=== PATIENT | female | born 1975 | race Caucasian/White ===

== ENCOUNTER 2022-01-12 13:51 | Emergency (ER) | payer MEDICARE, MEDICAID, SELFPAY ==
[2022-01-12 14:44] VITALS: BP 150/99; PULSE 60; RESP 18; TEMP 36.5; O2SAT 97; BMI 32.8
[2022-01-12 15:16] LABS: MANUAL DIFF FLAG NO
[2022-01-12 15:18] LABS: Basophils Absolute Auto 0.1 X10*3/uL (0.0-0.2); Basophils Percent Auto 0.6 % (0-2); Eosinophils Absolute Auto 0.4 X10*3/uL (0.0-0.4); Eosinophils Percent Auto 4.4 % (0-4); Hematocrit 30.7 % (37.0-47.0); Hemoglobin 9.2 g/dl (12.0-16.0); Imm Gran Abs Auto 0.03 X10*3/uL (0.00-0.03); Imm Gran Pct Auto 0.3 % (0.0-0.4); Lymphocytes Absolute Auto 2.3 X10*3/uL (1.2-4.9); Mean Corpuscular Hemoglobin 22.3 pg (27.0-33.0); Mean Corpuscular Volume 74.5 fL (80.0-98.0); Mean Platelet Volume 10.8 fL (9.4-12.3); Monocytes Absolute Auto 0.4 X10*3/uL (0.1-1.2); Neutrophils Absolute Auto 5.5 x10*3/uL (2.0-8.3); Neutrophils Percent Auto 63.7 % (45-73); Platelet Count 304 X10*3/uL (160-400); Red Blood Count 4.12 X10*6/uL (4.20-5.50); Red Cell Distribution Width 17.7 % (11.0-16.0); White Blood Count 8.7 X10*3/uL (4.8-10.8)
[2022-01-12 15:43] LABS: Alanine Aminotransferase 17 U/L (0-31); Albumin Level 4.3 g/dL (3.5-5.0); Alkaline Phosphatase 64 U/L (39-117); Anion Gap 12 (12-20); Aspartate Amino Transferase 27 U/L (5-31); Bilirubin Direct 0.2 mg/dL (0.0-0.5); Bilirubin Total 0.5 mg/dL (0.0-1.0); Blood Urea Nitrogen 11 mg/dL (9-16); Calcium 9.1 mg/dL (8.4-10.2); Carbon Dioxide 31 mmol/L (22-29); Chloride 101 mmol/L (96-108); Creatinine Clr Calc Pharmacy 65.4; Estimated Glomerular Filt Rate 52; Glucose Random 98 mg/dL (60-115); Iron 40 mcg/dL (30-160); Percent Iron Saturation 8 % (15-50); Potassium 3.5 mmol/L (3.3-5.1); Sodium 140 mmol/L (135-145); Total Iron Binding Capacity 495 mcg/dL (228-428); Total Protein 6.8 g/dL (6.5-8.0); Unsaturated Iron Binding 455 ug/dL
[2022-01-12 16:02] LABS: Ferritin 9 ng/mL (10-250)
[2022-01-17 03:37] LABS: Transferrin 388 mg/dL (188-341)
== END 2022-01-12 20:07 | disposition left against medical advice (07) ==
LOC: HO.ED 20:04
PROVIDERS: Physician Assistant; Emergency Provider Emergency Medicine; PCP Physician Assistant
DX: N93.9 Abnormal uterine and vaginal bleeding, unspecified (principal); R42 Dizziness and giddiness; D64.9 Anemia, unspecified
CPT/HCPCS: 36415; 80048; 80076; 82728; 83540; 84466; 85025; 99281; 99283

== ENCOUNTER 2022-02-14 12:04 | Outpatient (REF) | payer MEDICARE, MEDICAID, SELFPAY ==
--- NOTE | ~2022-02-14 | XR_ITS ---
EXAMINATION: XR HAND, RIGHT XR HAND, LEFT CLINICAL INFORMATION: Rheumatoid arthritis with rheumatoid factor, bilateral hands COMPARISON: None TECHNIQUE: Each hand is imaged in 3 views. There are a total of 6 views. FINDINGS: Right: Normal bony mineralization. No periarticular demineralization. Ulnar variance is neutral. The carpus shows no joint narrowing or erosive change or chondrocalcinosis. The MCP and interphalangeal joints are unremarkable. There is incidental bone island within shaft index finger middle phalanx. Left: Normal bony mineralization. No periarticular demineralization. Ulnar variance is neutral. The carpus shows no joint narrowing or erosive change or chondrocalcinosis. The MCP and interphalangeal joints are unremarkable. XR/XR hand LT 2V IMPRESSION: -No focal joint narrowing or erosive changes.
--- NOTE | ~2022-02-14 | XR_ITS ---
EXAMINATION: XR HAND, RIGHT XR HAND, LEFT CLINICAL INFORMATION: Rheumatoid arthritis with rheumatoid factor, bilateral hands COMPARISON: None TECHNIQUE: Each hand is imaged in 3 views. There are a total of 6 views. FINDINGS: Right: Normal bony mineralization. No periarticular demineralization. Ulnar variance is neutral. The carpus shows no joint narrowing or erosive change or chondrocalcinosis. The MCP and interphalangeal joints are unremarkable. There is incidental bone island within shaft index finger middle phalanx. Left: Normal bony mineralization. No periarticular demineralization. Ulnar variance is neutral. The carpus shows no joint narrowing or erosive change or chondrocalcinosis. The MCP and interphalangeal joints are unremarkable. XR/XR hand RT 2V IMPRESSION: -No focal joint narrowing or erosive changes.
[2022-02-14 13:24] LABS: Hematocrit 33.5 % (37.0-47.0); Hemoglobin 9.7 g/dl (12.0-16.0); Mean Corpuscular Hemoglobin 21.6 pg (27.0-33.0); Mean Corpuscular Volume 74.6 fL (80.0-98.0); Mean Platelet Volume 11.1 fL (9.4-12.3); Platelet Count 286 X10*3/uL (160-400); Red Blood Count 4.49 X10*6/uL (4.20-5.50); Red Cell Distribution Width 19.5 % (11.0-16.0); White Blood Count 6.3 X10*3/uL (4.8-10.8)
[2022-02-14 14:07] LABS: Creatinine Urine 268.23 mg/dL; Microalbum/Creatinine Ratio Ur 21.2 ug/mg cr
[2022-02-14 14:15] LABS: Alanine Aminotransferase 14 U/L (0-31); Albumin Level 4.2 g/dL (3.5-5.0); Alkaline Phosphatase 64 U/L (39-117); Anion Gap 13 (12-20); Aspartate Amino Transferase 17 U/L (5-31); Bilirubin Total 0.3 mg/dL (0.0-1.0); Blood Urea Nitrogen 11 mg/dL (9-16); Calcium 9.5 mg/dL (8.4-10.2); Carbon Dioxide 29 mmol/L (22-29); Chloride 102 mmol/L (96-108); Estimated Glomerular Filt Rate > 60; Glucose Fasting 74 mg/dL (60-99); Iron 26 mcg/dL (30-160); Percent Iron Saturation 5 % (15-50); Potassium 3.7 mmol/L (3.3-5.1); Sodium 140 mmol/L (135-145); Total Iron Binding Capacity 507 mcg/dL (228-428); Total Protein 6.7 g/dL (6.5-8.0); Unsaturated Iron Binding 481 ug/dL
[2022-02-14 14:22] LABS: Rheumatoid Factor < 15.0 IU/mL (<15.0)
[2022-02-14 14:38] LABS: TSH reflex Free T4 28.26 uIU/mL (0.32-4.0)
[2022-02-14 15:14] LABS: Free T4 (Free Thyroxine) < 0.40 ng/dL (0.71-1.85)
[2022-02-15 13:56] LABS: Cyclic Citrullinated Peptide <16 UNITS
[2022-02-16 13:32] LABS: Anti Nuclear Antibody Screen NEGATIVE (NEGATIVE)
== END 2022-02-14 12:05 | disposition home or self-care (01) ==
LOC: HO.XRAY 12:04
PROVIDERS: PCP Physician Assistant; Visit Provider Physician Assistant
DX: K27.9 Peptic ulcer, site unspecified, unspecified as acute or chronic, without hemorrhage or perforation (principal); E89.0 Postprocedural hypothyroidism; I10 Essential (primary) hypertension; M06.041 Rheumatoid arthritis without rheumatoid factor, right hand; M06.042 Rheumatoid arthritis without rheumatoid factor, left hand; D50.9 Iron deficiency anemia, unspecified
CPT/HCPCS: 36415; 73120; 80053; 82043; 83540; 84439; 84443; 85027; 86038; 86039; 86200; 86431

== ENCOUNTER 2022-02-21 12:36 | Outpatient (REF) | payer MEDICARE, MEDICAID, SELFPAY ==
--- NOTE | ~2022-02-21 | MM_ITS ---
EXAMINATION: MM SCREENING DIGITAL BREAST TOMOSYNTHESIS, BILATERAL CLINICAL INFORMATION: Screening. Asymptomatic. Age 46. No prior breast imaging. Personal history remote reduction mammoplasty, 1994. The lifetime risk of breast cancer based on the Tyrer-Cuzick Model is 10%. COMPARISON: None (current study represents initial baseline exam). TECHNIQUE: Digital breast tomosynthesis is performed in both the craniocaudal and mediolateral oblique views along with computer-aided detection (CAD). Synthesized 2D images are generated from the tomosynthesis. FINDINGS: There are scattered areas of fibroglandular density (ACR BI-RADS breast composition Category b). There are no significant masses, abnormal calcifications, or other abnormalities. The axilla are unremarkable. MM/MM tomosynthesis screening BI IMPRESSION: No mammographic evidence of malignancy. ASSESSMENT: BI-RADS 1: Negative RECOMMENDATION: Routine annual mammography screening. This patient's information was entered into a reminder system with a target due date for their next mammogram.
== END 2022-02-21 12:37 | disposition home or self-care (01) ==
LOC: HO.MAMMO 12:36
PROVIDERS: Visit Provider Physician Assistant
DX: Z12.31 Encounter for screening mammogram for malignant neoplasm of breast (principal)
CPT/HCPCS: 77063; 77067

== ENCOUNTER 2022-03-08 13:10 | Outpatient (REF) | payer MEDICARE, MEDICAID, SELFPAY ==
[2022-03-10 11:57] LABS: H Pylori Breath Test Negative (Negative)
== END 2022-03-08 13:11 | disposition home or self-care (01) ==
LOC: HO.LNP 13:10
PROVIDERS: PCP Physician Assistant; Referring Provider Physician Assistant; Visit Provider Physician Assistant
DX: K59.04 Chronic idiopathic constipation (principal); K21.9 Gastro-esophageal reflux disease without esophagitis; K27.9 Peptic ulcer, site unspecified, unspecified as acute or chronic, without hemorrhage or perforation; R13.10 Dysphagia, unspecified; N92.0 Excessive and frequent menstruation with regular cycle; D64.9 Anemia, unspecified; A04.8 Other specified bacterial intestinal infections; Z78.9 Other specified health status; Z79.899 Other long term (current) drug therapy; Z11.0 Encounter for screening for intestinal infectious diseases
CPT/HCPCS: 83013; 99202

== ENCOUNTER → 2022-03-16 13:56 | Outpatient (BNVA) | payer MEDICARE, MEDICAID, SELFPAY | PROVIDERS: PCP Physician Assistant; Visit Provider Internal Medicine | DX: E89.0 Postprocedural hypothyroidism (principal) | CPT/HCPCS: 99202 ==

== ENCOUNTER 2022-03-23 14:06 | Outpatient (REF) | payer MEDICARE, MEDICAID, SELFPAY ==
--- NOTE | ~2022-03-23 | US_ITS ---
EXAMINATION: US THYROID CLINICAL INFORMATION: [id number] diffuse (endemic) goiter. COMPARISON: None TECHNIQUE: Linear transducer grayscale and color Doppler examination with attention to the region of the thyroid. FINDINGS: SIZE: Measurements of the thyroid lobes and nodules are given in sagittal, anteroposterior and transverse dimensions respectively. Right Thyroid Lobe: 4.6 x 1.1 x 1.1 cm, volume 2.9 mL. Left Thyroid Lobe: 3.9 x 0.7 x 0.9 cm, volume 1.3 mL. Isthmus: 0.1 cm in maximum AP dimension. THYROID PARENCHYMA AND NODULES: The atrophied thyroid gland has heterogeneous echotexture. The gland has a hypervascular appearance on color Doppler images. Several clustered solid, noncalcified, smoothly marginated nodules are present in each thyroid lobe. A few of the nodules have been selected by the survey technologist for measurement, including the followin.6 x 0.5 x 0.7 cm solid, hypoechoic nodule of the right upper pole. ACR TI-RADS score of 4 points, TR4. 1 x 0.6 x 0.9 cm isoechoic nodule in the right middle lobe. ACR TI-RADS score of 3 points, TR3. 1.2 x 0.6 x 0.7 cm solid, heterogeneous, predominantly isoechoic nodule is present in the right lower pole. ACR TI-RADS score of 3 points, TR3. 0.7 x 0.5 x 0.5 cm solid hypoechoic nodule of the left upper pole. ACR TI-RADS score of 4 points, TR4. 0.8 x 0.5 x 0.6 cm isoechoic nodule with hypoechoic border is present in the left lower pole. ACR TI-RADS score of 3 points, TR3. NODES: A level 3 lymph node seen in the right neck measure 0.4 cm in short axis dimension. A level 2 lymph node is at the upper range of normal size, 0.9 cm short axis dimension, with well-preserved echogenic fatty hilum. US/US thyroid IMPRESSION: Atrophied multinodular thyroid gland. The gland has a hypervascular appearance. Recommend correlation with thyroid function tests. Based on use of ACR TI-RADS, there are no nodules that require recommendations for follow-up or fine needle aspiration-biopsy. However, ACR TI-RADS Committee recommendations serve as guidance. Ultimately, decisions regarding whether or not to perform ultrasound follow-up or FNA should account for referring physician preference, patient risk factors for thyroid cancer, patient age, comorbidities, life expectancy and any other relevant considerations. ACR TI-RADS RECOMMENDATIONS: * TR1 (0 point) and TR 2 (2 points): No FNA or follow up * TR3 (3 points): FNA if at least 2.5 cm maximum dimension. Otherwise, perform ultrasound follow up in 1, 3 and 5 years if at least 1.5 cm maximum dimension. * TR4 (4-6 points): FNA if at least 1.5 cm maximum dimension. Otherwise, perform ultrasound follow up in 1, 2, 3 and 5 years if at least 1 cm maximum dimension. * TR5 (more than or equal to 7 points): FNA if at least 1 cm in maximum dimension. Otherwise, perform ultrasound follow up every year for 5 years if at least 0.5 cm in maximum dimension.
== END 2022-03-23 14:07 | disposition home or self-care (01) ==
LOC: HO.US 14:06
PROVIDERS: Visit Provider Physician Assistant
DX: E01.0 Iodine-deficiency related diffuse (endemic) goiter (principal)
CPT/HCPCS: 76536

== ENCOUNTER 2022-03-27 13:46 | Outpatient (REF) | payer MEDICARE, MEDICAID, SELFPAY | END 2022-03-27 13:47 | disposition home or self-care (01) | LOC: HO.MDS 13:46 | PROVIDERS: Visit Provider Internal Medicine Medical Oncology | DX: D50.9 Iron deficiency anemia, unspecified (principal) | CPT/HCPCS: J1756 ==

== ENCOUNTER → 2022-04-18 13:15 | Outpatient (BNVA) | payer MEDICARE, MEDICAID, SELFPAY | PROVIDERS: PCP Physician Assistant; Referring Provider Physician Assistant; Visit Provider Physician Assistant | DX: K59.04 Chronic idiopathic constipation (principal); R13.10 Dysphagia, unspecified; D64.9 Anemia, unspecified; Z78.9 Other specified health status | CPT/HCPCS: 99212 ==

== ENCOUNTER 2022-05-10 14:04 | Outpatient (REF) | payer MEDICARE, MEDICAID, SELFPAY | END 2022-05-10 14:05 | disposition home or self-care (01) | LOC: HO.MDS 14:04 | PROVIDERS: Visit Provider Internal Medicine Medical Oncology | DX: D50.9 Iron deficiency anemia, unspecified (principal) | CPT/HCPCS: 96365; J1756 ==

== ENCOUNTER 2022-06-20 13:13 | Outpatient (REF) | payer MEDICARE, MEDICAID, SELFPAY | END 2022-06-20 13:14 | disposition home or self-care (01) | LOC: HO.MDS 13:13 | PROVIDERS: Visit Provider Internal Medicine Medical Oncology | DX: D50.9 Iron deficiency anemia, unspecified (principal) | CPT/HCPCS: 96365; J1756 ==

== ENCOUNTER 2022-06-29 13:05 | Outpatient (REF) | payer MEDICARE, MEDICAID, SELFPAY | END 2022-06-29 13:06 | disposition home or self-care (01) | LOC: HO.MDS 13:05 | PROVIDERS: Visit Provider Internal Medicine Medical Oncology | DX: D50.9 Iron deficiency anemia, unspecified (principal) | CPT/HCPCS: 96365; J1756 ==

== ENCOUNTER 2022-07-06 15:00 | Outpatient (REF) | payer MEDICARE, MEDICAID, SELFPAY | END 2022-07-06 15:01 | disposition home or self-care (01) | LOC: HO.MDS 15:00 | PROVIDERS: Visit Provider Internal Medicine Medical Oncology | DX: D50.9 Iron deficiency anemia, unspecified (principal) | CPT/HCPCS: 96365; J1756 ==

== ENCOUNTER 2022-07-14 11:58 | Outpatient (REF) | payer MEDICARE, MEDICAID, SELFPAY | END 2022-07-14 11:59 | disposition home or self-care (01) | LOC: HO.MDS 11:58 | PROVIDERS: Visit Provider Internal Medicine Medical Oncology | DX: D50.9 Iron deficiency anemia, unspecified (principal) | CPT/HCPCS: 96365; J1756 ==

== ENCOUNTER 2022-07-27 13:05 | Outpatient (REF) | payer MEDICARE, MEDICAID, SELFPAY | END 2022-07-27 13:06 | disposition home or self-care (01) | LOC: HO.MDS 13:05 | PROVIDERS: Visit Provider Internal Medicine Medical Oncology | DX: D50.9 Iron deficiency anemia, unspecified (principal) | CPT/HCPCS: 96365; J1756 ==

== ENCOUNTER 2022-08-04 14:03 | Outpatient (REF) | payer MEDICARE, MEDICAID, SELFPAY | END 2022-08-04 14:04 | disposition home or self-care (01) | LOC: HO.MDS 14:03 | PROVIDERS: Visit Provider Internal Medicine Medical Oncology | DX: D50.9 Iron deficiency anemia, unspecified (principal) | CPT/HCPCS: 96365; J1756 ==

== ENCOUNTER 2022-08-24 12:54 | Outpatient (REF) | payer MEDICARE, MEDICAID, SELFPAY ==
[2022-08-24 13:53] LABS: MANUAL DIFF FLAG NO
[2022-08-24 14:05] LABS: Basophils Percent Auto 0.3 % (0-2); Eosinophils Absolute Auto 0.4 X10*3/uL (0.0-0.4); Eosinophils Percent Auto 5.1 % (0-4); Hematocrit 40.2 % (37.0-47.0); Hemoglobin 12.5 g/dl (12.0-16.0); Imm Gran Abs Auto 0.03 X10*3/uL (0.00-0.03); Imm Gran Pct Auto 0.4 % (0.0-0.4); Lymphocytes Percent Auto 26.6 % (20-40); Mean Corpuscular HGB Conc 31.1 g/dl (31.0-35.0); Mean Corpuscular Hemoglobin 26.7 pg (27.0-33.0); Mean Corpuscular Volume 85.9 fL (80.0-98.0); Mean Platelet Volume 10.8 fL (9.4-12.3); Monocytes Absolute Auto 0.4 X10*3/uL (0.1-1.2); Monocytes Percent Auto 4.8 % (2-11); Neutrophils Absolute Auto 4.7 x10*3/uL (2.0-8.3); Neutrophils Percent Auto 62.8 % (45-73); Platelet Count 218 X10*3/uL (160-400); Red Blood Count 4.68 X10*6/uL (4.20-5.50); Red Cell Distribution Width 19.9 % (11.0-16.0); White Blood Count 7.5 X10*3/uL (4.8-10.8)
[2022-08-24 14:32] LABS: Ferritin 51 ng/mL (10-250)
== END 2022-08-24 12:55 | disposition home or self-care (01) ==
LOC: HO.MDS 12:54
PROVIDERS: Visit Provider Internal Medicine Medical Oncology
DX: D50.9 Iron deficiency anemia, unspecified (principal)
CPT/HCPCS: 36415; 82728; 85025; 96365

== ENCOUNTER 2022-09-05 12:43 | Outpatient (REF) | payer MEDICARE, MEDICAID, SELFPAY ==
[2022-09-05 14:11] LABS: Free T4 (Free Thyroxine) 1.36 ng/dL (0.71-1.85); Thyroid Stimulating Hormone 0.17 uIU/mL (0.32-4.0)
== END 2022-09-05 12:44 | disposition home or self-care (01) ==
LOC: HO.LAB 12:43
PROVIDERS: Absent Provider Internal Medicine; Visit Provider Physician Assistant
DX: E89.0 Postprocedural hypothyroidism (principal)
CPT/HCPCS: 36415; 84439; 84443

== ENCOUNTER → 2022-09-06 15:16 | Outpatient (BNVA) | payer MEDICARE, MEDICAID, SELFPAY | PROVIDERS: PCP Physician Assistant; Visit Provider Internal Medicine | DX: E89.0 Postprocedural hypothyroidism (principal); E04.1 Nontoxic single thyroid nodule; Z79.899 Other long term (current) drug therapy | CPT/HCPCS: 99212 ==

== ENCOUNTER 2022-10-10 14:09 | Outpatient (REF) | payer MEDICARE, MEDICAID, SELFPAY ==
[2022-10-11 09:12] LABS: CT PCR NOT DETECTED (Not Detect.); NG PCR NOT DETECTED (Not Detect.)
[2022-10-11 10:12] LABS: BV Int Neg Control Negative (Negative); BV Int Pos Control Positive (Positive)
[2022-10-17 10:33] LABS: HPV mRNA E6/E7 rflx Not Detected (Not Detected)
== END 2022-10-10 14:10 | disposition home or self-care (01) ==
LOC: HO.LNP 14:09
PROVIDERS: PCP Physician Assistant; Visit Provider Advanced Practice Midwife
DX: Z12.4 Encounter for screening for malignant neoplasm of cervix (principal); Z11.51 Encounter for screening for human papillomavirus (HPV); I10 Essential (primary) hypertension; N92.0 Excessive and frequent menstruation with regular cycle; N93.9 Abnormal uterine and vaginal bleeding, unspecified; Z20.2 Contact with and (suspected) exposure to infections with a predominantly sexual mode of transmission
CPT/HCPCS: 0353U; 87480; 87510; 87624; 87660; 88142; 99202

== ENCOUNTER 2022-12-01 13:22 | Outpatient (REF) | payer MEDICARE, MEDICAID, SELFPAY ==
[2022-12-01 14:50] LABS: Free T4 (Free Thyroxine) 0.93 ng/dL (0.71-1.85)
== END 2022-12-01 13:23 | disposition home or self-care (01) ==
LOC: HO.LAB 13:22
PROVIDERS: Internal Medicine; PCP Physician Assistant; Visit Provider Advanced Practice Midwife
DX: E89.0 Postprocedural hypothyroidism (principal)
CPT/HCPCS: 36415; 84439; 84443

== ENCOUNTER 2022-12-21 07:48 | Outpatient (REF) | payer MEDICARE, MEDICAID, SELFPAY ==
--- NOTE | 2022-12-21 08:47 | P.BOP_ITS ---
Brief Operative Note Date of Service: 12/21/22 Pre-op diagnosis: Goiter Procedure: EXAMINATION: US THYROID CLINICAL INFORMATION: Multinodular Thyroid COMPARISON: Prior TECHNIQUE: Linear transducer james-scale and color Doppler examination with attention to the region of the thyroid. FINDINGS: SIZE: Measurements of the thyroid lobes and nodules are given in sagittal, anteroposterior and transverse dimensions respectively. Right Thyroid Lobe: 3.2 x 1.1 x 1.1 cm, volume 2.2 mL. Parenchyma: The gland echotexture is diffusely heterogenous. Thyroid vascularity is increased. Left Thyroid Lobe: 3.2 x 0.9 x 1.0 cm, volume mL. Parenchyma: The gland echotexture is diffusely heterogenous. Thyroid vascularity is increased. Isthmus: 0.2 cm in maximum AP dimension. There are no true nodules visualized, only pseudonodules. Surgeon: Leeann Marcial, DO Was an Utility Tractor Operator used for this Procedure?: No Estimated blood loss (mL): 0
== END 2022-12-21 07:49 | disposition home or self-care (01) ==
LOC: HO.US 07:48
PROVIDERS: PCP Physician Assistant; Visit Provider Internal Medicine
DX: E04.1 Nontoxic single thyroid nodule (principal)
CPT/HCPCS: 76536

== ENCOUNTER → 2022-12-21 07:48 | Outpatient (BNV) | payer MEDICARE, MEDICAID, SELFPAY | PROVIDERS: PCP Physician Assistant; Visit Provider Internal Medicine | DX: E04.1 Nontoxic single thyroid nodule (principal) | CPT/HCPCS: 76536 ==

== ENCOUNTER 2023-01-03 08:35 | Outpatient (AMB) | payer MEDICARE, MEDICAID, SELFPAY ==
--- NOTE | 2023-01-03 08:35 | MHC.OFFVIS ---
Intake Intake Visit Reasons: FNA results Intake Note: Patient reports biopsy was cancelled, and she had an Ultrasound of the Thyroid. Pmo Consultant Required: No Allergies fentanyl Allergy (Intermediate, Verified 01/03/23 11:14) Rash morphine Allergy (Intermediate, Verified 01/03/23 11:14) Shortness of Breath Medication List - Last Reconciled 01/03/23 by Leeann Marcial, DO acetaminophen 1,000 mg PO Q8H amlodipine 5 mg PO DAILY bisacodyl (Dulcolax (bisacodyl)) 10 mg (2 x 5 mg) PO ONCE 1 day blood pressure test kit-large As directed docusate sodium (Colace) 200 mg (2 x 100 mg) PO BEDTIME enalapril maleate 20 mg PO DAILY 30 days hydromorphone 4 mg PO Q4H PRN lactulose 20 grams (30 mL) PO BID PRN 30 days levothyroxine 125 mcg PO DAILY 30 days levothyroxine 125 mcg PO DAILY 30 days lorazepam mg PO methylcellulose (laxative) (Citrucel) 500 mg PO TID metronidazole 0.75%(37.5mg/5gram) 1 appful vaginal BEDTIME 5 days nicotine 1 patch topical DAILY omeprazole 20 mg PO BID 30 days polyethylene glycol 3350 (Miralax) 17 grams PO DAILY sucralfate 1 g PO BID 4 weeks HPI HPI Comments History of Present Illness Details 47 YO Female with PMHx Grave's disease s/p I131 ablation who is seen in F/U for hypothyroidism. She reports she was diagnosed with Grave's disease at the age of 16 and underwent I131 ablation shortly after. She subsequently developed hypothyroidism and was prescribed levothyroxine. Dose has fluctuataed due to issues with compliance. I repeated her US myself and found her to have no true nodules, only pseudonodules. She does have some evidence of prominent reactive appearing lymph nodes bilaterally. Complains of fatigue and dysphagia. Otherwise has no complaints today. She does have a family history of thyroid disease in her Sister and Father. Thyroid US: 03/23/2022 Right Thyroid Lobe: 4.6 x 1.1 x 1.1 cm, volume 2.9 mL. Left Thyroid Lobe: 3.9 x 0.7 x 0.9 cm, volume 1.3 mL. Isthmus: 0.1 cm in maximum AP dimension. THYROID PARENCHYMA AND NODULES: The atrophied thyroid gland has heterogeneous echotexture. The gland has a hypervascular appearance on color Doppler images. Several clustered solid, noncalcified, smoothly marginated nodules are present in each thyroid lobe. A few of the nodules have been selected by the radioisotope technologist for measurement, including the followin.6 x 0.5 x 0.7 cm solid, hypoechoic nodule of the right upper pole. ACR TI-RADS score of 4 points, TR4. 1 x 0.6 x 0.9 cm isoechoic nodule in the right middle lobe. ACR TI-RADS score of 3 points, TR3. 1.2 x 0.6 x 0.7 cm solid, heterogeneous, predominantly isoechoic nodule is present in the right lower pole. ACR TI-RADS score of 3 points, TR3. 0.7 x 0.5 x 0.5 cm solid hypoechoic nodule of the left upper pole. ACR TI-RADS score of 4 points, TR4. 0.8 x 0.5 x 0.6 cm isoechoic nodule with hypoechoic border is present in the left lower pole. ACR TI-RADS score of 3 points, TR3. NODES: A level 3 lymph node seen in the right neck measure 0.4 cm in short axis dimension. A level 2 lymph node is at the upper range of normal size, 0.9 cm short axis dimension, with well-preserved echogenic fatty hilum. Labs: Laboratory Tests 12/01/22 13:31 TSH 6.60 H Free T4 0.93 PFSH Medical History Cervical cancer screening Cervical lymphadenopathy section wound complication Fibromyalgia Graves disease Thyroid nodule Surgical History H/O bilateral breast reduction surgery Status post cholecystectomy Family History Mother Depression Anxiety Fibromyalgia Cataract associated with other syndromes Thyroid disorder Father Stroke (cerebrum) Thyroid disorder Family/Other Breast cancer Ovarian cancer Social History Household Members: Spouse and Children Housing: Apartment Are you a primary career development coordinator to a significant other at home: No Do you presently have visiting nurse or other home services: No Alcohol intake: never Patient Tobacco Use Status: Current everyday Tobacco user Cigarettes Per Day: 7 e-Cigarette/Vaping Use: Never Used service: No Current occupational status: disabled Cognitive needs: No Hearing needs: No Vision needs: Yes (Pt will need to be refer to an eye doctor. ) Female Reproductive History Menstrual Age of Menarche: 9 Assessment & Plan Assessment & Plan (1) Hypothyroid: Code(s): E03.9 - Hypothyroidism, unspecified Qualifiers: Hypothyroidism type: postablative Qualified Code(s): E89.0 - Postprocedural hypothyroidism Plan: Labs reveal hypothyroidism. I have advised she increase her levothyroxine to 125 mcg PO daily and repeat labs in 6 weeks time. All of her questions were answered. She is in agreement with this plan of care. I spent 20 minutes in reviewing the record, seeing the patient and documenting in the medical record, including 5 minutes on the phone with the Patient. (2) Thyroid nodule: Code(s): E04.1 - Nontoxic single thyroid nodule Plan: I repeated her US myself and found her to have a diffusely heterogenous thyroid gland consistent with parker's disease. No true nodules were appreciated, so no FNA biopsy was performed. She does have prominent lymph nodes bilaterally. Plan is to repeat her US cervical lymph node mapping in 3 months time. Medications: New levothyroxine 125 mcg PO DAILY 30 days 30 tabs 3RF Telehealth Telehealth Location of provider rendering services: practice address Location of patient: address on file Patient Identification confirmed using: Name, : Yes Telehealth method: voice only Patient verbally consented to treatment: Yes Patient verbally consented to billing insurance company: Yes Patient informed of any privacy concerns related to visit: Yes Coding Level of Care Code Tele Est Pt Level 3 (82284) Diagnoses Hypothyroid E89.0 Hypothyroidism type: postablative Thyroid nodule E04.1
== END 2023-01-03 14:36 | disposition home or self-care (01) ==
LOC: HO.ENCR 08:35
PROVIDERS: PCP Physician Assistant; Visit Provider Internal Medicine
DX: E89.0 Postprocedural hypothyroidism (principal); E04.1 Nontoxic single thyroid nodule
CPT/HCPCS: 99443

== ENCOUNTER → 2023-01-03 08:35 | Outpatient (BNVA) | payer MEDICARE, MEDICAID, SELFPAY | PROVIDERS: PCP Physician Assistant; Visit Provider Internal Medicine ==

== ENCOUNTER 2023-01-08 12:32 | Outpatient (REF) | payer MEDICARE, MEDICAID, SELFPAY ==
--- NOTE | ~2023-01-08 | US_ITS ---
EXAMINATION: US SOFT TISSUE NECK CLINICAL INFORMATION: Localized enlarged lymph nodes Cervical lymph node mapping COMPARISON: 03/23/2022 ultrasound TECHNIQUE: Ultrasound of the neck soft tissues is performed with high- frequency james-scale imaging and color Doppler. FINDINGS: RIGHT NECK SOFT TISSUES: Cervical lymph nodes include: Level IB: 1.1 x 0.5 x 0.9 cm. Normal chandni architecture. Level II: 1.0 x 0.5 x 0.8 cm. Normal chandni architecture. Level VA: 1.0 x 0.4 x 0.6 cm. Abnormal, Slitlike or Absent Hilum. Level VA: 0.9 x 0.5 x 0.5 cm. Normal chandni architecture. Level VB: 3.0 x 0.5 x 1.7 cm. Abnormal, Slitlike or Absent Hilum. Level VB: 1.2 x 0.7 x 0.9 cm. Abnormal, Slitlike or Absent Hilum. LEFT NECK SOFT TISSUES: Cervical lymph nodes include: Level IB: 1.2 x 0.7 x 0.9 cm. Abnormal, irregular margins. Level IV: 1.2 x 0.3 x 0.9 cm. Normal chandni architecture. Level VA: 0.7 x 0.5 x 0.7 cm. Normal chandni architecture. Level VA: 1.9 x 0.7 x 1.0 cm. Normal chandni architecture US/US soft tiss head and/or neck IMPRESSION: 1. Bilateral abnormal lymph nodes are seen. 2. If clinically indicated further evaluation of the neck soft tissues and nodes may be performed with CT soft tissue neck with intravenous contrast.
--- NOTE | ~2023-01-08 | US_ITS ---
EXAMINATION: US PELVIS CLINICAL INFORMATION: Excessive and frequent menstruation with regular cycle LMP 11/04/2022 COMPARISON: None available. TECHNIQUE: Ultrasound of the pelvis is performed using both transabdominal and transvaginal transducers along with Doppler. Transvaginal imaging is performed due to inadequate visualization transabdominally. Limited exam due to position of uterus (tilted). Patient cannot tolerate the transvaginal exam. FINDINGS: Uterus: The uterus is anteverted and measures 9.3 x 5.0 x 5.5 cm. No focal fibroid It is difficult to visualize the endometrium. The endometrium measures 0.7 cm. Adnexa: Both ovaries are visualized. There is normal color flow to the adnexa. There is no ovarian torsion. There is no pelvic ascites or fluid collection. Right ovary measures 2.7 x 1.4 x 2.4 cm. 4.7 mL. Left ovary measures 2.0 x 1.2 x 1.5 cm. 1.9 mL. The left ovary is only seen transabdominally. US/US pelvic and transvaginal IMPRESSION: Normal pelvic ultrasound.
== END 2023-01-08 12:33 | disposition home or self-care (01) ==
LOC: HO.US 12:32
PROVIDERS: Absent Provider Internal Medicine; PCP Physician Assistant; Visit Provider Advanced Practice Midwife
DX: D50.0 Iron deficiency anemia secondary to blood loss (chronic) (principal); N92.0 Excessive and frequent menstruation with regular cycle; R59.0 Localized enlarged lymph nodes
CPT/HCPCS: 76536; 76830; 76856

== ENCOUNTER 2023-01-10 11:37 | Outpatient (AMB) | payer MEDICARE, MEDICAID, SELFPAY ==
[2023-01-10 11:38] VITALS: BP 180/100
--- NOTE | 2023-01-10 11:38 | A.OFFVIS_ITS ---
Intake Vital Signs 01/10/23 11:38 Height 5 ft 4 in BP 180/100 H Blood Pressure Location Lt brachial Position Sitting Intake Visit Reasons: emb/ultra sound follow up Corrugator Helper Required: No Accompanied by: Self / Same As Patient Allergies fentanyl Allergy (Intermediate, Verified 01/03/23 11:14) Rash morphine Allergy (Intermediate, Verified 01/03/23 11:14) Shortness of Breath Medication List - Last Reconciled 01/10/23 by Josey Chacon CNM acetaminophen 1,000 mg PO Q8H amlodipine 5 mg PO DAILY blood pressure test kit-large As directed enalapril maleate 20 mg PO DAILY 30 days hydromorphone 4 mg PO Q4H PRN levothyroxine 125 mcg PO DAILY 30 days levothyroxine 125 mcg PO DAILY 30 days lorazepam mg PO methylcellulose (laxative) (Citrucel) 500 mg PO TID nicotine 1 patch topical DAILY omeprazole 20 mg PO BID 30 days HPI emb/ultra sound follow up HPI Details Patient is here for follow-up of her ultrasound and is scheduled also for an endometrial biopsy she however is in a lot of pain because she has been in the hospital the last couple of days for bursitis in her left hip. She is moving very stiffly she has also recently had an ultrasound checking on her lymph glands in her neck that was ordered by Dr. Hooker that was done the same day as pelvic ultrasound and that is going to need follow-up she has had difficulty swallowing and occasionally loses her voice she had radiation for Graves disease years ago. Additionally she was in the hospital a month ago and was brought by ambulance from [facility] to [facility] and had pain and that got worked up and she had a lesion in her kidney that is suspicious for neoplasm. She was evaluated by a physician at [facility] and there was discussion about biopsy but the concern was about the exact placement of the lesion and consequences of doing a biopsy in that particular site and concern about spread. She has follow-up scans ordered. She does not have a current appointment in her schedule with either Dr. Hooker or her primary Duglas Levine. Because she is so uncomfortable today the endometrial biopsy will be rescheduled I did review the ultrasound with her which was essentially within normal limits though she was too uncomfortable on the day that the ultrasound was done as well and could not tolerate the transvaginal portion of the ultrasound. There was no abnormal finding on the ultrasound however so this is of some assurance. We will reschedule her endometrial biopsy but I recommend also that she passed by the offices of 1 of her other care providers here while she is here today and make a follow-up appointment so that somebody can be involved with looking at the entire T of the picture of issues going on for her so that her care is not scattered. She is also going to be starting classes in substance abuse counseling, which she has experience in, at [facility]-- she is looking forward to that she does have a therapist for support and will be seeing her or him on Sunday. We will reschedule the [facility] Medical History Cervical cancer screening Cervical lymphadenopathy section wound complication Fibromyalgia Graves disease Thyroid nodule Surgical History H/O bilateral breast reduction surgery Status post cholecystectomy Family History Mother Depression Anxiety Fibromyalgia Cataract associated with other syndromes Thyroid disorder Father Stroke (cerebrum) Thyroid disorder Family/Other Breast cancer Ovarian cancer Social History Household Members: Spouse and Children Housing: Apartment Are you a primary youth care professional to a significant other at home: No Do you presently have visiting nurse or other home services: No Alcohol intake: never Patient Tobacco Use Status: Current everyday Tobacco user Cigarettes Per Day: 7 e-Cigarette/Vaping Use: Never Used service: No Current occupational status: disabled Cognitive needs: No Hearing needs: No Vision needs: Yes (Pt will need to be refer to an eye doctor. ) Female Reproductive History Menstrual Age of Menarche: 9 Physical Exam Vital Signs: Last Vital Signs BP 180/100 H 01/10/23 11:38 Results AMB Test Urine AMB Test Urine Negative Last Edit by Karolina Isbell CMA on 12:05 Results Reviewed Results Reviewed: Laboratory Last Values Tst Clinic Negative 01/10/23 11:54 Patient: Hemalatha Valdez MR#: [id number] : 1975 Acct:[id number] Age/Sex: 47 / F ADM Date: 01/08/23 Loc: HO.US Attending Dr: Josey Chacon CNM Ordering Physician: Josey Chacon CNM Date of Service: 01/08/23 Procedure(s): US pelvic and transvaginal Accession Number(s): [id number] cc: Josey Cahcon CNM~ EXAMINATION:? US PELVIS CLINICAL INFORMATION:? Excessive and frequent menstruation with regular cycle LMP 11/04/2022 COMPARISON: None available. TECHNIQUE: Ultrasound of the pelvis is performed using both transabdominal and transvaginal transducers along with Doppler. Transvaginal imaging is performed due to inadequate visualization transabdominally. Limited exam due to position of uterus (tilted). Patient cannot tolerate the transvaginal exam. FINDINGS: Uterus: The uterus is anteverted and measures 9.3 x 5.0 x 5.5 cm.? No focal fibroid It is difficult to visualize the endometrium. The endometrium measures 0.7 cm. Adnexa: Both ovaries are visualized. There is normal color flow to the adnexa. There is no ovarian torsion.? There is no pelvic ascites or fluid collection. Right ovary measures 2.7 x 1.4 x 2.4 cm. 4.7 mL. Left ovary measures 2.0 x 1.2 x 1.5 cm. 1.9 mL. The left ovary is only seen transabdominally. US/US pelvic and transvaginal IMPRESSION: Normal pelvic ultrasound. Dictated By: Bárbara Edmonds MD Signed By: <Electronically signed by Bárbara Edmonds MD in [facility]> 01/09/23 0947 Assessment & Plan Assessment & Plan (1) Cervical lymphadenopathy: Code(s): R59.0 - Localized enlarged lymph nodes (2) Cervical cancer screening: Comment: 10/10/2022 Pap is negative with negative HPV. Code(s): Z12.4 - Encounter for screening for malignant neoplasm of cervix (3) Abnormal uterine bleeding (AUB): Code(s): N93.9 - Abnormal uterine and vaginal bleeding, unspecified (4) Graves disease: Code(s): E05.00 - Thyrotoxicosis with diffuse goiter without thyrotoxic crisis or storm (5) Thyroid nodule: Code(s): E04.1 - Nontoxic single thyroid nodule (6) HTN (hypertension): Code(s): I10 - Essential (primary) hypertension Qualifiers: Hypertension type: primary hypertension Qualified Code(s): I10 - Essential (primary) hypertension (7) Kidney neoplasm: Comment: See CT scans from [facility]. Code(s): D49.519 - Neoplasm of unspecified behavior of unspecified kidney Plan Patient is here for follow-up of her ultrasound and is scheduled also for an endometrial biopsy she however is in a lot of pain because she has been in the hospital the last couple of days for bursitis in her left hip. She is moving very stiffly she has also recently had an ultrasound checking on her lymph glands in her neck that was ordered by Dr. Hooker that was done the same day as pelvic ultrasound and that is going to need follow-up she has had difficulty swallowing and occasionally loses her voice she had radiation for Graves disease years ago. Additionally she was in the hospital a month ago and was brought by ambulance from [facility] to [facility] and had pain and that got worked up and she had a lesion in her kidney that is suspicious for neoplasm. She was evaluated by a physician at [facility] and there was discussion about biopsy but the concern was about the exact placement of the lesion and consequences of doing a biopsy in that particular site and concern about spread. She has follow-up scans ordered. She does not have a current appointment in her schedule with either Dr. Hooker or her primary Duglas Levine. Because she is so uncomfortable today the endometrial biopsy will be rescheduled I did review the ultrasound with her which was essentially within normal limits though she was too uncomfortable on the day that the ultrasound was done as well and could not tolerate the transvaginal portion of the ultrasound. There was no abnormal finding on the ultrasound however so this is of some assurance. We will reschedule her endometrial biopsy but I recommend also that she passed by the offices of 1 of her other care providers here while she is here today and make a follow-up appointment so that somebody can be involved with looking at the entire T of the picture of issues going on for her so that her care is not scattered. She is also going to be starting classes in substance abuse counseling, which she has experience in, at [facility]-- she is looking forward to that she does have a therapist for support and will be seeing her or him on Sunday. We will reschedule the EMB. Orders: Orders AMB HCG Urine Test Today N93.9 - Abnormal uterine and vaginal bleeding, unspecified Coding Level of Care Code Est Pt Level 3 (36326) Diagnoses Cervical lymphadenopathy R59.0 Cervical cancer screening Z12.4 Abnormal uterine bleeding (AUB) N93.9 Graves disease E05.00 Thyroid nodule E04.1 HTN (hypertension) I10 Hypertension type: primary hypertension Kidney neoplasm D49.519
== END 2023-01-10 12:49 | disposition home or self-care (01) ==
PROVIDERS: PCP Physician Assistant; Visit Provider Advanced Practice Midwife
DX: R59.0 Localized enlarged lymph nodes (principal); Z12.4 Encounter for screening for malignant neoplasm of cervix; N93.9 Abnormal uterine and vaginal bleeding, unspecified; E05.00 Thyrotoxicosis with diffuse goiter without thyrotoxic crisis or storm; E04.1 Nontoxic single thyroid nodule; I10 Essential (primary) hypertension; D49.519 Neoplasm of unspecified behavior of unspecified kidney
CPT/HCPCS: 99213

== ENCOUNTER → 2023-01-10 11:37 | Outpatient (BNVA) | payer MEDICARE, MEDICAID, SELFPAY | PROVIDERS: PCP Physician Assistant; Visit Provider Advanced Practice Midwife | DX: R59.0 Localized enlarged lymph nodes (principal); N93.9 Abnormal uterine and vaginal bleeding, unspecified; E05.00 Thyrotoxicosis with diffuse goiter without thyrotoxic crisis or storm; E04.1 Nontoxic single thyroid nodule; I10 Essential (primary) hypertension; D49.519 Neoplasm of unspecified behavior of unspecified kidney | CPT/HCPCS: 81025; 99212 ==

== ENCOUNTER 2023-03-29 15:29 | Outpatient (AMB) | payer MEDICARE, MEDICAID, SELFPAY ==
[2023-03-29 15:31] VITALS: BP 124/76; PULSE 61; BMI 29.4
--- NOTE | 2023-03-29 15:31 | MHC.OFFVIS ---
Intake Vital Signs 03/29/23 15:31 Height 5 ft 4 in Weight 171 lb 1.259 oz BMI 29.4 BP 124/76 Blood Pressure Location Lt brachial Position Sitting Pulse 61 Pulse Source Pulse Oximeter Intake Visit Reasons: Thyroid/Ohri/# OUT OF SERVICE Intake Note: Previous patient of Dr. Grijalva present today for Thyroid follow up visit. Central Supply Supervisor Required: No Accompanied by: Self / Same As Patient Allergies fentanyl Allergy (Intermediate, Verified 03/29/23 15:41) Rash morphine Allergy (Intermediate, Verified 03/29/23 15:41) Shortness of Breath Medication List - Last Reconciled 03/29/23 by Willian Romero MD amlodipine 5 mg PO DAILY blood pressure test kit-large As directed enalapril maleate 20 mg PO DAILY 30 days hydromorphone 4 mg PO Q4H PRN levothyroxine 125 mcg PO DAILY 30 days HPI HPI Comments History of Present Illness Details 47 YO Female with PMHx Grave's disease s/p I131 ablation who is seen in F/U for hypothyroidism. . The patient last saw Dr. Grijalva on 01/03/2023 She reports she was diagnosed with Grave's disease at the age of 16 and underwent I131 ablation shortly after. She subsequently developed hypothyroidism and was prescribed levothyroxine. She is currently on levothyroxine 125 mcg Dose has fluctuataed due to issues with compliance. I repeated her US myself and found her to have no true nodules, only pseudonodules. She does have some evidence of prominent reactive appearing lymph nodes bilaterally. Complains of fatigue and dysphagia. Otherwise has no complaints today. She does have a family history of thyroid disease in her Sister and Father. Thyroid US: 03/23/2022 Right Thyroid Lobe: 4.6 x 1.1 x 1.1 cm, volume 2.9 mL. Left Thyroid Lobe: 3.9 x 0.7 x 0.9 cm, volume 1.3 mL. Isthmus: 0.1 cm in maximum AP dimension. THYROID PARENCHYMA AND NODULES: The atrophied thyroid gland has heterogeneous echotexture. The gland has a hypervascular appearance on color Doppler images. Several clustered solid, noncalcified, smoothly marginated nodules are present in each thyroid lobe. A few of the nodules have been selected by the mechanical technologist for measurement, including the followin.6 x 0.5 x 0.7 cm solid, hypoechoic nodule of the right upper pole. ACR TI-RADS score of 4 points, TR4. 1 x 0.6 x 0.9 cm isoechoic nodule in the right middle lobe. ACR TI-RADS score of 3 points, TR3. 1.2 x 0.6 x 0.7 cm solid, heterogeneous, predominantly isoechoic nodule is present in the right lower pole. ACR TI-RADS score of 3 points, TR3. 0.7 x 0.5 x 0.5 cm solid hypoechoic nodule of the left upper pole. ACR TI-RADS score of 4 points, TR4. 0.8 x 0.5 x 0.6 cm isoechoic nodule with hypoechoic border is present in the left lower pole. ACR TI-RADS score of 3 points, TR3. NODES: A level 3 lymph node seen in the right neck measure 0.4 cm in short axis dimension. A level 2 lymph node is at the upper range of normal size, 0.9 cm short axis dimension, with well-preserved echogenic fatty hilum. Labs: Laboratory Tests 12/01/22 13:31 TSH 6.60 H Free T4 0.93 PFSH Medical History Cervical cancer screening Cervical lymphadenopathy section wound complication Fibromyalgia Graves disease Thyroid nodule Surgical History H/O bilateral breast reduction surgery Status post cholecystectomy Family History Mother Depression Anxiety Fibromyalgia Cataract associated with other syndromes Thyroid disorder Father Stroke (cerebrum) Thyroid disorder Family/Other Breast cancer Ovarian cancer Social History Household Members: Spouse and Children Housing: Apartment Are you a primary director of patient care to a significant other at home: No Do you presently have visiting nurse or other home services: No Alcohol intake: never Patient Tobacco Use Status: Current everyday Tobacco user Cigarettes Per Day: 7 e-Cigarette/Vaping Use: Never Used service: No Current occupational status: disabled Cognitive needs: No Hearing needs: No Vision needs: Yes (Pt will need to be refer to an eye doctor. ) Female Reproductive History Menstrual Age of Menarche: 9 Physical Exam Vital Signs: Last Vital Signs Pulse 61 03/29/23 15:31 BP 124/76 03/29/23 15:31 BMI result Body Mass Index 29.4 Const Other: Thyroid gland is decreased in size weighs about 5 g. There are no thyroid nodules palpate Assessment & Plan Assessment & Plan (1) Hypothyroid: Code(s): E03.9 - Hypothyroidism, unspecified Qualifiers: Hypothyroidism type: postablative Qualified Code(s): E89.0 - Postprocedural hypothyroidism Plan: This is a 47-year-old female with history of post-ablated hypothyroidism. She is currently being treated 125 mcg levothyroxine. She appears to be clinically euthyroid. Plan is to recheck TSH and free T4 adjust levothyroxine. (2) Cervical lymphadenopathy: Code(s): R59.0 - Localized enlarged lymph nodes Plan: She has abnormal cervical lymph nodes seen on ultrasound. Will discussed with patient either repeating neck ultrasound or sending for 2nd opinion either to Dr. Gamboa at [facility]. She is agreeing to go and have the abnormal lymph nodes evaluated Orders: Referrals Endocrinology Referral E03.9 - Hypothyroidism, unspecified, R59.0 - Localized enlarged lymph nodes Coding Level of Care Code Est Pt Level 3 (55192) Diagnoses Postablative hypothyroidism E89.0 Hypothyroidism type: postablative Cervical lymphadenopathy R59.0
== END 2023-03-29 16:09 | disposition home or self-care (01) ==
PROVIDERS: PCP Physician Assistant; Visit Provider Internal Medicine Endocrinology, Diabetes & Metabolism
DX: E89.0 Postprocedural hypothyroidism (principal); R59.0 Localized enlarged lymph nodes
CPT/HCPCS: 99213

== ENCOUNTER → 2023-03-29 15:29 | Outpatient (BNVA) | payer MEDICARE, MEDICAID, SELFPAY | PROVIDERS: PCP Physician Assistant; Visit Provider Internal Medicine Endocrinology, Diabetes & Metabolism | DX: E89.0 Postprocedural hypothyroidism (principal); R59.0 Localized enlarged lymph nodes | CPT/HCPCS: 99212 ==

== ENCOUNTER 2023-04-16 15:35 | Outpatient (AMB) | payer MEDICARE, MEDICAID, SELFPAY ==
[2023-04-16 15:36] VITALS: BP 140/100; PULSE 59; O2SAT 98; BMI 28.7
--- NOTE | 2023-04-16 15:36 | MHC.PC.OV ---
Vital Signs 04/16/23 15:36 Height 5 ft 4 in Weight 167 lb 8 oz BMI 28.7 BP 140/100 H Blood Pressure Location Lt brachial Position Sitting Pulse 59 Pulse Source Pulse Oximeter Pulse Oximetry (%) 98 Oxygen Delivery Method Room Air Intake Visit Reasons: follow up Intake Note: Pt is here routine follow up, Pt been expericing right shoulder pain for 5 months, possible tair [employer] Required: No Accompanied by: Self / Same As Patient Allergies fentanyl Allergy (Intermediate, Verified 04/16/23 16:11) Rash morphine Allergy (Intermediate, Verified 04/16/23 16:11) Shortness of Breath Medication List - Last Reconciled 04/16/23 by Duglas Levine PA-C blood pressure test kit-large As directed enalapril maleate 20 mg PO DAILY 30 days hydromorphone 4 mg PO Q4H PRN levothyroxine 125 mcg PO DAILY 30 days Tobacco use date assessed: 02/06/22 Dental Screening Dental Screen Date: 04/16/23 Did you have a dental visit in the last 12 months?: Yes Did you have a dental problem in the last 6 months where you did not have access to dental care?: No Was dental information given to patient?: Patient has dentist HPI follow up HPI Details Patient is a 48-year-old female here today for follow-up visit.. She does have a past medical history significant for hypertension, Hypothyroidism, ( Graves), , GERD, Peptic ulcer disease, tobacco dependency, opiate dependency, rheumatoid arthritis and fibromyalgia. Has not been seen here to primary care for quite a while. She does report being homeless recently and now has an apartment concerns-->Recently found to have a renal mass , has been followed by urology and oncology. No biopsy done. Reports having left shoulder pain over the 4 months. No trauma . .. HTN: Blood pressure today in office elevated.Having headaches, She reports she was on blood pressure medication the past though has not been taking any in the past few months. .. Opiate dependency: Continues on methadone for methadone clinic nearby. .. Graves: Most recent TSH slightly elevated Has had a radio ablation of her thyroid in the past, Has been having voice changes , swallowing difficulty and a fullness sensation in her neck. Has follow-up with endocrinology and noted to have cervical lymphadenopathy. Has been referred to endocrine surgeon .. RA: Patient was told she had rheumatoid arthritis and a clinical diagnosis while she was living in [place]. She would like a formal workup on her bilateral hand pain and stiffness. [facility] Medical History Cervical cancer screening Cervical lymphadenopathy section wound complication Fibromyalgia Graves disease Thyroid nodule Surgical History Status post cholecystectomy H/O bilateral breast reduction surgery Family History Mother Depression Anxiety Fibromyalgia Cataract associated with other syndromes Thyroid disorder Father Stroke (cerebrum) Thyroid disorder Family/Other Breast cancer Ovarian cancer Household Members: Spouse and Children Housing: Apartment Are you a primary care director to a significant other at home: No Do you presently have visiting nurse or other home services: No Alcohol intake: never Patient Tobacco Use Status: Current everyday Tobacco user Cigarettes Per Day: 7 e-Cigarette/Vaping Use: Never Used service: No Current occupational status: disabled Cognitive needs: No Hearing needs: No Vision needs: Yes (Pt will need to be refer to an eye doctor. ) Female Reproductive History Menstrual Age of Menarche: 9 Questionnaire PHQ-9 Over the last 2 weeks, how often have you been bothered by any of the following problems? 1. Little interest or pleasure in doing things: nearly every day 2. Feeling down, depressed, or hopeless: nearly every day 3. Trouble falling or staying asleep, or sleeping too much: nearly every day 4. Feeling tired or having little energy: nearly every day 5. Poor appetite or overeating: nearly every day 6. Feeling bad about yourself - or that you are a failure or have let yourself or your family down: nearly every day 7. Trouble concentrating on things, such as reading the newspaper or watching television: nearly every day 8. Moving or speaking so slowly that other people could have noticed. Or the opposite - being so fidgety or restless that you have been moving around a lot more than usual: several days 9. Thoughts that you would be better off or of hurting yourself in some way: not at all Total score: 22 [id number] - PHQ-9 Billing: Yes Source: Developed by Drs. Willian Diaz, Dave Ellis and colleagues, with an educational tae from [employer]. Thrive Questionnaire Date Thrive assessed: 04/16/23 I am a: Patient What is your living situation today?: I have a steady place to live Within the past 12 months, did the food you bought not last and you didn't have the money to get more?: Never true Within the past 12 months, did you worry whether your food would run out before you got money to buy more?: Never true Do you have trouble paying for medicines?: No Do you have trouble getting transportation to medical appointments?: No Do you have trouble paying your heating and electricity bill?: No Do you have trouble taking care of your child, family member or friend?: No Do you have trouble with day-to-day activities such as bathing, preparing meals, shopping, managing finances, etc.?: No Are you currently unemployed and looking for a job?: No Are you interested in more education?: No Please select the resources that you would like help with: None Currently or been in a relationship where the following occur: no concerns reported AUDIT C Alcohol Use Questionnaire (AUDIT-C) 1. How often do you have a drink containing alcohol?: Never 3. How often do you have six or more drinks on one occasion?: Never Total Score: 0 AMISHA-7 AMB Questionnaire AMISHA-7 Date AMISHA - 7 assessed: 04/16/23 Feeling nervous, anxious, or on edge: 3 = Nearly every day Not being able to stop or control worryin = Nearly every day Worrying too much about different things: 3 = Nearly every day Trouble relaxin = Several days Being so restless that it is hard to sit still: 1 = Several days Becoming easily annoyed or irritable: 1 = Several days Feeling afraid as if something awful might happen: 1 = Several days Total AMISHA-7 score (0-4 normal; 5-9 mild; 10-14 moderate; 15-21 severe): 13 Source: Developed by Christina Valverde Kurt Kroenke and colleagues, with an educational tae from [employer]. AMISHA-7 Assessment Billing AMISHA-7 Assessment Tool: AMISHA-7 Assessment 94151 Review of Systems Const Denies headache(s) Eyes Denies loss of vision ENT Denies vertigo, Denies dizziness, Denies headache(s) and Denies sore throat Card Denies chest pain, Denies leg edema and Denies lightheadedness Resp Denies cough, Denies hemoptysis and Denies wheezing GI Denies abdominal pain, Denies melena, Denies constipation, Denies diarrhea and Denies vomiting Denies urinary frequency, Denies dysuria and Denies urinary urgency Musc Details: + bilateral hand pain Reports arthralgias, Denies joint swelling, Denies numbness and Denies tingling Neuro Denies Abnormal speech present, Denies behavioral changes, Denies vertigo, Denies dizziness, Denies headache(s), Denies loss of vision, Denies memory loss, Denies numbness and Denies tingling Psych Denies anxiety, Denies behavioral changes, Denies depression, Denies memory loss and Denies panic attacks Jean/Lymph Denies easy bleeding and Denies easy bruising Aller/Immun Denies wheezing Physical exam (Primary Care) Vital Signs: Last Vital Signs Pulse 59 04/16/23 15:36 BP 140/100 H 04/16/23 15:36 Pulse Ox 98 04/16/23 15:36 Oxygen Delivery Method Room Air 04/16/23 15:36 BMI result Body Mass Index 28.7 Tobacco/Smoking Status: Tobacco use Status Tobacco use date assessed 02/06/22 04/16/23 15:38 Patient Tobacco Use Status Current everyday Tobacco 04/16/23 15:38 e-Cigarette/Vaping Use Never Used 04/16/23 15:38 PHQ-9: PHQ-9 Score PHQ-9: Total score 22 04/16/23 16:17 Thrive Assessment: Date of Thrive Assessment Date Thrive assessed 04/16/23 04/16/23 16:04 Currently or been in a relationship where the following occur: no concerns reported Const General: healthy appearing, no acute distress, alert and awake Nutritional Appearance: well nourished Orientation/consciousness: oriented to person, oriented to place and oriented to time HENMT Ears: TM's normal bilaterally General nose exam: Normal nasal mucous membranes and turbinates present Eyes Conjunctivae: conjunctivae normal Sclerae: sclerae normal Pupils: Equal, round and reactive pupils present Neck Neck: Yes no lymphadenopathy and Yes no JVD Thyroid: Thyroid normal Carotids: no bruits Resp Effort & Inspection: normal respiratory effort and not tachypneic Auscultation: no crackles, no rales, no rhonchi and no wheezes Cardio Rate: regular rate Rhythm: regular rhythm Heart sounds: no murmurs and normal S1 and S2 GI Palpation (GI): Soft to palpation, nontender, no hepatomegaly and no splenomegaly Auscultation: normal bowel sounds Skin General skin exam: no rashes or lesions noted and dry skin Neuro General: oriented to person, oriented to place and oriented to time Cranial nerves: Yes Equal, round and reactive pupils present Speech: No Abnormal speech present Gait exam (Neuro): Normal gait present Motor exam (neuro): no tremor noted Extrem Other: RIGHT SHOULDER: LIMITED RANGE OF MOTION DUE TO PAIN, NEGATIVE EMPTY CAN, NEGATIVE HERNANDEZ TEST. Left upper extremity: full ROM Right lower extremity: full ROM; no edema Left lower extremity: full ROM; no edema Psych Mental Status: mental status grossly normal Speech and movement: Normal speech and movement present Affect: normal affect Attitude: cooperative Thought process: Normal thought process present Assessment and Plan Assessment & Plan (1) Tendinopathy of right shoulder: Code(s): M67.911 - Unspecified disorder of synovium and tendon, right shoulder Plan: Reports a 4 month history of right shoulder decreased range of motion and pain. Denies any trauma to her right shoulder recently. Will get x-ray and refer to orthopedics for evaluation. (2) Polyarthritis: Code(s): M13.0 - Polyarthritis, unspecified Plan: Reports bilateral hand pain. X-rays and January of 2022 without any osteoarthritis. SNEHAL and rheumatoid factor negative. Will trial meloxicam to use on an as-needed basis (3) Graves disease: Code(s): E05.00 - Thyrotoxicosis with diffuse goiter without thyrotoxic crisis or storm Plan: Patient followed by endocrinology. Continues on levothyroxine. Most recent TSH slightly elevated. She was found to have cervical lymphadenopathy and referred for to to endocrine surgeon (4) PUD (peptic ulcer disease): Code(s): K27.9 - Peptic ulcer, site unspecified, unspecified as acute or chronic, without hemorrhage or perforation Plan: Patient does have a peptic ulcer disease, she continues on PPI therapy with decent relief. (5) HTN (hypertension): Code(s): I10 - Essential (primary) hypertension Qualifiers: Hypertension type: primary hypertension Qualified Code(s): I10 - Essential (primary) hypertension Plan: Patient's blood pressure elevated today in office. Will add on amlodipine 5 mg for better blood pressure control. Advised to continue monitoring blood pressure at home with goal blood pressure to be below 140/90 (6) Kidney neoplasm: Comment: See CT scans from [facility]. Code(s): D49.519 - Neoplasm of unspecified behavior of unspecified kidney Plan: Was followed by a Oncology for her renal neoplasm. Biopsy has been taking with benign results. Has been given hydromorphone for flank pain though reports and is not effective for (7) Opiate dependence: Code(s): F11.20 - Opioid dependence, uncomplicated Qualifiers: Substance use status: in remission Qualified Code(s): F11.21 - Opioid dependence, in remission Plan: Continues on methadone through local methadone clinic. Orders: Orders Comprehensive [place]. Panel Fast 04/16/23 I10 - Essential (primary) hypertension IRON PROFILE 04/16/23 D50.0 - Iron deficiency anemia secondary to blood loss (chronic), D50.9 - Iron deficiency anemia, unspecified PT Evaluation and Treatment 04/16/23 M67.911 - Unspecified disorder of synovium and tendon, right shoulder XR shoulder RT min 2V 04/16/23 M67.911 - Unspecified disorder of synovium and tendon, right shoulder Microalbumin, Random (w Creat) 04/16/23 I10 - Essential (primary) hypertension Lipid Panel 04/16/23 I10 - Essential (primary) hypertension Complete Blood Count no Diff 04/16/23 D50.0 - Iron deficiency anemia secondary to blood loss (chronic) Referrals Orthopedics Referral M67.911 - Unspecified disorder of synovium and tendon, right shoulder Medications: New omeprazole 20 mg PO DAILY 90 days 90 caps 1RF K27.9 - Peptic ulcer, site unspecified, unspecified as acute or chronic, without hemorrhage or perforation meloxicam 15 mg PO DAILY 15 days 15 tabs 1RF D50.0 - Iron deficiency anemia secondary to blood loss (chronic), M13.0 - Polyarthritis, unspecified amlodipine 5 mg PO DAILY 90 days 90 tabs 1RF I10 - Essential (primary) hypertension Refilled blood pressure test kit-large As directed 1 ea 0RF I10 - Essential (primary) hypertension Coding Level of Care Code Est Pt Level 4 (09835) Diagnoses Tendinopathy of right shoulder M67.911 Polyarthritis M13.0 Graves disease E05.00 PUD (peptic ulcer disease) K27.9 Primary hypertension I10 Hypertension type: primary hypertension Kidney neoplasm D49.519 Opioid dependence in remission F11.21 Substance use status: in remission Additional Codes AMISHA-7 Assessment Billing - AMISHA-7 Assessment Tool: AMISHA-7 Assessment 36716 ([id number])
== END 2023-04-16 16:40 | disposition home or self-care (01) ==
PROVIDERS: PCP Physician Assistant; Visit Provider Physician Assistant
DX: M67.911 Unspecified disorder of synovium and tendon, right shoulder (principal); M13.0 Polyarthritis, unspecified; F11.21 Opioid dependence, in remission; E05.00 Thyrotoxicosis with diffuse goiter without thyrotoxic crisis or storm; K27.9 Peptic ulcer, site unspecified, unspecified as acute or chronic, without hemorrhage or perforation; I10 Essential (primary) hypertension; D49.519 Neoplasm of unspecified behavior of unspecified kidney
CPT/HCPCS: 99214

== ENCOUNTER 2023-04-26 12:17 | Outpatient (REF) | payer MEDICARE, MEDICAID, SELFPAY | END 2023-04-26 12:18 | disposition home or self-care (01) | LOC: HO.HOSX 12:17 | PROVIDERS: Visit Provider Physician Assistant | DX: Z13.89 Encounter for screening for other disorder (principal) ==

== ENCOUNTER 2023-08-20 11:03 | Emergency (ER) | payer MEDICARE, MEDICAID, SELFPAY ==
--- NOTE | ~2023-08-20 | XR_ITS ---
EXAMINATION: XR CHEST CLINICAL INFORMATION: Cough COMPARISON: None available. TECHNIQUE: Frontal view of the chest was obtained. FINDINGS: The lungs are mildly hypoinflated. No focal consolidation is seen. No evidence of pneumothorax, pleural effusion, or pulmonary edema. The cardiomediastinal contour is unremarkable. No acute osseous findings are seen. XR/XR chest 1V IMPRESSION: Low lung volumes without acute findings.
[2023-08-20 11:32] VITALS: BP 125/77; PULSE 80; RESP 18; TEMP 36.1; O2SAT 98; BMI 31.9
--- NOTE | 2023-08-20 11:32 | ED.GENADULT ---
HPI - General Adult General Chief complaint: General Medical Stated complaint: both legs swollen from knees down Time Seen by Provider: 08/20/23 21:52 Source: patient Mode of arrival: ambulatory History of Present Illness HPI narrative: 48-year-old female arrives today with complaints about mild bilateral lower extremity swelling but denies any traumatic injury and denies any fevers or chills. Patient states that she has kidney cancer and is currently being [facility] at [facility]. Patient states that the swelling started proximally 4 days ago. Related Data Home Medications Medication Instructions Recorded Confirmed hydromorphone 4 mg tablet 4 mg PO Q4H PRN pain 01/03/23 04/16/23 Previous Rx's Medication Instructions Recorded levothyroxine 125 mcg tablet 125 mcg PO DAILY 30 days #30 tabs 01/03/23 meloxicam 15 mg tablet 15 mg PO DAILY 15 days #15 tabs 04/16/23 amlodipine 5 mg tablet 5 mg PO DAILY 90 days #90 tabs 06/21/23 blood pressure test kit-large #1 ea 06/21/23 omeprazole 20 mg capsule,delayed 20 mg PO DAILY 90 days #90 caps 06/21/23 release enalapril maleate 20 mg tablet 20 mg PO DAILY 30 days #30 tabs 08/16/23 nitrofurantoin 100 mg PO Q12H 5 days #10 caps 08/21/23 monohydrate/macrocrystals 100 mg capsule (Macrobid) Allergies Allergy/AdvReac Type Severity Reaction Status Date / Time fentanyl Allergy Intermediate Rash Verified 04/16/23 16:11 morphine Allergy Intermediate Shortness Verified 04/16/23 16:11 of Breath ibuprofen [From Motrin] AdvReac Stomach Verified 08/20/23 11:32 Upset Review of Systems Review of Systems: Pertinent positives and negatives as stated in HPI PMFSH Past Medical History Source: nursing notes reviewed Medical History Cervical lymphadenopathy Cervical cancer screening Fibromyalgia Thyroid nodule Graves disease section wound complication Surgical History Status post cholecystectomy H/O bilateral breast reduction surgery Family History Family History Mother Depression Anxiety Fibromyalgia Cataract associated with other syndromes Thyroid disorder Father Stroke (cerebrum) Thyroid disorder Family/Other Breast cancer Ovarian cancer Social History Social History Household Members: Spouse and Children Housing: Apartment Are you a primary healthcare manager to a significant other at home: No Do you presently have visiting nurse or other home services: No Alcohol intake: never Patient Tobacco Use Status: Current everyday Tobacco user Cigarettes Per Day: 7 e-Cigarette/Vaping Use: Never Used Advance Directives: No Advance Directives Information Provided: No service: No Current occupational status: disabled Cognitive needs: No Hearing needs: No Vision needs: Yes (Pt will need to be refer to an eye doctor. ) Physical Exam ED Vital Signs: Vital Signs - 24 hr 08/20/23 11:32 08/20/23 21:02 08/20/23 21:44 Temperature 97 F 99.2 F 98.5 F Pulse Rate 80 134 H 121 H Respiratory Rate 18 16 17 Blood Pressure 125/77 194/117 H 157/99 H Pulse Oximetry 98 99 98 Oxygen Delivery Method Room Air Room Air Room Air 08/20/23 22:53 08/21/23 01:08 Temperature Pulse Rate 115 H 98 Respiratory Rate 19 20 Blood Pressure 139/95 H 157/99 H Pulse Oximetry 98 97 Oxygen Delivery Method Room Air Room Air BMI result Body Mass Index 31.9 VITAL SIGNS: Reviewed. GENERAL: Well developed, well nourished, in no acute distress. HEAD: Normocephalic/atraumatic EYES: PERRLA, EOMI LUNGS: Normal breath sounds. No adventitious sounds or accessory muscle use. SpO2<98> CARDIOVASCULAR: Regular rate and rhythm without noted murmurs ABDOMEN: Soft, non-tender, non-distended with bowel sounds. MUSCULOSKELETAL: No tenderness, deformities, or effusions noted on gross inspection. EXTREMITIES: No cyanosis, clubbing or edema. BILATERAL LOWER EXTREMITIES: No abnormalities noted, no erythema/induration, trace pitting edema noted on right lower extremity. SKIN: Inspection of the skin reveals no rashes NEUROLOGIC: Alert and oriented x 4. Strength and sensation to light touch were grossly intact x 4. Course Course Course Narrative: RME performed by Gloria Mi PA-C. Patient is a 48 year old assigned female at presenting to the emergency department with bilateral lower leg warmth, swelling, and pain. Patient states that over the last 4 days her legs have been swollen, warm, and tingling. Detailed physical exam and review of systems are deferred to the coating and embossing unit operator. Labs ordered. Patient placed back in the waiting room pending room availability and results. Medications Administered Discontinued Medications Generic Name Dose Route Start Last Admin Trade Name Pradeepq PRN Reason Stop Dose Admin Magnesium Sulfate 2 gm in 50 mls @ 150 mls/hr 08/20/23 23:31 08/21/23 00:05 Magnesium Sulfate/H2o IV 08/20/23 23:50 Infused ONCE ONE Infusion Medical Decision Making Medical Decision Making MDM Narrative: 48-year-old female with self-reported history kidney cancer and has clinical presentation with subtle bilateral lower extremity edema, right greater than left,DDX: No concern for cellulitis/thrombophlebitis/DVT I reviewed all investigations and hematologic indices are negative for leukocytosis/left shift/anemia or thrombocytopenia. Chemistry indices are negative for JG/electrolyte derangements but patient is noted to have elevated transaminases without elevation of T bili or alkaline phosphatase. Urinalysis positive for bacteria and leukocyte esterase. Viral testing negative for COVID-19/influenza. Due to the observed QTC prolongation, patient received magnesium sulfate 2 g. Repeat EKG demonstrates complete resolution of QTC prolongation, urinalysis will be treated as UTI, all results and findings discussed with the patient at bedside. Differential Diagnosis Differential Diagnoses: The differential diagnosis associated with the presentation includes Please see the discussion above Admission/Observation Consideration of admission/observation: Escalation of care including admission/observation considered Please see the discussion above Lab Data [facility] Lab Attestation statement: I reviewed the patient's lab results. Please see the discussion above 08/20/23 11:43 08/20/23 11:43 Labs: Lab Results 08/20/23 08/20/23 08/20/23 Range/Units 11:43 23:15 23:24 WBC 7.8 (4.8-10.8) X10*3/uL RBC 4.37 (4.20-5.50) X10*6/uL Hgb 12.7 (12.0-16.0) g/dl Hct 38.6 (37.0-47.0) % MCV 88.3 (80.0-98.0) fL MCH 29.1 (27.0-33.0) pg MCHC 32.9 (31.0-35.0) g/dl RDW 13.9 (11.0-16.0) % Plt Count 230 (160-400) X10*3/uL MPV 9.9 (9.4-12.3) fL Immature Gran % (Auto) 0.4 (0.0-0.4) % Neut % (Auto) 60.1 (45-73) % Lymph % (Auto) 27.8 (20-40) % [place] % (Auto) 6.0 (2-11) % Eos % (Auto) 5.1 H (0-4) % Baso % (Auto) 0.6 (0-2) % Lymph # (Auto) 2.2 (1.2-4.9) X10*3/uL [place] # (Auto) 0.5 (0.1-1.2) X10*3/uL Eos # (Auto) 0.4 (0.0-0.4) X10*3/uL Baso # (Auto) 0.1 (0.0-0.2) X10*3/uL Abs Immat Gran (auto) 0.03 (0.00-0.03) X10*3/uL Absolute Neuts (auto) 4.7 (2.0-8.3) x10*3/uL Absolute Nucleated RBC 0.000 (0.0-0.012) X10*3/uL Nucleated RBC % (auto) 0.0 (0.0-0.2) /100WBC ESR 12 (0-20) MM/HR Sodium 140 (135-145) mmol/L Potassium 4.1 (3.3-5.1) mmol/L Chloride 107 (96-108) mmol/L Carbon Dioxide 27 (22-29) mmol/L Anion Gap 10 L (12-20) BUN 20 H (9-16) mg/dL Creatinine 0.75 (0.5-1.4) mg/dL Estim Creat Clear Calc 94.3 Estimated GFR > 60 Random Glucose 111 (60-115) mg/dL Calcium 9.6 (8.4-10.2) mg/dL Magnesium 2.0 (1.6-2.6) mg/dL Total Bilirubin 0.6 (0.0-1.0) mg/dL AST 187 H (5-31) U/L ALT 162 H (0-31) U/L Alkaline Phosphatase 106 (39-117) U/L C-Reactive Protein 0.65 H (< or = 0.50) mg/dL Total Protein 6.7 (6.5-8.0) g/dL Albumin 3.9 (3.5-5.0) g/dL Urine Color Yellow Urine Appearance Clear Urine pH 6.5 (5.0-9.0) Ur Specific [place] 1.015 (1.005-1.025) Urine Protein Trace (Neg-Trace) mg/dL Urine Glucose (UA) Negative (Negative) mg/dL Urine Ketones Negative (Negative) mg/dL Urine Blood Trace H (Negative) Urine Nitrite Negative (Negative) Ur Leukocyte Esterase Trace H (Negative) Urine RBC 3-5 H (0-2) /HPF Urine WBC 0-5 (0-5) /HPF Ur Squamous Epith Cells 0-2 (0-2) /HPF Urine Bacteria 2+ (None Seen) Hyaline Casts 0-2 (0-2) /LPF COVID-19 ([place]FF[place]) Negative (Negative) COVID-19 Clin Com See Note Influenza Type A (KUN) Negative (Negative) Influenza Type B (KUN) Negative (Negative) Influenza A & B Note See Note Independent Interpretation I performed an independent interpretation of an: EKG Interpretation: Sinus tachycardia, HR-119, no STEMI, MI/QRS are within normal limits and QTC is prolonged-[id number]: Sinus rhythm, HR-95, no STEMI, MI/QRS/QTC is within normal limits. Radiology Impression Discussion of test interpretation with radiology: I have reviewed the radiologist's reading. Radiologist Impression: Please see the discussion above External Record Review External record reviewed: Outpatient record, Prior outpatient labs and Prior outpatient radiology Chronic Conditions Patient?s care impacted by: Hypertension Critical Care Time Critical Care Time Critical Care Time: Yes Total Critical Care Time: 30 Attestation: I personally attest to this time spent taking care of the patient. Discharge Plan Discharge Clinical Impression: Venous insufficiency, Urinary tract infection, Prolonged QT interval Patient Disposition: Home, Self-Care Instructions: Urinary Tract Infection in Women (ED), Venous Insufficiency (DC) Additional Instructions: 1. Resume all home medications as prescribed. 2. Complete the entire course of antibiotics as prescribed. 3. Follow-up with your primary care doctor in the next 1-2 days. Return to the ER for any worsening symptoms. Prescriptions: New nitrofurantoin monohyd/m-cryst [Macrobid] 100 mg capsule 100 mg PO Q12H 5 Days Qty: 10 0RF Rx Instructions: must administer with a meal/food No Action amlodipine 5 mg tablet 5 mg PO DAILY 90 Days Qty: 90 1RF (DME) blood pressure test kit-large Kit See Rx Instructions .Route Qty: 1 0RF Rx Instructions: As directed omeprazole 20 mg capsule,delayed release(DR/EC) 20 mg PO DAILY 90 Days Qty: 90 1RF enalapril maleate 20 mg tablet 20 mg PO DAILY 30 Days Qty: 30 3RF meloxicam 15 mg tablet 15 mg PO DAILY 15 Days Qty: 15 1RF hydromorphone 4 mg tablet 4 mg PO Q4H PRN (Reason: pain) levothyroxine 125 mcg tablet 125 mcg PO DAILY 30 Days Qty: 30 3RF Referrals: Duglas Levine PA-C [Primary Care Provider] -
[2023-08-20 11:49] LABS: MANUAL DIFF FLAG NO
[2023-08-20 11:52] LABS: Basophils Absolute Auto 0.1 X10*3/uL (0.0-0.2); Basophils Percent Auto 0.6 % (0-2); Eosinophils Absolute Auto 0.4 X10*3/uL (0.0-0.4); Eosinophils Percent Auto 5.1 % (0-4); Hematocrit 38.6 % (37.0-47.0); Hemoglobin 12.7 g/dl (12.0-16.0); Imm Gran Abs Auto 0.03 X10*3/uL (0.00-0.03); Imm Gran Pct Auto 0.4 % (0.0-0.4); Lymphocytes Absolute Auto 2.2 X10*3/uL (1.2-4.9); Lymphocytes Percent Auto 27.8 % (20-40); Mean Corpuscular HGB Conc 32.9 g/dl (31.0-35.0); Mean Corpuscular Hemoglobin 29.1 pg (27.0-33.0); Mean Corpuscular Volume 88.3 fL (80.0-98.0); Mean Platelet Volume 9.9 fL (9.4-12.3); Monocytes Absolute Auto 0.5 X10*3/uL (0.1-1.2); Neutrophils Absolute Auto 4.7 x10*3/uL (2.0-8.3); Neutrophils Percent Auto 60.1 % (45-73); Platelet Count 230 X10*3/uL (160-400); Red Blood Count 4.37 X10*6/uL (4.20-5.50); Red Cell Distribution Width 13.9 % (11.0-16.0); White Blood Count 7.8 X10*3/uL (4.8-10.8)
[2023-08-20 12:08] LABS: Alanine Aminotransferase 162 U/L (0-31); Albumin Level 3.9 g/dL (3.5-5.0); Alkaline Phosphatase 106 U/L (39-117); Anion Gap 10 (12-20); Aspartate Amino Transferase 187 U/L (5-31); Bilirubin Total 0.6 mg/dL (0.0-1.0); Blood Urea Nitrogen 20 mg/dL (9-16); C Reactive Protein 0.65 mg/dL (< or = 0.50); Calcium 9.6 mg/dL (8.4-10.2); Carbon Dioxide 27 mmol/L (22-29); Chloride 107 mmol/L (96-108); Creatinine Clr Calc Pharmacy 94.3; Estimated Glomerular Filt Rate > 60; Glucose Random 111 mg/dL (60-115); Potassium 4.1 mmol/L (3.3-5.1); Sodium 140 mmol/L (135-145); Total Protein 6.7 g/dL (6.5-8.0)
[2023-08-20 12:32] LABS: Erythrocyte Sedimentation Rate 12 MM/HR (0-20)
[2023-08-20 21:02] VITALS: BP 194/117; PULSE 134; RESP 16; TEMP 37.3; O2SAT 99
--- NOTE | 2023-08-20 21:05 | ECG_ITS ---
Test Reason : SINUS TACH Blood Pressure : / mmHG Vent. Rate : 119 BPM Atrial Rate : 119 BPM P-R Int : 104 ms QRS Dur : 094 ms QT Int : 440 ms P-R-T Axes : 000 013 037 degrees QTc Int : 618 ms Sinus tachycardia with short MT Prolonged QT Abnormal ECG No previous ECGs available Referred By: Generic ED Physician Electronically Signed By:Beck Schneider
--- NOTE | 2023-08-20 21:11 | MHC.EDTECH ---
BUSINESS PROCESS ENGINEER,FRED KULKARNI CALLED FOR UPDATE. PHONE # [phone]. PROGRAM # [phone]
[2023-08-20 21:44] VITALS: BP 157/99; PULSE 121; RESP 17; TEMP 36.9; O2SAT 98
[2023-08-20 22:53] VITALS: BP 139/95; PULSE 115; RESP 19; O2SAT 98
[2023-08-20] MEDS: Magnesium Sulfate/H2O 2 GM/50 ML PIGGYBACK IV (23:36)
[2023-08-20 23:37] LABS: Appearance Urine Clear; Color Urine Yellow; Glucose Urine UA Negative (Negative); Leukocyte Esterase Urine Trace (Negative); Nitrite Urine Negative (Negative); PH 6.5 (5.0-9.0); Specific Gravity - Urine 1.015 (1.005-1.025); UMIC TRIGGER UACC YES; Urine Blood Trace (Negative); Urine Ketones Negative (Negative); Urine Protein Trace mg/dL (Neg-Trace)
[2023-08-20 23:43] LABS: Bacteria Urine 2+ (None Seen); Hyaline Casts Urine 0-2 /LPF (0-2); Squamous Epithelial Cell Urine 0-2 /HPF (0-2); WBC Urine 0-5 /HPF (0-5)
[2023-08-20 23:50] LABS: COVID-19 Test Negative (Negative); IDNOW Serial# 08D9AD1C; IDNOW Serial# 152EDE1D; Influenza A Negative (Negative); Influenza B2 Negative (Negative)
--- NOTE | 2023-08-21 00:46 | ECG_ITS ---
Test Reason : PROLONGED QTC Blood Pressure : / mmHG Vent. Rate : 095 BPM Atrial Rate : 095 BPM P-R Int : 170 ms QRS Dur : 092 ms QT Int : 350 ms P-R-T Axes : 046 009 016 degrees QTc Int : 439 ms Normal sinus rhythm Normal ECG When compared with ECG of 20-AUG-2023 21:13, OR interval has increased T wave inversion less evident in Inferior leads Nonspecific T wave abnormality has replaced inverted T waves in Lateral leads Referred By: Bárbara Pantoja Electronically Signed By:Beck Schneider
[2023-08-21 01:08] VITALS: BP 157/99; PULSE 98; RESP 20; O2SAT 97
[2023-08-21 01:56] VITALS: BP 157/99; PULSE 98; RESP 20; TEMP 36.6; O2SAT 98
== END 2023-08-21 01:57 | disposition home or self-care (01) ==
PROVIDERS: Physician Assistant Medical; Emergency Provider Student in an Organized Health Care Education/Training Program; PCP Physician Assistant
DX: I87.2 Venous insufficiency (chronic) (peripheral) (principal); N39.0 Urinary tract infection, site not specified; R94.31 Abnormal electrocardiogram [ECG] [EKG]; Z11.52 Encounter for screening for COVID-19
CPT/HCPCS: 36415; 71045; 80053; 81001; 83735; 85025; 85652; 86140; 87502; 87635; 93005; 96365; 99284; J3475

== ENCOUNTER → 2023-08-20 21:05 | Outpatient (BNV) | payer MEDICARE, MEDICAID, SELFPAY | PROVIDERS: Emergency Provider Student in an Organized Health Care Education/Training Program; PCP Physician Assistant; Visit Provider Internal Medicine Cardiovascular Disease | DX: R94.31 Abnormal electrocardiogram [ECG] [EKG] (principal) | CPT/HCPCS: 93010 ==

== ENCOUNTER → 2023-08-21 00:46 | Outpatient (BNV) | payer MEDICARE, MEDICAID, SELFPAY | PROVIDERS: Emergency Provider Student in an Organized Health Care Education/Training Program; PCP Physician Assistant; Visit Provider Internal Medicine Cardiovascular Disease | DX: I45.81 Long QT syndrome (principal) | CPT/HCPCS: 93010 ==

== ENCOUNTER 2023-08-28 11:43 | Outpatient (AMB) | payer MEDICARE, MEDICAID, SELFPAY ==
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
[2023-08-28 11:49] VITALS: BP 118/70; PULSE 90; RESP 17; O2SAT 98; BMI 30.2
== END 2023-08-28 12:20 | disposition home or self-care (01) ==
PROVIDERS: PCP Physician Assistant; Visit Provider Physician Assistant
DX: I10 Essential (primary) hypertension (principal); F11.21 Opioid dependence, in remission; F33.1 Major depressive disorder, recurrent, moderate; E05.00 Thyrotoxicosis with diffuse goiter without thyrotoxic crisis or storm; F17.200 Nicotine dependence, unspecified, uncomplicated; D49.519 Neoplasm of unspecified behavior of unspecified kidney; R79.89 Other specified abnormal findings of blood chemistry; F41.1 Generalized anxiety disorder
CPT/HCPCS: 99214

== ENCOUNTER 2023-08-28 12:28 | Outpatient (REF) | payer MEDICARE, MEDICAID, SELFPAY ==
[2023-08-28 13:19] LABS: Hematocrit 42.4 % (37.0-47.0); Hemoglobin 13.6 g/dl (12.0-16.0); Mean Corpuscular HGB Conc 32.1 g/dl (31.0-35.0); Mean Corpuscular Hemoglobin 28.3 pg (27.0-33.0); Mean Corpuscular Volume 88.3 fL (80.0-98.0); Mean Platelet Volume 9.7 fL (9.4-12.3); Platelet Count 275 X10*3/uL (160-400); Red Cell Distribution Width 13.8 % (11.0-16.0); White Blood Count 10.5 X10*3/uL (4.8-10.8)
[2023-08-28 14:01] LABS: Alanine Aminotransferase 227 U/L (0-31); Albumin Level 4.5 g/dL (3.5-5.0); Alkaline Phosphatase 123 U/L (39-117); Anion Gap 9 (12-20); Aspartate Amino Transferase 366 U/L (5-31); Bilirubin Total 0.9 mg/dL (0.0-1.0); Blood Urea Nitrogen 15 mg/dL (9-16); Calcium 10.2 mg/dL (8.4-10.2); Carbon Dioxide 32 mmol/L (22-29); Chloride 105 mmol/L (96-108); Cholesterol 220 mg/dL (<200); Estimated Glomerular Filt Rate > 60; Glucose Fasting 95 mg/dL (60-99); HDL Cholesterol 68 mg/dL (>40); Iron 123 mcg/dL (30-160); LDL Cholesterol Calculated 138 mg/dL (<100); Percent Iron Saturation 33 % (15-50); Potassium 3.9 mmol/L (3.3-5.1); Sodium 142 mmol/L (135-145); Total Iron Binding Capacity 374 mcg/dL (228-428); Total Protein 7.7 g/dL (6.5-8.0); Triglycerides 71 mg/dL (<150); Unsaturated Iron Binding 251 ug/dL
[2023-08-28 14:12] LABS: TSH reflex Free T4 1.05 uIU/mL (0.32-4.0); Thyroid Stimulating Hormone 1.05 uIU/mL (0.32-4.0)
[2023-08-28 14:13] LABS: Free T4 (Free Thyroxine) 1.37 ng/dL (0.71-1.85)
[2023-08-28 14:19] LABS: Free T4 (Free Thyroxine) 1.34 ng/dL (0.71-1.85); Thyroid Stimulating Hormone 1.04 uIU/mL (0.32-4.0)
== END 2023-08-28 12:29 | disposition home or self-care (01) ==
LOC: HO.LAB 12:28
PROVIDERS: Absent Provider Physician Assistant; PCP Physician Assistant; Visit Provider Internal Medicine
DX: I10 Essential (primary) hypertension (principal); E05.00 Thyrotoxicosis with diffuse goiter without thyrotoxic crisis or storm; E89.0 Postprocedural hypothyroidism; D50.0 Iron deficiency anemia secondary to blood loss (chronic)
CPT/HCPCS: 36415; 80053; 80061; 83540; 84439; 84443; 85027

== ENCOUNTER 2023-09-14 08:35 | Outpatient (REF) | payer MEDICARE, MEDICAID, SELFPAY ==
--- NOTE | ~2023-09-14 | US_ITS ---
EXAMINATION: US ABDOMEN LIMITED CLINICAL INFORMATION: Other specified abnormal findings of blood chemistry. Elevated LFTs. Evaluate liver for liver cyst versus fatty liver. Per respiratory services manager, patient states history of renal cancer. COMPARISON: None available. TECHNIQUE: Real-time imaging of the right upper quadrant abdominal viscera. Limited visualization due to bowel gas. FINDINGS: PANCREAS: Limited visualization of the pancreatic head, tail and portions of the body. Imaged portion of the pancreatic body is heterogeneous in echotexture. LIVER: Increased hepatic parenchymal heterogeneity and echogenicity could be associated with hepatocellular disease/hepatic steatosis and substantially limits visualization. Substantially limited visualization of the left hepatic lobe, in particular due to bowel gas. GALLBLADDER: Surgically absent. COMMON BILE DUCT: Normal in caliber measuring 0.7 cm in diameter. RIGHT KIDNEY: No hydronephrosis. No renal calculi. Limited visualization. The kidney measures 11.2 cm in maximum dimension. FREE FLUID: None. US/US abdomen limited IMPRESSION: 1. Imaged portion of the pancreatic body is heterogeneous in echotexture. Increased hepatic parenchymal heterogeneity and echogenicity could be associated with hepatocellular disease/hepatic steatosis and substantially limits visualization. Substantially limited visualization of the left hepatic lobe in particular due to bowel gas. Gallbladder surgically absent. 2. Correlation with clinical exam and laboratory tests recommended to determine further management.
== END 2023-09-14 08:36 | disposition home or self-care (01) ==
LOC: HO.US 08:35
PROVIDERS: PCP Physician Assistant; Visit Provider Physician Assistant
DX: R79.89 Other specified abnormal findings of blood chemistry (principal)
CPT/HCPCS: 76705

== ENCOUNTER 2023-10-02 17:05 | Emergency (ER) | payer MEDICARE, MEDICAID, SELFPAY ==
--- NOTE | ~2023-10-02 | XR_ITS ---
EXAMINATION: XR CHEST CLINICAL INFORMATION: Chest pain and shortness of breath. COMPARISON: Chest radiograph 08/21/2023. TECHNIQUE: Frontal view of the chest was obtained. FINDINGS: Low volumes with bronchovascular crowding and mild bibasilar subsegmental atelectasis. No focal consolidation, pleural effusion or pneumothorax. Stable appearance of the cardiomediastinal silhouette. No acute osseous findings. XR/XR chest 1V IMPRESSION: Low lung volumes with bronchovascular crowding and mild bibasilar subsegmental atelectasis.
--- NOTE | 2023-10-02 17:25 | ECG_ITS ---
Test Reason : CHEST PAIN Blood Pressure : / mmHG Vent. Rate : 062 BPM Atrial Rate : 062 BPM P-R Int : 144 ms QRS Dur : 088 ms QT Int : 422 ms P-R-T Axes : 040 003 020 degrees QTc Int : 428 ms Normal sinus rhythm Minimal voltage criteria for LVH, may be normal variant ( R in aVL ) Possible Inferior infarct , age undetermined Abnormal ECG When compared with ECG of 21-AUG-2023 00:56, Vent. rate has decreased BY 33 BPM Referred By: Generic ED Physician Electronically Signed By:Beck Schneider
[2023-10-02 17:39] VITALS: BP 136/82; BP 150/84; PULSE 68; PULSE 80; RESP 18; TEMP 36.6; O2SAT 95; O2SAT 98
--- NOTE | 2023-10-02 17:48 | ED.GENADULT ---
HPI - General Adult General Chief complaint: Chest Pain Stated complaint: 12/04 chest pain,sob,htn Time Seen by Provider: 10/02/23 17:39 Source: patient and EMS Mode of arrival: EMS Limitations: no limitations History of Present Illness HPI narrative: Patient comes to the emergency room complaining of 7 hours of chest pain. [facility] Patient states that the pain is on the left side of the chest and radiates towards the shoulder and into the back. Patient admits to using for pain for 2 days ago. Patient was recently seen here for lower extremity edema. Patient denies any changes. Patient denies taking Lasix. EMS gave the patient in the ambulance 325 mg of aspirin Related Data Home Medications ?Medication ?Instructions ?Recorded ?Confirmed hydromorphone 4 mg tablet 4 mg PO Q4H PRN pain 01/03/23 08/28/23 Previous Rx's ?Medication ?Instructions ?Recorded blood pressure test kit-large #1 ea 06/21/23 levothyroxine 125 mcg tablet 125 mcg PO DAILY 30 days #30 tabs 08/28/23 amlodipine 5 mg tablet 5 mg PO DAILY 90 days #90 tabs 08/29/23 clonidine HCl 0.1 mg tablet 0.1 mg PO TID 30 days #90 tabs 09/06/23 lisinopril 20 mg tablet 20 mg PO DAILY 30 days #30 tabs 09/06/23 omeprazole 20 mg capsule,delayed 20 mg PO DAILY 90 days #90 caps 09/21/23 release hydroxyzine HCl 25 mg tablet 25 mg PO BID PRN anxiety 30 days 09/24/23 #60 tabs cyclobenzaprine 5 mg tablet 5 mg PO TID PRN muscle spasm #10 10/02/23 tabs furosemide 40 mg tablet (Lasix) 40 mg PO DAILY #5 tabs 10/02/23 Allergies Allergy/AdvReac Type Severity Reaction Status Date / Time fentanyl Allergy Intermediate Rash Verified 10/02/23 17:47 morphine Allergy Intermediate Shortness Verified 10/02/23 17:47 of Breath ibuprofen [From Motrin] AdvReac Stomach Verified 10/02/23 17:47 Upset Review of Systems Review of Systems: Constitutional : No Weight loss, No Fever, No Chills, No Night Sweats, No Fatigue, No Malaise ENT/Mouth : No Hearing loss, No Ear Pain, No Nasal Congestion, No Sinus Pain, No Hoarseness, No sore throat, No Rhinorrhea, No Swallowing Difficulty Eyes: No Eye Pain, No Swelling, No Redness, No Foreign Body, No Discharge, No Vision Changes Cardiovascular : Complaining of 7 hours of chest pain and SOB, No Dyspnea on Exertion, No Orthopnea, No Edema, No Palpitations Respiratory : No Cough, No Sputum, No Wheezing, No Smoke Exposure, No Dyspnea Gastrointestinal : No Nausea, No Vomiting, No Diarrhea, No Constipation, No abdominal Pain, No Hematochezia, No Melena Genitourinary : no irregular bleeding, No Dysuria, No Urinary Frequency, No Hematuria, No Urinary Incontinence, No Urgency, No Flank Pain, No Urinary Flow Changes, No Hesitancy Musculoskeletal : No joint pain, No Myalgias, No Joint Swelling Skin : No Skin Lesions, No rash Neuro : No Weakness, No Numbness, No Paresthesias, No Loss of Consciousness, No Dizziness, No Headache Psych : No Anxiety/Panic, No Depression, No SI/HI/AH/VH, admits using cocaine Heme/Lymph: No Bruising, No Bleeding,No Lymphadenopathy Endocrine : No Polyuria, No Polydipsia, No Temperature Intolerance PMFSH Past Medical History Medical History Cervical lymphadenopathy Cervical cancer screening Fibromyalgia Thyroid nodule Graves disease section wound complication Surgical History Status post cholecystectomy H/O bilateral breast reduction surgery Family History Family History Mother Depression Anxiety Fibromyalgia Cataract associated with other syndromes Thyroid disorder Father Stroke (cerebrum) Thyroid disorder Family/Other Breast cancer Ovarian cancer Social History Social History Household Members: Spouse and Children Housing: Apartment Are you a primary home care specialist to a significant other at home: No Do you presently have visiting nurse or other home services: No Alcohol intake: never Patient Tobacco Use Status: Current everyday Tobacco user Cigarettes Per Day: 7 Smoked in Last 30 Days: Yes e-Cigarette/Vaping Use: Never Used Substance Use Type: Crack/Cocaine Substance Use Frequency: Occasionally Last Used Substance: Days (ago) Any prior treatment program specific to substance use: No Advance Directives: No Advance Directives Information Provided: Yes Do you have a plan to hurt others: No Plan service: No Current occupational status: disabled Cognitive needs: No Hearing needs: No Vision needs: Yes (Pt will need to be refer to an eye doctor. ) Physical Exam ED Vital Signs: Vital Signs - 24 hr 10/02/23 17:39 10/02/23 19:34 Temperature 98 F 97.5 F Pulse Rate 68 71 Respiratory Rate 18 24 H Blood Pressure 150/84 H 166/98 H Pulse Oximetry 98 97 Oxygen Delivery Method Room Air Room Air BMI result Body Mass Index 30.0 Const Other: Appearance: Alert. Oriented X3. No acute distress. Eyes: Pupils equal, round and reactive to light. ENT: Pharynx normal. Neck: Normal inspection. Neck supple. No lymph nodes noted. No crepitus CVS: Normal heart rate and rhythm. Pulses normal. Normal S1 and S2, reproducible chest pain to palpation on the left side of the chest and shoulder Respiratory: No respiratory distress. Breath sounds normal. No Wheezing. No rales Abdomen: Soft and nontender. No rigidity. No distention. Skin: Skin warm and dry. Normal skin color. Normal skin turgor. Extremities: No lower extremity edema. No Lacerations. No Rash Neuro: Oriented X 3. No motor deficit. No sensory deficit. Moving all extremities. No slurred speech. CN 2 through 12 grossly intact Psych: calm, cooperative, normal affect Course Course Course Narrative: -all of patient's labs and imaging pending -patient already received full dose of aspirin Medications Administered Discontinued Medications Generic Name Dose Route Start Last Admin Trade Name Debi PRN Reason Stop Dose Admin Aspirin 325 mg 10/02/23 17:47 10/02/23 17:50 Aspirin Enteric Coated 325 Mg Tablet.Dr WILLARD 10/02/23 17:48 Not Given ONCE ONE Medical Decision Making Medical Decision Making MDM Narrative: -my interpretation of EKG: Normal sinus rhythm, heart rate 62, no ST segment depression or elevation, no T-wave inversion, QTC 428 -my interpretation of labs, normal hematology and chemistry, troponin is negative, BNP slightly bumped at 01:09. Urine positive for methadone, oxycodone, opiates. Patient states that the last time she used cocaine was about 3 days ago. -my interpretation of chest x-ray: No obvious abnormality. No pleural effusions. -for the lower extremity edema, patient will be sent home with Lasix Differential Diagnosis Differential Diagnoses: The differential diagnosis associated with the presentation includes (Coronary vasospasm, ACS, musculoskeletal pain.) Admission/Observation Consideration of admission/observation: Escalation of care including admission/observation considered (Concerning patient's history and presentation, observation was considered) Lab Data MDM Lab Attestation statement: I reviewed the patient's lab results. 10/02/23 18:51 10/02/23 18:51 Labs: Lab Results 10/02/23 10/02/23 Range/Units 18:51 19:59 WBC 7.7 (4.8-10.8) X10*3/uL RBC 4.42 (4.20-5.50) X10*6/uL Hgb 12.4 (12.0-16.0) g/dl Hct 39.1 (37.0-47.0) % MCV 88.5 (80.0-98.0) fL MCH 28.1 (27.0-33.0) pg MCHC 31.7 (31.0-35.0) g/dl RDW 13.8 (11.0-16.0) % Plt Count 207 (160-400) X10*3/uL MPV 9.8 (9.4-12.3) fL Immature Gran % (Auto) 0.1 (0.0-0.4) % Neut % (Auto) 46.0 (45-73) % Lymph % (Auto) 42.3 H (20-40) % [place] % (Auto) 7.2 (2-11) % Eos % (Auto) 4.1 H (0-4) % Baso % (Auto) 0.3 (0-2) % Lymph # (Auto) 3.3 (1.2-4.9) X10*3/uL [place] # (Auto) 0.6 (0.1-1.2) X10*3/uL Eos # (Auto) 0.3 (0.0-0.4) X10*3/uL Baso # (Auto) 0.0 (0.0-0.2) X10*3/uL Abs Immat Gran (auto) 0.01 (0.00-0.03) X10*3/uL Absolute Neuts (auto) 3.6 (2.0-8.3) x10*3/uL Absolute Nucleated RBC 0.000 (0.0-0.012) X10*3/uL Nucleated RBC % (auto) 0.0 (0.0-0.2) /100WBC Hold Purple Top Cancelled PT 10.7 L (11.1-13.3) SEC INR 0.9 (0.9-1.1) Sodium 142 (135-145) mmol/L Potassium 3.9 (3.3-5.1) mmol/L Chloride 106 (96-108) mmol/L Carbon Dioxide 28 (22-29) mmol/L Anion Gap 12 (12-20) BUN 11 (9-16) mg/dL Creatinine 0.77 (0.5-1.4) mg/dL Estim Creat Clear Calc 89.1 Estimated GFR > 60 Random Glucose 84 (60-115) mg/dL Calcium 10.0 (8.4-10.2) mg/dL Magnesium 2.0 (1.6-2.6) mg/dL Total Bilirubin 0.2 (0.0-1.0) mg/dL Direct Bilirubin < 0.2 (0.0-0.5) mg/dL AST 15 (5-31) U/L ALT 12 (0-31) U/L Alkaline Phosphatase 73 (39-117) U/L Troponin I High Sens < 2.7 (<3.5-17.0) ng/L B-Natriuretic Peptide 109 H (<100) pg/mL Total Protein 6.3 L (6.5-8.0) g/dL Albumin 3.8 (3.5-5.0) g/dL Urine Opiates Screen POSITIVE H (Not Detect) Ur Buprenorphine Scrn Not Detected (Not Detect) ng/mL Ur Oxycodone Screen Positive H (Not Detect) ng/mL Urine Methadone Screen Positive H (Not Detect) ng/mL Urine Fentanyl Screen Not Detected (Not Detect) Ur Barbiturates Screen Not Detected (Not Detect) Ur Phencyclidine Scrn Not Detected (Not Detect) Ur Amphetamines Screen Not Detected (Not Detect) U Benzodiazepines Scrn Not Detected (Not Detect) Urine Cocaine Screen Not Detected (Not Detect) U Marijuana (THC) Screen Not Detected (Not Detect) Ethyl Alcohol < 10 mg/dL Independent Interpretation I performed an independent interpretation of an: Plain X-Ray Radiology Impression Discussion of test interpretation with radiology: I have reviewed the radiologist's reading. Radiologist Impression: Low volumes with bronchovascular crowding and mild bibasilar subsegmental atelectasis. No focal consolidation, pleural effusion or pneumothorax. Stable appearance of the cardiomediastinal silhouette. No acute osseous findings. XR/XR chest 1V IMPRESSION: Low lung volumes with bronchovascular crowding and mild bibasilar subsegmental atelectasis. Critical Care Time Critical Care Time Critical Care Time: Yes Total Critical Care Time: 60 Attestation: I have personally provided critical care time. Time includes review of lab data, radiology results, discussion with consultants, and monitoring for potential decompensation. Intervention performed as documented. Discharge Plan Discharge Clinical Impression: Atypical chest pain Patient Disposition: Home, Self-Care Instructions: Chest Pain (ED) Additional Instructions: Please follow-up with your primary care physician tomorrow. If you have any worsening or new symptoms, please return to the emergency room or call 911 Prescriptions: New cyclobenzaprine 5 mg tablet 5 mg PO TID PRN (Reason: muscle spasm) Qty: 10 0RF furosemide [Lasix] 40 mg tablet 40 mg PO DAILY Qty: 5 0RF No Action (DME) blood pressure test kit-large Kit See Rx Instructions .Route Qty: 1 0RF Rx Instructions: As directed amlodipine 5 mg tablet 5 mg PO DAILY 90 Days Qty: 90 1RF lisinopril 20 mg tablet 20 mg PO DAILY 30 Days Qty: 30 1RF clonidine HCl 0.1 mg tablet 0.1 mg PO TID 30 Days Qty: 90 1RF omeprazole 20 mg capsule,delayed release(DR/EC) 20 mg PO DAILY 90 Days Qty: 90 1RF hydroxyzine HCl 25 mg tablet 25 mg PO BID PRN (Reason: anxiety) 30 Days Qty: 60 3RF levothyroxine 125 mcg tablet 125 mcg PO DAILY 30 Days Qty: 30 3RF hydromorphone 4 mg tablet 4 mg PO Q4H PRN (Reason: pain) Print Language: Bulgarian
--- OUTSIDE RECORDS SUMMARY | 2023-10-02 18:11 | XMS_ITS | Continuity of Care Document ---
Author Organization [facility] ter Address [address] [place] [id number]- Care Team Providers Care Signal Worker Name Role Phone Not on Staff, PCP Primary Care Physician Unavail able Encounter [facility] Date(s): 03/15/23 - 05/25/[address] [id number] Attending Physician: Marko Myrick MD Admitting Physician: Marko Myrick MD Referring Physician: Marko Myrick MD Allergies, Adverse Reactions, Alerts Substance Reaction Severity Status ibuprofen Erosive gastritis Active buPROPion Seizure Active fentanyl Headache Persistent Moderate Active morphine Palpitations Stomach ache Nausea Chest tightness Persistent Mild Active Topamax Drowsy Leg swelling Depression Hallucinations Persistent Moderate Active Immunizations Given and Recorded Vaccine Date Status Refusal Reason pneumococcal 23-valent vaccine 01/04/18 Given tetanus/diphtheria/pertussis, acel(Tdap) 1 04/26/15 Given influenza virus vaccine, inactivated 2 03/25/12 Gi anayeli hepatitis B adult vaccine 3 03/25/12 Given hepatitis B adult vaccine 4 09/25/11 Given hepatitis B adult vaccine 5 02/21/10 Given tetanus-diphtheria toxoids (Td) 6 12/27/07 Given 1Result Comment: [04/26/2015] ORDERED BY DR. BRUMFIELD 2Admin Note: VIS 11/27/11 GIVEN 3Admin Note: VIS 12/12/06 GIVEN 4Admin Note: VIS 12/12/06 GIVEN 5Admin Note: VIS 12/12/06 GIVEN 6Admin Note: VIS 11/04/93 ADM BY LUIS Levy RN Medications Carafate 1 gm oral tablet 1 Gm, 1, tablet, By Mouth, 2 times a day, PRN, on an empty stomach. covering for pcp, # 60 tablet, Refills 0, Tot. Refills 0, Maintenance, as needed for upset stomach, 02/07/18 19:30:20 EDT, Route toPharmacy Electronically, [id number]... Start Date: 02/07/18 Stop Date: 03/09/18 Status: Ordered Colace sodium 100 mg oral capsule 100 mg, 1, capsule, By Mouth, 2 times a day, PRN, # 60 capsule, Refills 0, Tot. Refills 0, Maintenance, for constipation, 11/13/17 9:52:39 EDT, Route to Pharmacy Electronically, [id number], [facility]/pharmacy #[id number] Start Date: 11/13/17 Status: Ordered Dexilant 60 mg oral delayed release capsule 1 capsule = 60 mg, By Mouth, Daily, 30 mins before breakfast, # 30 capsule, 11 Refills, Maintenance, 03/22/18 14:23:29 EDT Start Date: 03/22/18 Status: Ordered enalapril 20 mg oral tablet 2 tablet = 40 mg, By Mouth, Daily, increased dose; 90 days, # 180 tablet, 3 Refills, Maintenance, 03/28/17 12:25:03, Tablet Start Date: 03/28/17 Status: Ordered heating pad heating pad, See Instructions, # 1 each, Refills 0, Tot. Refills 0, Maintenance, use as needed dx s/p cholecystectomy, 11/13/17 10:03:06 EDT, Compound Start Date: 11/13/17 Status: Ordered hydrALAZINE 50 mg oral tablet 1 tablet = 50 mg, By Mouth, 3 times a day, # 270 tablet, 3 Refills, Maintenance, 01/03/18 13:28:48 EDT, Tablet Start Date: 01/03/18 Stop Date: 12/29/18 Status: Ordered levothyroxine 150 mcg (0.15 mg) oral tablet 1 tablet = 150 mcg, By Mouth, Daily, # 90 tablet, 3 Refills, Maintenance, 01/04/18 14:14:41 EDT, Tablet Start Date: 01/04/18 Status: Ordered Methadone = 75 mg, By Mouth, Daily, 0 Refills, Maintenance, 03/24/15 21:41:17 Start Date: 03/24/15 Status: Ordered senna - oral tablet 2 tablet, By Mouth, Daily at bedtime, PRN for constipation, # 180 tablet, 0 Refills, Maintenance, 11/13/17 9:52:29 EDT, Tablet Start Date: 11/13/17 Status: Ordered Problem List Condition Confirmation Course Effective Dates Status Health Status Informant Gastritis, erosive 1 Confirmed Active Allergic rhinitis Confirmed Active Cholecystectomy 2 Confirmed 11/09/17 Active Chronic depression Confirmed Active Constipation Confirmed Active Constipation Confirmed Active Neurotic excoriations 3 Confirmed Active Dysphagia Confirmed Active Epigastric pain Confirmed Active Postprandial epigastric pain Confirmed Active Fibromyalgia syndrome Confirmed Active Acid reflux disease Confirmed Active Glucose intolerance Confirmed 05/01/11 Active H/O heartburn Confirmed Active Headache disorder Confirmed 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 AC joint OA and fibromyalgia 4 Confirmed Active Hypercholesterolemia Confirmed Active Hypertension Confirmed 04/26/15 Active Hypothyroid 5 Confirmed Active Insomnia Confirmed 04/26/15 Active Iron deficiency anemia Confirmed 05/29/08 Active Menometrorrhagia Confirmed Active Osteoarthritis of AC (acromioclavicular) joint Confirmed Active Panic attacks Confirmed Active *[facility] [phone] 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 Narcotic contract w Dr Roxane Quintana 5By hx Grave's d s/p radioactive iodine therapy 6left s/p arthroscopy decompression by Dr Hermilo Richards on 02/20/07 Social History Social History Type Response Smoking Status Current every day sm oker; Type: Cigarettes; Other: 6 CIGARETTES A DAY; Tobacco use times per day: 8; Started at age: 14; entered on: 11/23/15 Sex Patient Care team information Care Team Personnel Name: Anais Lamb Position: [facility] RN Member Role: Primary Care Nurse Name: Not on Staff, PCP Position: [facility] Physician (General Medicine) Member Role: PCP Name: Geovani Cortes RN Position: [facility] RN Member Role: Primary Care Nurse Care Team Related Persons Name: SNEHAL FRANKEL Address: [address] [place] [address] Name: KOBI MAX Address: home [address] [place] [address] Name: TRACY MAX Address: home [address] [place] [id number]
--- OUTSIDE RECORDS SUMMARY | 2023-10-02 18:11 | XMS_ITS | Continuity of Care Document ---
Author Organization [facility] Address [address] [place] [address]- Care Team Providers Care Birth Certificate Clerk Name Role Phone David MCGINNIS, Roxane Primary Care Physician Encounter [facility] [place] Date(s): 11/15/17 - 06/06/19 [facility] [address] [place] [id number] [facility] Discharge Disposition: A-D/C Home Attending Physician: Xi MCGINNIS(Hem/Onc), Seven Kuhn Admitting Physician: Fausto Keenan MD Referring Physician: Roxane Hernandez MD Allergies, Adverse Reactions, Alerts Substance Reaction [...] stomach, 02/07/18 19:30:20 EDT, Route toPharmacy Electronically, [id number]... Start Date: 02/07/18 Stop Date: 03/09/18 Status: Ordered Colace sodium 100 mg oral capsule 100 mg, 1, capsule, By Mouth, 2 times a day, PRN, # 60 capsule, Refills 0, Tot. Refills 0, Maintenance, for constipation, 11/13/17 9:52:39 EDT, Route to Pharmacy Electronically, [id number], [facility]/pharmacy #[id number] Start Date: 11/13/17 Status: Ordered Dexilant [...] Date: 11/13/17 Status: Ordered Problem List Condition Effective Dates Status Health Status Inform ant Gastritis, erosive(Confirmed) 1 Active Allergic rhinitis(Confirmed) Active Cholecystectomy(Confirmed) 2 11/09/17 Active Chronic depression(Confirmed) Active Constipation(Confirmed) Active Constipation(Confirmed) Active Neurotic excoriations(Confirmed) 3 Active Dysphagia(Confirmed) Active Epigastric pain(Confirmed) Active Postprandial epigastric pain(Confirmed) Active Fibromyalgia syndrome(Confirmed) Active Acid reflux disease(Confirmed) Active Glucose intolerance(Confirmed) 05/01/11 Active H/O heartburn(Confirmed) Active Headache disorder(Confirmed) 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 AC joint OA and fibromyalgia(Confirmed) 4 Active Hypercholesterolemia(Confirmed) Active Hypertension(Confirmed) 04/26/15 Active Hypothyroid(Confirmed) 5 Active Insomnia(Confirmed) 04/26/15 Active Iron deficiency anemia(Confirmed) 05/29/08 Active Menometrorrhagia(Confirmed) Active Osteoarthritis of AC (acromioclavicular) joint(Confirmed) Active Panic attacks(Confirmed) Active *[facility] [phone] CARE MANAG ER Suzie Calderon(Confirmed) Active Plantar fasciitis of right foot(Confirmed) 04/26/15 Active Restless leg syndrome(Confirmed) 04/26/15 Active Smoker(Confirmed) Active Subacromial impingement(Confirmed) 2005 Active Narcotic contract with Dr Qiana Brumfield(Confirmed) 01/14/09 Active Odynophagia(Confirmed) Active Varicella immune(Confirmed) 12/27/09 Active Vitamin D deficiency(Confirmed) 02/22/09 Active 1EGD 04/23/15 by Krish Heart erosive gastritis 2cholecystectomy on November 09, 2017 at [facility] 2ry to acute cholecystitis 3face 4AC joint OA and fibromyalgia. Narcotic contract w Dr Roxane Quintana 5By hx Grave's d s/p radioactive iodine therapy 6left s/p arthroscopy decompression by Dr Hermilo Richards on 02/20/07 Vital Signs Most recent to oldest [Reference Range]: 1 2 3 Height 160.7 cm (12/17/17 10:53 AM) 160.7 cm (12/17/17 10:19 AM) 160.7 cm (11/21/17 2:08 PM) Weight 67.2 kg (11/21/17 2:08 PM) Oxygen Saturation [94-100 %] 98 % (12/17/17 10:53 AM) Pulse Rate [55-90 bpm] 78 bpm (12/17/17 10:53 AM) 71 bpm (11/21/17 2:08 PM) Body Mass Index [18.5-24.99] 26.02 *H* (11/21/17 2:08 PM) Blood Pressure [90-138/55-84 mm Hg] 145/95mm Hg *H* (12/17/17 10:53 AM) 153/97mm Hg *H* (11/21/17 2:08 PM) Temperature [96.8-100.4 DegF] 98.2 DegF (12/17/17 10:53 AM) 98.2 DegF (11/21/17 2:08 PM) Mode of Delivery (Oxygen) Room air (12/17/17 10:53 AM) Blood pressure sites Arm, right (12/17/17 10:53 AM) Arm, left (11/21/17 2:08 PM) Temperature Route Oral (12/17/17 10:53 AM) Oral (12/17/17 10:19 AM) Oral (11/21/17 2:08 PM) Dry Weight 67.2 kg (11/21/17 2:08 PM) Weight Obtained Via Standing scale (11/21/17 2:08 PM) Dry Weight Obtained Via Standing scale (11/21/17 2:08 PM) Social History Social History Type Response Smoking Status Current every day jessica mariscal; Type: Cigarettes; Other: 6 CIGARETTES A DAY; Tobacco use times per day: 8; Started at age: 14; entered on: 11/23/15 Sex
--- OUTSIDE RECORDS SUMMARY | 2023-10-02 18:12 | XMS_ITS | Continuity of Care Document ---
Author Organization [facility] ter Address [address] [place] [id number]- Care Team Providers Care Sales Support Rep Name Role Phone Not on Staff, PCP Primary Care Physician Unavail able [facility]counter [facility] Date[facility]s): 05/[facility]/23 - 06/03/[address] [address] Attending Physician: Marko Myrick MD Admitting Physician: Marko Myrick MD Referring Physician: Marko Myrick MD Allergies, Adverse Reactions, Alerts Substance Reaction Severity Status ibuprofen Erosive gastritis Active fentanyl Headache Persistent Moderate Active buPROPion Seizure Active morphine Palpitations Stomach ache Nausea Chest [...] stomach, 02/07/18 19:30:20 EDT, Route toPharmacy Electronically, [id number]... Start Date: 02/07/18 Stop Date: 03/09/18 Status: Ordered Colace sodium 100 mg oral capsule 100 mg, 1, capsule, By Mouth, 2 times a day, PRN, # 60 capsule, Refills 0, Tot. 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 AC joint OA and fibromyalgia 4 Confirmed Active Hypercholesterolemia Confirmed Active Hypertension Confirmed 04/26/15 Active Hypothyroid 5 Confirmed Active Insomnia Confirmed 04/26/15 Active Iron deficiency anemia Confirmed 05/29/08 Active Menometrorrhagia Confirmed Active Osteoarthritis of AC (acromioclavicular) joint Confirmed Active Panic attacks Confirmed Active *[facility] [phone] 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 Plantar fasciitis of right foot Confirmed 04/26/15 Active Restless leg syndrome Confirmed 04/26/15 Active Smoker Confirmed Active Subacromial impingement 6 Confirmed 2005 Active Narcotic contract with Dr Roxane Brumfield Confirmed 01/14/09 Active Odynophagia Confirmed Active Varicella immune Confirmed 12/27/09 Active Vitamin D deficiency Confirmed 02/22/09 Active 1EGD 04/23/15 by Krish Heart erosive gastritis 2cholecystectomy on November 09, 2017 at [facility] 2ry to acute cholecystitis 3face 4AC joint [...] Nurse Name: Not on Staff, PCP Position: [facility] Physician (General Medicine) Member Role: PCP Name: Geovani Cortes RN Position: [facility] RN Member Role: Primary Care Nurse Care Team Related Persons Name: SNEHAL FRANKEL Address: [address] [place] [address] Name: KOBI MAX Address: home [address] [place] [address] Name: TRACY MAX Address: home [address] [place] [id number]
--- OUTSIDE RECORDS SUMMARY | 2023-10-02 18:12 | XMS_ITS | Continuity of Care Document ---
Author Organization [facility] Address Unknown Care Team Providers Care Remote Medical Coder Name Role Phone David MCGINNIS, Roxane Primary Care Physician [facility]counter [facility] Date(s): 02/08/21 - 03/10/21 [facility] Allergies, Adverse Reactions, Alerts Substance Reaction Severity [...] stomach, 02/07/18 19:30:20 EDT, Route toPharmacy Electronically, [id number]... Start Date: 02/07/18 Stop Date: 03/09/18 Status: Ordered Colace sodium 100 mg oral capsule 100 mg, 1, capsule, By Mouth, 2 times a day, PRN, # 60 capsule, Refills 0, Tot. 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 AC joint OA and fibromyalgia(Confirmed) 4 Active Hypercholesterolemia(Confirmed) Active Hypertension(Confirmed) 04/26/15 Active Hypothyroid(Confirmed) 5 Active Insomnia(Confirmed) 04/26/15 Active Iron deficiency anemia(Confirmed) 05/29/08 Active Menometrorrhagia(Confirmed) Active Osteoarthritis of AC (acromioclavicular) joint(Confirmed) Active Panic attacks(Confirmed) Active *[facility] [phone] CARE MANAG ER Suzie Calderon(Confirmed) Active Plantar fasciitis of right foot(Confirmed) 04/26/15 Active Restless leg syndrome(Confirmed) 04/26/15 Active Smoker(Confirmed) Active Subacromial impingement(Confirmed) 2005 Active Narcotic contract with Dr Qiana Brumfield(Confirmed) 01/14/09 Active Odynophagia(Confirmed) Active Varicella immune(Confirmed) 12/27/09 Active Vitamin D deficiency(Confirmed) 02/22/09 Active 1EGD 04/23/15 by Krish Heart erosive gastritis 2cholecystectomy on November 09, 2017 at [facility] 2ry to acute cholecystitis 3face 4AC joint [...]
--- OUTSIDE RECORDS SUMMARY | 2023-10-02 18:12 | XMS_ITS | Continuity of Care Document ---
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 Start Date: 02/07/18 Stop Date: 03/09/18 Status: Ordered Colace sodium 100 mg oral capsule 100 mg, 1, capsule, By Mouth, 2 times a day, PRN, # 60 capsule, Refills 0, Tot. 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 AC joint OA and fibromyalgia 4 Confirmed Active Hypercholesterolemia Confirmed Active Hypertension Confirmed 04/26/15 Active Hypothyroid 5 Confirmed Active Insomnia Confirmed 04/26/15 Active Iron deficiency anemia Confirmed 05/29/08 Active Menometrorrhagia Confirmed Active Osteoarthritis of AC (acromioclavicular) joint Confirmed Active Panic attacks Confirmed Active *[facility] [phone] X RAY TECH Suzie Calderon Confirmed Active Plantar fasciitis of right foot Confirmed 04/26/15 Active Restless leg syndrome Confirmed 04/26/15 Active Smoker Confirmed Active Subacromial impingement 6 Confirmed 2005 Active Narcotic contract with Dr Roxane Brumfield Confirmed 01/14/09 Active Odynophagia Confirmed Active Varicella immune Confirmed 12/27/09 Active Vitamin D deficiency Confirmed 02/22/09 Active 1EGD 04/23/15 by Krish Heart erosive gastritis 2cholecystectomy on November 09, 2017 at [facility] 2ry to acute cholecystitis 3face 4AC joint OA and fibromyalgia. Narcotic contract w Dr Roxane Quintana 5By hx Grave's d s/p radioactive iodine therapy 6left s/p arthroscopy decompression by Dr Hermilo Richards on 02/20/07 Results Radiology Reports * Exam Date Time Procedure Performing Provider Status 12/25/22 10:23 AM IR End of Case Report Mo dified IR End of Case Report Vital Signs Most recent to oldest [Reference Range]: 1 Height 160.7 cm (12/25/22 9:01 AM) Weight 76.5 kg (12/25/22 9:01 AM) Oxygen Saturation [94-100 %] 100 % (12/25/22 9:02 AM) Pulse Rate [55-90 bpm] 62 bpm (12/25/22 9:02 AM) Blood Pressure [90-138/55-84 mm Hg] 135/ 92mm Hg (12/25/22 9:02 AM) Respiratory Rate [16-30 br/min] 18 br/mi n (12/25/22 9:02 AM) Temperature [96.8-100.4 DegF] 97.5 DegF (12/25/22 9:02 AM) Mode of Delivery (Oxygen) Room air (12/25/22 9:02 AM) Blood pressure sites Arm, left (12/25/22 9:02 AM) Temperature Route Oral (12/25/22 9:02 AM) Dry Weight 76.5 kg (12/25/22 9:01 AM) Social History Social History Type Response Smoking Status Current every day sm oker; Type: Cigarettes; Other: 6 CIGARETTES A DAY; Tobacco use times per day: 8; Started at age: 14; entered on: 11/23/15 Sex Hospital Progress note * Esthela Melgar: SIGN, MODIFY, PERFORM, SIGN, VERIFY Event Display: Progress Note Hospital Authored Date: [id number] Patient: SNEHAL OBRIEN Age: 47 years Sex: Female : 1975 Associated Diagnoses: None Author: Esthela Melgar Findings Nursing Data IV Lines. : IV Lines. 12/25/2022 9:00 EDT Right Forearm distal 22 gauge Peripheral IV Activity: Start Peripheral IV Insertion Date/Time: 12/25/2022 9:18 Peripheral IV Number of Attempts: 1 Peripheral IV Site Assessment: Flushes Well, Good Blood return Peripheral IV Dressing: Semi-permeable membrane . Vital Signs : VITAL SIGNS SECTION 12/25/2022 9:02 EDT Temperature 97.5 DegF Temperature Route Oral Pulse Rate 62 bpm Respiratory Rate 18 br/min Systolic Blood Pressure 135 mm Hg Diastolic Blood Pressure 92 mm Hg H Blood pressure sites Arm, left Mean Arterial Pressure 106 mm Hg Pulse Pressure 43 mm Hg Oxygen Saturation 100 % Mode of Delivery (Oxygen) Room air . Narrative/Incidental Biopsy Pt arrived on unit at 900am NPO status confirmed Labs sent . Patient aware of planned procedure. Call farr within . * Esthela Melgar: PERFORM Event Display: Progress Note Hospital Authored Date: patient returned from planned procedure VSS no procedure accomplished patient continues to complainof pain Note * Esthela Melgar: PERFORM Event Display: Discharge/Transfer Note Hospital Authored Date: Nursing Discharge Note Entered On: 12/25/2022 12:11 EDT Performed On: 12/25/2022 12:10 EDT by Esthela Melgar Nursing Discharge Note 2 Discharge Time : 12/25/2022 12:01 EDT Discharge Level of Care at Discharge : Home/[facility] Patient Left Unit Via : Wheelchair Patient Accompanied Off Unit with : Significant other DC Instructions Provided & Signed by Pt : Yes Patient Understands D/C Instructions : Yes Patient Instructions Discharge Signed : Yes Did Pt have Specialty Bed or Wound Vac : No Esthela Melgar - 12/25/2022 12:10 EDT Patient Care team information Care Team Personnel Name: Anais Lamb Position: S Onco RN Member Role: Primary Care Nurse Name: Duglas Boucher Position: Reference Physician Member Role: PCP Address: Address: [address] [place] [address] [address] [place], [place] [address] Name: Geovani Cortes RN Position: S RN Member Role: Primary Care Nurse Care Team Related Persons Name: SNEHAL FRANKEL Address: [address] [place] [address] Name: KOBI MAX Address: [address] [place] [address] Name: TRACY MAX Address: home [address] [place] [address]
[2023-10-02 18:59] LABS: MANUAL DIFF FLAG NO
[2023-10-02 19:02] LABS: Basophils Percent Auto 0.3 % (0-2); Eosinophils Absolute Auto 0.3 X10*3/uL (0.0-0.4); Eosinophils Percent Auto 4.1 % (0-4); Hematocrit 39.1 % (37.0-47.0); Hemoglobin 12.4 g/dl (12.0-16.0); Imm Gran Abs Auto 0.01 X10*3/uL (0.00-0.03); Imm Gran Pct Auto 0.1 % (0.0-0.4); Lymphocytes Absolute Auto 3.3 X10*3/uL (1.2-4.9); Lymphocytes Percent Auto 42.3 % (20-40); Mean Corpuscular HGB Conc 31.7 g/dl (31.0-35.0); Mean Corpuscular Hemoglobin 28.1 pg (27.0-33.0); Mean Corpuscular Volume 88.5 fL (80.0-98.0); Mean Platelet Volume 9.8 fL (9.4-12.3); Monocytes Absolute Auto 0.6 X10*3/uL (0.1-1.2); Monocytes Percent Auto 7.2 % (2-11); Neutrophils Absolute Auto 3.6 x10*3/uL (2.0-8.3); Platelet Count 207 X10*3/uL (160-400); Red Blood Count 4.42 X10*6/uL (4.20-5.50); Red Cell Distribution Width 13.8 % (11.0-16.0); White Blood Count 7.7 X10*3/uL (4.8-10.8)
[2023-10-02 19:10] LABS: INTERNATIONAL NORM RATIO 0.9 (0.9-1.1); Prothrombin Time 10.7 SEC (11.1-13.3)
[2023-10-02 19:19] LABS: Ethanol < 10 mg/dL
[2023-10-02 19:21] LABS: Alanine Aminotransferase 12 U/L (0-31); Albumin Level 3.8 g/dL (3.5-5.0); Alkaline Phosphatase 73 U/L (39-117); Anion Gap 12 (12-20); Aspartate Amino Transferase 15 U/L (5-31); Bilirubin Direct < 0.2 mg/dL (0.0-0.5); Bilirubin Total 0.2 mg/dL (0.0-1.0); Blood Urea Nitrogen 11 mg/dL (9-16); Carbon Dioxide 28 mmol/L (22-29); Chloride 106 mmol/L (96-108); Creatinine Clr Calc Pharmacy 89.1; Estimated Glomerular Filt Rate > 60; Glucose Random 84 mg/dL (60-115); Potassium 3.9 mmol/L (3.3-5.1); Sodium 142 mmol/L (135-145); Total Protein 6.3 g/dL (6.5-8.0)
[2023-10-02 19:23] LABS: Amphetamine Screen Urine Not Detected (Not Detect); Barbiturates, Urine Not Detected (Not Detect); Benzodiazepines Screen Urine Not Detected (Not Detect); Buprenorphine Scr Not Detected (Not Detect); Cannabinoid Screen Urine Not Detected (Not Detect); Cocaine Screen Urine Not Detected (Not Detect); Fentanyl, urine Not Detected (Not Detect); Methadone Screen, Urine Positive (Not Detect); Opiate Screen Urine POSITIVE (Not Detect); Oxycodone Screen Urine Positive (Not Detect); Phencyclidine Screen Urine Not Detected (Not Detect)
[2023-10-02 19:24] LABS: B Type Natriuretic Peptide 109 pg/mL (<100)
[2023-10-02 19:30] LABS: Troponin-I High Sensitivity < 2.7 ng/L (<3.5-17.0)
--- NOTE | 2023-10-02 19:31 | PC.NURSE ---
Assumed care at 1900. labs drawn and sent. IV secured and reinforced.
[2023-10-02 19:34] VITALS: BP 166/98; PULSE 71; RESP 24; TEMP 36.4; O2SAT 97
--- NOTE | 2023-10-02 19:42 | PC.NURSE ---
Assumed care of pt at 1900. Pt reporting chest tightness remains at 5 but feels like she cant take a full breath. O2 sat 98% on room air. Lung sounds diminished.
--- NOTE | 2023-10-02 21:51 | PC.NURSE ---
Pt c/o 02/04 mid-sternal chest tightness, sharp in nature. HR:64, RR:`8, P:155/104 O2: 96% on room air. made aware and went to see pt. Dr. Duarte ordered Flexeril but pt refused reporting she would sleep for days, I don't want any muscle relaxers . made aware and med returned. Pt asked tp speak with MD again d/t being told to be careful with her cocaine use since she last used 5 days ago. This RN educated on the effects of cocaine on the heart and why MD would have told her that. aware.
[2023-10-02 22:07] VITALS: BP 155/104; PULSE 64; RESP 18; TEMP 36.4; O2SAT 96
== END 2023-10-02 22:10 | disposition home or self-care (01) ==
PROVIDERS: Emergency Provider Emergency Medicine; PCP Physician Assistant
DX: R07.89 Other chest pain (principal)
CPT/HCPCS: 36415; 71045; 80048; 80076; 80307; 83735; 83880; 84484; 85025; 85610; 93005; 99283; 99285

== ENCOUNTER → 2023-10-02 17:25 | Outpatient (BNV) | payer MEDICARE, MEDICAID, SELFPAY | PROVIDERS: Emergency Provider Emergency Medicine; PCP Physician Assistant; Visit Provider Internal Medicine Cardiovascular Disease | DX: R94.31 Abnormal electrocardiogram [ECG] [EKG] (principal) | CPT/HCPCS: 93010 ==

== ENCOUNTER 2023-12-26 10:04 | Outpatient (AMB) | payer MEDICARE, MEDICAID, SELFPAY ==
[2023-12-26 11:16] VITALS: BP 126/80; PULSE 56; O2SAT 95; BMI 31.5
--- NOTE | 2023-12-26 11:16 | A.OFFPC_ITS ---
Vital Signs 12/26/23 11:16 Height 5 ft 4 in Weight 183 lb 6 oz BMI 31.5 BP 126/80 Blood Pressure Location Lt brachial Position Sitting Pulse 56 Pulse Source Pulse Oximeter Pulse Oximetry (%) 95 Oxygen Delivery Method Room Air Intake Visit Reasons: physical Intake Note: Patient is here today for a physical. Support Director Required: No Accompanied by: Self / Same As Patient Allergies fentanyl Allergy (Intermediate, Verified 12/26/23 11:39) Rash morphine Allergy (Intermediate, Verified 12/26/23 11:39) Shortness of Breath ibuprofen [From Motrin] Adverse Reaction (Verified 12/26/23 11:39) Stomach Upset Medication List - Last Reconciled 12/26/23 by Duglas Levine PA-C amlodipine 5 mg PO DAILY 90 days blood pressure test kit-large As directed clonidine HCl 0.1 mg PO TID 30 days cyclobenzaprine 5 mg PO TID PRN furosemide (Lasix) 40 mg PO DAILY hydromorphone 4 mg PO Q4H PRN hydroxyzine HCl 25 mg PO BID PRN 30 days levothyroxine 125 mcg PO DAILY 30 days lisinopril 20 mg PO DAILY 30 days omeprazole 20 mg PO DAILY 90 days Tobacco use date assessed: 08/28/23 Dental Screening Dental Screen Date: 08/28/23 HPI physical HPI Details Patient is a 48-year-old female here today for routine annual physical She does have a past medical history significant for hypertension, Hypothyroidism, ( Graves), , GERD, Peptic ulcer disease, tobacco dependency, opiate dependency, rheumatoid arthritis and fibromyalgia. She is currently homeless and living temporarily in a alf in [facility] .. Has multiple complaints today including ongoing acne, increased anxiety as of lately due to personal issues. She also reports she has followed up with [place] [facility] inspector about her thyroid was told she a throat issue (large hilum) and should follow-up with an ENT specialist. concerns-->Recently found to have a renal mass , has been followed by urology and oncology. No biopsy done. Repeat MRI imaging showing decreased in the size of her renal mass which is reassuring. There is question of a hemorrhagic cyst. .. HTN: Blood pressure today in office acceptable. Patient continues on enalapril and amlodipine with good effect on her blood pressure.. .. Elevated liver enzymes: Original lab testing showing elevated LFTs. Repeat testing of her LFTs had stabilized. Likely elevated due to antibiotic use of time. .. Opiate dependency: Continues on methadone for methadone clinic nearby. She reports she is on blind dosing and is slowly weaning her dose. Of note was found to have prolonged QT while at last ER visit was given Mag sulfate. .. Graves: Most recent TSH slightly elevated. Has had a radio ablation of her thyroid in the past, Has been having voice changes , swallowing difficulty and a fullness sensation in her neck. Has follow-up with endocrinology and noted to have cervical lymphadenopathy. Has been referred to endocrine surgeon in [place] Colonoscopy: needs colonoscopy .. Mammogram: Need for mammogram-willing to do mammogram ,, Vaccine: Needs Tdap and PCV though declines today [employer]: followed by [facility] here in [place]. [facility] Medical History Cervical lymphadenopathy Cervical cancer screening Fibromyalgia Thyroid nodule Graves disease section wound complication Surgical History Status post cholecystectomy H/O bilateral breast reduction surgery Family History Mother Depression Anxiety Fibromyalgia Cataract associated with other syndromes Thyroid disorder Father Stroke (cerebrum) Thyroid disorder Family/Other Breast cancer Ovarian cancer Social History (Updated 12/26/23 @ 11:47 by Duglas Levine PA-C) Household Members: Spouse and Children Housing: Apartment Are you a primary personal carer to a significant other at home: No Do you presently have visiting nurse or other home services: No Alcohol intake: never Patient Tobacco Use Status: Current everyday Tobacco user Cigarettes Per Day: 5 e-Cigarette/Vaping Use: Never Used Substance Use Type: Crack/Cocaine service: No Current occupational status: disabled Cognitive needs: No Hearing needs: No Vision needs: Yes (Pt will need to be refer to an eye doctor. ) Female Reproductive History Menstrual Age of Menarche: 9 Questionnaire Thrive Questionnaire Date Thrive assessed: 08/28/23 AMISHA-7 AMB Questionnaire AMISHA-7 Date AMISHA - 7 assessed: 08/28/23 Source: Developed by Drs. Willian Diaz, Christina Burton, Dave Brooks and colleagues, with an educational tae from [employer]. Review of Systems Const Denies body aches, Denies chills, Denies excessive sweating, Denies fatigue, Denies fever(s) and Denies headache(s) Eyes Denies blurry vision ENT Denies dysphagia, Denies vertigo, Denies dizziness, Denies headache(s), Denies hearing loss and Denies tinnitus Card Denies chest pain, Denies chest pain with activity, Denies syncope, Denies irregular heart rhythm and Denies dyspnea Resp Denies chest congestion, Denies cough, Denies hemoptysis, Denies dyspnea and Denies wheezing GI Denies abdominal pain, Denies melena, Denies hematochezia, Denies coffee ground emesis, Denies dysphagia, Denies diarrhea, Denies nausea and Denies vomiting Denies urinary frequency, Denies dysuria, Denies urinary hesitancy and Denies urinary urgency Musc Denies arthralgias, Denies limited range of motion, Denies muscle cramps and Denies muscle weakness Skin/Breast Denies rash and Denies skin ulcer Neuro Denies Abnormal speech present, Denies confusion, Denies vertigo, Denies dizziness, Denies syncope, Denies headache(s), Denies memory loss and Denies seizure-like activity Psych Denies anxiety, Denies confusion, Denies depression, Denies memory loss, Denies panic attacks and Denies paranoia Endo Denies excessive sweating, Denies fatigue, Denies flushing, Denies polydipsia and Denies polyuria Aller/Immun Denies wheezing Physical exam (Primary Care) Vital Signs: Last Vital Signs Pulse 56 12/26/23 11:16 BP 126/80 12/26/23 11:16 Pulse Ox 95 12/26/23 11:16 Oxygen Delivery Method Room Air 12/26/23 11:16 BMI result Body Mass Index 31.5 Tobacco/Smoking Status: Tobacco use Status Tobacco use date assessed 08/28/23 12/26/23 11:17 Patient Tobacco Use Status Current everyday Tobacco 12/26/23 11:47 e-Cigarette/Vaping Use Never Used 12/26/23 11:47 Thrive Assessment: Date of Thrive Assessment Date Thrive assessed 08/28/23 12/26/23 11:17 Const General: cooperative, comfortable, no acute distress, alert and awake; No confusion Orientation/consciousness: oriented to person, oriented to place, patient oriented x3 and No confusion HENAL Head: Yes normocephalic Ears: external ears normal and TM's normal bilaterally Face and sinus: No sinus tenderness Mouth: Normal oral and palatal mucosa present and tongue normal Teeth and gingiva: dentition normal and gingiva normal Throat: Yes posterior oropharynx normal, Yes tonsils normal and Yes uvula midline Eyes Conjunctivae: conjunctivae normal Sclerae: sclerae normal Pupils: Equal, round and reactive pupils present EOM: EOMs intact bilaterally Direct Ophthalmoscopy: No no photophobia Neck Neck: Yes no lymphadenopathy, No tender and Yes no JVD Thyroid: Thyroid normal Carotids: no bruits Chest Chest palpation & inspection: no tenderness Resp Effort & Inspection: normal respiratory effort, no audible wheezes, not labored and no stridor Auscultation: no crackles, no rales, no rhonchi and no wheezes Cardio Jugular venous distension: no JVD Rate: regular rate, not bradycardic and not tachycardic Rhythm: regular rhythm Bruits: no carotid bruits Peripheral pulses: Peripheral pulses 2+ throughout GI Inspection: Yes normal to inspection, No abdominal wall ecchymosis and No visible herniation Palpation (GI): Soft to palpation, nontender, no guarding, not rigid and No hepatosplenomegaly present Auscultation: normoactive bowel sounds General: Yes no CVA tenderness Back/Spine/Pelvis Back: no CVA tenderness and No back tenderness Cervical Spine: cervical ROM normal Thoracic/Lumbar Spine: thoracic and lumbar spine normal to inspection, straight leg raise negative bilaterally, No thoraco-lumbar ROM limited and No lumbar spinal tenderness Skin Lesions: no lesions Rashes: no rashes Wounds: no wounds Neuro General: oriented to person, oriented to place, patient oriented x3, CN's II-XI intact bilaterally and No confusion Cranial nerves: Yes Equal, round and reactive pupils present and Yes Normal accommodation reflex present Cognition (Neuro): normal cognition Speech: No Abnormal speech present Gait exam (Neuro): Normal gait present Motor exam (neuro): 5/5 motor strength present throughout Extrem Right upper extremity: full ROM; no cyanosis Left upper extremity: full ROM; no cyanosis Right lower extremity: no edema Left lower extremity: no edema Psych Appearance: grossly normal Mental Status: mental status grossly normal Affect: normal affect Attitude: cooperative Thought process: Normal thought process present Assessment and Plan Assessment & Plan (1) Annual physical exam: Code(s): Z00.00 - Encounter for general adult medical examination without abnormal findings (2) Graves disease: Code(s): E05.00 - Thyrotoxicosis with diffuse goiter without thyrotoxic crisis or storm Plan: Has a history of Graves disease. Has been on levothyroxine 175 mcg. Of note does have abnormal lymph nodes in cervical spine found on ultrasound of the thyroid. Does have a stable 3 cm nodule and has followed up with [place] endocrinology office whom does not recommend biopsy. Of note did have an enlarged hilum and was advised to follow up with ENT specialist. . (3) HTN (hypertension): Code(s): I10 - Essential (primary) hypertension Qualifiers: Hypertension type: primary hypertension Qualified Code(s): I10 - Essential (primary) hypertension Plan: Patient's blood pressure acceptable today in office. Will continue her current dose of antihypertensive medication with goal blood pressure to remain below 140/90 (4) Opiate dependence: Code(s): F11.20 - Opioid dependence, uncomplicated Qualifiers: Substance use status: in remission Qualified Code(s): F11.21 - Opioid dependence, in remission Plan: Patient continues to follow a methadone clinic. She reports she is reducing her dose slowly, she is on blind dosing at this time. (5) Tobacco dependence: Code(s): F17.200 - Nicotine dependence, unspecified, uncomplicated Plan: Patient does report continues to smoke. She does admit to smoking 4-5 cigarettes per day. She has been under lot of stress and smoking as an outlet for her. She does not know she needs to quit smoking. She declines my offer to start nicotine replacement at this time. (6) Kidney neoplasm: Comment: See CT scans from [facility]. Code(s): D49.519 - Neoplasm of unspecified behavior of unspecified kidney Plan: Followed by an oncologist at [facility]. Currently under surveillance with serial imaging. Most recent imaging showed a decrease in size of the renal mass. ? Renal hemorrhagic cyst (7) Elevated LFTs: Code(s): R79.89 - Other specified abnormal findings of blood chemistry Plan: LFTs did normalize with repeat testing. Will continue to follow (8) Colon cancer screening: Code(s): Z12.11 - Encounter for screening for malignant neoplasm of colon Plan: Willing to do colonoscopy (9) Breast cancer screening: Code(s): Z12.39 - Encounter for other screening for malignant neoplasm of breast Qualifiers: Breast cancer screening modality: mammogram Qualified Code(s): Z12.31 - Encounter for screening mammogram for malignant neoplasm of breast Plan: Willing to get mammogram (10) Acne: Code(s): L70.9 - Acne, unspecified Qualifiers: Acne type: acne vulgaris Qualified Code(s): L70.0 - Acne vulgaris Plan: Will try facial cleanser for acne Orders: Orders MM screening mammo BI Today Z12.31 - Encounter for screening mammogram for malignant neoplasm of breast Complete Blood Count no Diff Today D64.9 - Anemia, unspecified TSH reflex Free T4 Today E89.0 - Postprocedural hypothyroidism Microalbumin, Random (w Creat) Today I10 - Essential (primary) hypertension Comprehensive [place]. Panel Fast Today I10 - Essential (primary) hypertension Referrals Ear/Nose/Throat Referral R59.0 - Localized enlarged lymph nodes Gastroenterology Referral Z12.11 - Encounter for screening for malignant neoplasm of colon Medications: New benzoyl peroxide 10% 1 appl topical Q OTHER DAY 30 days 227 grams 1RF L70.9 - Acne, unspecified Refilled omeprazole 20 mg PO DAILY 90 days 90 caps 1RF K27.9 - Peptic ulcer, site unspecified, unspecified as acute or chronic, without hemorrhage or perforation lisinopril 20 mg PO DAILY 30 days 30 tabs 1RF I10 - Essential (primary) hypertension levothyroxine 125 mcg PO DAILY 30 days 30 tabs 1RF E05.00 - Thyrotoxicosis with diffuse goiter without thyrotoxic crisis or storm Patient Instructions: Goal: Blood pressure to remain below 140/90 Barriers: Adherence to physical activity and healthy eating habits Coding Level of Care Code Est Pt Prev Care 40-64y(54423) Diagnoses Annual physical exam Z00.00 Graves disease E05.00 Primary hypertension I10 Hypertension type: primary hypertension Opioid dependence in remission F11.21 Substance use status: in remission Tobacco dependence F17.200 Kidney neoplasm D49.519 Elevated LFTs R79.89 Colon cancer screening Z12.11 Encounter for screening mammogram for malignant neoplasm of breast Z12.31 Breast cancer screening modality: mammogram Acne vulgaris L70.0 Acne type: acne vulgaris
== END 2023-12-26 11:59 | disposition home or self-care (01) ==
PROVIDERS: PCP Physician Assistant; Visit Provider Physician Assistant
DX: Z00.00 Encounter for general adult medical examination without abnormal findings (principal); E05.00 Thyrotoxicosis with diffuse goiter without thyrotoxic crisis or storm; I10 Essential (primary) hypertension; F11.21 Opioid dependence, in remission; F17.200 Nicotine dependence, unspecified, uncomplicated; D49.519 Neoplasm of unspecified behavior of unspecified kidney; R79.89 Other specified abnormal findings of blood chemistry; Z12.11 Encounter for screening for malignant neoplasm of colon; Z12.31 Encounter for screening mammogram for malignant neoplasm of breast; L70.0 Acne vulgaris
CPT/HCPCS: 99396

== ENCOUNTER 2024-10-07 10:41 | Outpatient (REF) | payer MEDICARE, MEDICAID, SELFPAY ==
[2024-10-07 11:09] LABS: Hematocrit 39.2 % (37.0-47.0); Hemoglobin 12.9 g/dl (12.0-16.0); Mean Corpuscular HGB Conc 32.9 g/dl (31.0-35.0); Mean Corpuscular Hemoglobin 29.7 pg (27.0-33.0); Mean Corpuscular Volume 90.1 fL (80.0-98.0); Mean Platelet Volume 9.9 fL (9.4-12.3); Platelet Count 273 X10*3/uL (160-400); Red Blood Count 4.35 X10*6/uL (4.20-5.50); Red Cell Distribution Width 15.2 % (11.0-16.0); White Blood Count 9.2 X10*3/uL (4.8-10.8)
--- OUTSIDE RECORDS SUMMARY | 2024-10-07 11:53 | XMS_ITS | Encounter Summary ---
Author Organization [employer] [facility] Address [address] [place] [address] Care Team Providers Care Felt Hat Flanging Operator Name Role Phone Duglas Levine Primary Care Provider Encounter Details Date Type Department Care Team Description 09/06/2023 Social Work [facility] Oncology Services [address] [place] [id number] Caterina Lepe [facility] Social History Tobacco Use Types Packs/Day Years Used Date Smoking Tobacco: Never Assessed Sex and Gender Information Value Date Recorded Sex Assigned at Female 11/06/2022 1:20 PM EDT Gender Identity Not on file Sexual Orientation Not on file Job Start Date Occupation Industry Not on file Not on file Not on file documented as of this encounter Plan of Treatment Not on file documented as of this encounter Visit Diagnoses Not on filedocumented in this encounter Care Teams Felt Hat Flanging Operator Relationship Specialty Start Date End Date Duglas Levine PA [address] [place] [phone] PCP - General Physician File Machine Operator 11/10/22 documented as of this encounter
--- OUTSIDE RECORDS SUMMARY | 2024-10-07 11:53 | XMS_ITS | Encounter Summary ---
Author Organization [employer] Address [address] [place] [address] Care Team Providers Care Truckload Owner Operator Name Role Phone Duglas Levine Primary Care Provider Encounter Details Date Type Department Care Team (Late st Contact Info) Description 03/25/2024 10:03 AM EDT Hospital Encounter [facility] CONVERSION ONLY Bryce Flowers MD [address] [place] [phone] Social History Tobacco Use Types Packs/Day Years Used Date Smoking Tobacco: Never Assessed Comments Unknown Sex and Gender Information Value Date Recorded Sex Assigned at Not on file Legal Sex Female 4:50 AM EST Gender Identity Not on file Sexual Orientation Not on file documented as of this encounter Last Filed Vital Signs Vital Sign Reading Time Taken Comments Blood Pressure 114/75 03/25/2024 10:16 AM EDT Sitting Left arm Pulse 64 03/25/2024 10:16 AM EDT Temperature - - Respiratory Rate - - Oxygen Saturation - - Inhaled Oxygen Concentration - - Weight 86.6 kg (191 lb) 03/25/2024 10:1 6 AM EDT Height 162.6 cm (5' 4 ) 07/25/2023 12:0 2 PM EST Body Mass Index 32.79 07/25/2023 12:02 PM EST documented in this encounter Progress Notes * Bryce Flowers MD - 03/25/2024 10:15 AM EDT Diagnosis/treatment: Right-sided renal mass. Interval history: The patient is a 48-year-old female who developed right costovertebral angle pain on 10/31/2022 prompting a visit to the [facility] ER on 11/01/2022. An A/P CT without contrast on 11/01/2022 showed a 7.0 x 5.2 x 4.9 cm thick-walled fluid- filled mass with moderate complexity and moderate surrounding perilesional mesenteric fatty infiltration in the lower pole of the right kidney, abscess versus malignancy. She reported chills at presentation. She was started on empiric IV antibiotics. An A/P CT with IV contrast on 11/02/2022 showed concordant findings with a complex cystic mass without internal enhancementwith surrounding perirenal mesenteric inflammation. An abdominal MRI with contrast on 11/04/2022 showed a 4.1 x 3.6 x 5.3 cm complex heterogeneous mass with mild enhancement of the lower portion of the right kidney with extensive right perinephric fat stranding, suspicious for renal cell carcinoma. A brain MRI with contrast on 12/01/2022 was unremarkable. A chest CT without contrast on 12/01/2022 was unremarkable. She reports persistent right costovertebral angle pain, which has lessened. She remained on methadone 74 mg. She took Dilaudid 2 mg, 2-3 pills at nighttime with reasonable pain control. An A/P CT with IV and without oral contrast on 12/27/2022 showed a decreasing 2.5 x 2.0 x 2.3 cm heterogeneous lesion in the lower pole of the right kidney. She developed left flank and left hip pain in late 12/2022, which resolved without intervention.. An A/P CT with IV and without oral contrast on 02/02/2023 showed a stable 2.7 x 2.6 x 2.0 cm heterogeneous lesion in the lower pole of the right kidney and was otherwise unremarkable. A bone scan on 02/16/2023 was unremarkable. An abdominal MRI with contrast on 06/14/2023 showed a decreasing 1.5 x 2.1 x 1.3 cm well-circumscribed lesion in the lower pole of the right kidney and was otherwise unremarkable. She developed bilateral lower extremity edema in early 08/2023 presented to the [place] ER. She was told to elevate her legs and the edema resolved and has not recurred. She presented to the [place] ER with chest pain and dyspnea on 10/02/2023, which resolved. A chest x-ray on 10/02/2023 showed low lung volumes with bronchovascular crowding and mild bibasilar subsegmental atelectasis and was otherwise unremarkable. An A/P CT without contrast on 10/19/2023 showed a slightly decreasing 1.4 x 1.3 x 1.0 cm exophytic mass in the lower pole of the right kidney, most consistent with involution of a previously hemorrhagic cyst. An abdominal MRI with contrast on 03/03/2024 showed a stable mass in the lower pole of the right kidney, consistent with a complex cyst. She reports persistent right costovertebral angle pain. She remains on methadone 62 mg with a slow taper. She takes oxycodone 10 mg as needed. Oxycodone 10 mg 1 pill provides no relief. Oxycodone 10 mg 3 pills provides good partial relief. She reports persistent chills. She reports daily headaches since late 09/2022, which resolved intervention.. She reports intermittent dizziness, which resolved without intervention.. She reports anorexia. She reports a 30 pound weight loss from 09/2021 to presentation, in part intentional. She reports intermittent nausea and vomiting. She reports osteoarthritis with chronic right hip and bilateral knee pain. She denies unusual bone pain. She denies visual changes. She denies abdominal pain. Past medical history: Polysubstance abuse, hypertension, hypothyroidism, gastric ulcer. Current medications: Levothyroxine, enalapril, methadone, Dilaudid. Allergies: Fentanyl causes a rash; ibuprofen causes upset stomach; morphine causes a warm sensation. Family history: There is no history of cancer in her grandparents, parents, 2 brothers, her 3 sisters. Social history: She is disabled. She is . She has 2 sons and 1 daughter. She denies alcohol use. She started smoking as a teenager and currently smokes 5-10 cigarettes/day. She has a history of cocaine and heroin use and is currently on methadone. Review of systems: The remainder of a 10 point review of systems was unremarkable. Physical examination: HEENT: Sclerae anicteric, normal oropharyngeal membrane. Neck: No lymphadenopathy. Lungs: Clear to auscultation. Heart: No murmurs. Abdomen: Soft, nontender, no organomegaly or masses. Extremities: No edema. Skin: No rash. Neurologic: Normal gait. Assessment/plan: The patient is a 48-year-old female who presented in 10/2022 with imaging findings showing a right lower pole renal mass, initially suspicious for renal cell cancer. An A/P CTs in early 12/2022 in early 01/2023 showed a decreasing but persistent heterogeneous lesion in the lower pole the right kidney. A bone scan in late 01/2023 was unremarkable. An abdominal MRI in mid-05/2023 showed a decreasing well-circumscribed mass in the lower pole of theright kidney, lowering the suspicion for renal cell cancer. A chest x-ray in early 09/2023 was unremarkable. An A/P CT in late 09/2023 showed a slightly decreasing exophytic mass in the lower pole of the rightkidney, most consistent with involution of a previously hemorrhagic cyst. An abdominal MRI in early 02/2024 showed a stable mass in the lower pole of the right kidney, consistent with a complex cyst. She is followed by Urology, who will monitor MRIs. She reports persistent right costovertebral angle pain. She remains on methadone 62 mg with a slow taper. She takes oxycodone 10 mg as needed. Oxycodone 10 mg 1 pill provides no relief. Oxycodone 10 mg 3 pills provides good partial relief. I prescribed oxycodone 30 mg every 4 hours as needed. I spent 30 minutes during this encounter, reviewing imaging studies, assessing the patient's pain, discussing pain medications, and providing counseling. documented in this encounter Plan of Treatment Upcoming Encounters Date Type Department Care Team (Late st Contact Info) Description 12/02/2024 2:00 PM EDT Office Visit [facility] Hematology Oncology [address] [place] [phone] Bryce Flowers MD [address] [place] [phone] documented as of this encounter Visit Diagnoses Not on filedocumented in this encounter Care Teams Truckload Owner Operator Relationship Specialty Start Date End Date Duglas Levine PA PCP - General 11/10/22 documented as of this encounter
--- OUTSIDE RECORDS SUMMARY | 2024-10-07 11:53 | XMS_ITS | Clinical Summary ---
Author Organization [employer] [facility] Address [address] [place] [address] Care Team Providers Care Blanket Inspector Name Role Phone Duglas Levine Primary Care Provider [phone] Allergies Active Allergy Reactions Criticality Noted Date Comments Fentanyl Rash Low 11/10/2022 Ibuprofen 11/10/2022 Bleeding ulcers Medications Medication Sig Dispensed Refills Start Date End Date Status clonazePAM (KlonoPIN) 1 MG disintegrating tablet Take 1 tablet (1 mg total) by mouth 2 (two) times a day as needed for anxiety. 60 tablet 0 01/30/2023 Active enalapril (VASOTEC) 20 MG tablet Take 2 tablets (40 mg total) by mouth daily. 0 Active methadone (DOLOPHINE) 10 MG/5ML solution Take 33 mL (66 mg total) by mouth daily. Takes 70 mg daily. 0 Active HYDROmorphone (DILAUDID) 4 MG tablet Take 1 tablet (4 mg total) by mouth every 4 (four) hours as needed for pain. 90 tablet 0 11/13/2023 Active levothyroxine (SYNTHROID) tablet 125 mcg Take 1 tablet (125 mcg total) by mouth every morning on an empty stomach. 0 Active atorvastatin (LIPITOR) tablet 20 mg Take 1 tablet (20 mg total) by mouth daily. 0 Active lisinopril (PRINIVIL,ZESTRIL) tablet 20 mg Take 1 tablet (20 mg total) by mouth daily. 0 Active LORazepam (ATIVAN) 1 MG tablet Take 1 tablet (1 mg total) by mouth every 6 (six) hours as needed. 30 tablet 0 03/10/2024 Active amoxicillin (AMOXIL) 500 MG capsule Take 1 capsule (500 mg total) by mouth 3 (three) times a day. 0 Active oxyCODONE (ROXICODONE) 30 MG immediate release tablet Take 1 tablet (30 mg total) by mouth every 4 (four) hours as needed for pain. Partial fill allowed, dose increased due to poorly controlled pain 120 tablet 0 03/25/2024 Active Active Problems Problem Noted Date Diagnosed Date Right kidney mass 11/27/2022 Social History Tobacco Use Types Packs/Day Years Used Date Smoking Tobacco: Never Assessed Sex and Gender Information Value Date Recorded Sex Assigned at Female 11/06/2022 1:20 PM EDT Gender Identity Not on file Sexual Orientation Not on file Job Start Date Occupation Industry Not on file Not on file Not on file Last Filed Vital Signs Vital Sign Reading Time Taken Comments Blood Pressure 114/75 03/25/2024 10:16 AM EDT Pulse 64 03/25/2024 10:16 AM EDT Temperature 35.8 ??C (96.4 ??F) 03/25/2024 10:16 AM E DT Respiratory Rate - - Oxygen Saturation 98% 03/25/2024 10:16 AM EDT Inhaled Oxygen Concentration - - Weight 86.6 kg (191 lb) 03/25/2024 10:16 AM EDT Height 162.6 cm (5' 4 ) 07/25/2023 12:02 PM EST Body Mass Index 32.79 07/25/2023 12:02 PM EST Plan of Treatment Health Maintenance Due Date Last Done Comments Hepatitis C Screening 1973 COVID-19 Vaccine (#1) 1973 Depression Screening 1985 BMI Counseling 1991 Preventative Health Evaluation 1991 Cervical Cancer Screening (Pap Smear) 1994 Colon Cancer Screening (Colonoscopy) 2018 Breast Cancer Screening (Mammogram) 2023 Shingrix-Zoster Vaccine (1 o f 2) 2023 Influenza Vaccine (#1) 2024 03/25/2012 DTap / Tdap / Td (2 - Td or Tdap) 04/26/2025 04/26/2015, 12/27/2007 Hepatitis B Vaccines Completed 03/25/2012, 09/25/2011, 02/21/2010 Pneumococcal Vaccine Aged Out 01/04/2018 No long er eligible based on patient's age to complete this topic RSV Ped < 20 months Aged Out No longe r eligible based on patient's age to complete this topic Care Teams Blanket Inspector Relationship Specialty Start Date End Date Duglas Levine PA [address] [place] [phone] PCP - General Physician Online Advertising Manager 11/10/22
--- OUTSIDE RECORDS SUMMARY | 2024-10-07 11:53 | XMS_ITS | Encounter Summary ---
Author Organization [employer] [facility] Address [address] [place] [address] Care Team Providers Care Lump Roller Name Role Phone Duglas Levine Primary Care Provider Encounter Details Date Type Department Care Team Description 11/16/2022 Social Work [facility] Oncology Services [address] [place] [address] Caterina Lepe [facility] Social History Tobacco Use Types Packs/Day Years Used Date Smoking Tobacco: Never Assessed Sex and Gender Information Value Date Recorded Sex Assigned at Female 11/06/2022 1:20 PM EDT Gender Identity Not on file Sexual Orientation Not on file Job Start Date Occupation Industry Not on file Not on file Not on file COVID-19 Exposure Response Date Recorded In the last 10 days, have yo u been in contact with someone who was confirmed or suspected to have Coronavirus/COVID-19? No / Unsure 11/10/2022 12:31 PM EDT documented as of this encounter Plan of Treatment Not on file documented as of this encounter Visit Diagnoses Not on filedocumented in this encounter Care Teams Lump Roller Relationship Specialty Start Date End Date Duglas Levine PA [address] [place] [phone] PCP - General Physician Compensation Supervisor 11/10/22 documented as of this encounter
--- OUTSIDE RECORDS SUMMARY | 2024-10-07 11:53 | XMS_ITS | Clinical Summary ---
Author Organization [email or web address] Address [address] [facility] [address] [place] [address] Care Team Providers Care Cyber Instructor Name Role Phone Unavailable Primary Care Provider Unavailabl e Allergies Active Allergy Reactions Criticality Noted Date Comments Fentanyl 08/13/2023 Ibuprofen 08/13/2023 Social History Tobacco Use Types Packs/Day Years Used Date Smoking Tobacco: Some Days Cigarettes Smokeless Tobacco: Current Tobacco Cessation:Ready to Q uit: Not Asked; Counseling Given: Not Answered Alcohol Use Standard Drinks/Week Comments Not Currently 0 (1 standard drink = 0.6 oz pur e alcohol) Comments Unknown Sex and Gender Information Value Date Recorded Sex Assigned at Female 08/08/2023 1:50 PM EDT Legal Sex Female 1:47 PM EDT Gender Identity Female 08/08/2023 1:50 PM EDT Sexual Orientation Straight 08/08/2023 1: 50 PM EDT Plan of Treatment Health Maintenance Due Date Last Done Comments CT Colonography 1973 Colonoscopy 1973 Colorectal Cancer Screening 1973 Dental Prophylaxis 1973 Depression Screening 1973 FIT DNA/Cologuard 1973 FIT 1973 FOBT 1973 HIV Screening 1973 SDOH Screening 1973 Sigmoidoscopy 1973 Alcohol/Substance Use Screening 1985 Family Planning (PISQ) 1988 Hepatitis C Screening 1991 DTaP/Tdap/Td Vaccines (1 - Tdap) 1992 Hepatitis B Vaccines (1 of 3 - 19+ 3-dose series) 1992 Pneumococcal Vaccine: 50+ Ye ars (1 of 2 - PCV) 1992 Pap Smear 1994 Cervical Cancer Screening 2003 HPV/Cotest 2003 Mammogram 2013 Zoster Vaccines (1 of 2) 2023 COVID-19 Vaccine (1 - 2023-2 5 season) 2024 Influenza Vaccine (#1) 2024 Dental Oral Exam 02/14/2024 08/13/2023 Tobacco Screening 08/12/2024 08/13/2023 Dental X-Ray: Bitewings 08/13/2024 08/13/2023 Dental X-Ray: Full Mouth 08/13/2026 08/13/2023 RSV Patients and Pa tients Aged 60 years or older (1 - 1-dose 75+ series) 2048 HIB Vaccines Aged Out No longer eligi ble based on patient's age to complete this topic HPV Vaccines Aged Out No longer eligi ble based on patient's age to complete this topic Hepatitis A Vaccines Aged Out No long er eligible based on patient's age to complete this topic IPV Vaccines Aged Out No longer eligi ble based on patient's age to complete this topic Meningococcal Vaccine Aged Out No sandra winsome eligible based on patient's age to complete this topic RSV under 20 months Aged Out No longe r eligible based on patient's age to complete this topic Rotavirus Vaccines Aged Out No longer eligible based on patient's age to complete this topic Procedures Procedure Name Priority Date/Time Associated Diagnosis Comments INTRAORAL - COMPLETE SERIES OF RADIOGRAPHIC IMAGES Routine 08/13/2023 3:00 PM EDT COMPREHENSIVE ORAL EVALUATION - NEW OR ESTABLISHED PATIENT Routine 08/13/2023 3:00 PM EDT from Last 3 Months or Most Recently Relevant to Health Maintenance Insurance [facility] MEDICAID STAND ADULT
--- OUTSIDE RECORDS SUMMARY | 2024-10-07 11:53 | XMS_ITS | Encounter Summary ---
[facility] Address [address] [place] [address] Care Team Providers Care Pan Cleaner Name Role Phone Duglas Levine Primary Care Provider [phone] Encounter Details Date Type Department Care Team (Late st Contact Info) Description 03/25/2024 10:15 AM EDT Hospital Encounter TH HISTORIC ENCOUNTERS EASTERN CONVERSION ONLY Bryce Flowers MD [address] [place] [phone] Social History Tobacco Use Types Packs/Day Years Used Date Smoking Tobacco: Never Assessed Comments Unknown Sex and Gender Information Value Date Recorded Sex Assigned at Not on file Legal Sex Female 4:50 AM EST Gender Identity Not on file Sexual Orientation Not on file documented as of this encounter Plan of Treatment Upcoming Encounters Date Type Department Care Team (Late st Contact Info) Description 12/02/2024 2:00 PM EDT Office Visit [facility] Hematology Oncology [address] [place] [phone] Bryce Flowers MD [address] [place] [phone] documented as of this encounter Visit Diagnoses Not on filedocumented in this encounter Care Teams Pan Cleaner Relationship Specialty Start Date End Date Duglas Levine PA PCP - General 11/10/22 documented as of this encounter
--- OUTSIDE RECORDS SUMMARY | 2024-10-07 11:53 | XMS_ITS | Clinical Summary ---
Author Organization [facility] Address [address] [place] [address] Phone Care Team Providers Care Elevator Service Mechanic Name Role Phone Duglas Levine Primary Care Provider Allergies Active Allergy Reactions Criticality Noted Date Comments Fentanyl 08/26/2012 Ibuprofen 08/26/2012 Morphine 08/26/2012 Medications LORazepam (ATIVAN) 1 mg tablet Take 1 tablet (1 mg total) by mouth every 6 (six) hours if needed for anxiety. Max Daily Amount: 4 mg 90 tablet 3 4 Active levothyroxine (SYNTHROID, LEVOTHROID) 75 mcg tablet Take 75 mcg by mouth daily. Active oxyCODONE (ROXICODONE) 30 mg immediate release tablet Take 1 tablet (30 mg total) by mouth every 4 (four) hours if needed for severe pain. Max Daily Amount: 180 mg 80 tablet 5 Active oxyCODONE (ROXICODONE) 30 mg immediate release tablet Take 1 tablet (30 mg total) by mouth every 4 (four) hours if needed for severe pain. Max Daily Amount: 180 mg 80 tablet 5 09/23/19 25 Discontinu ed(Reorder ) Active Problems Problem Noted Date Diagnosed Date Right kidney mass 07/29/2024 Panic attacks 08/26/2012 Insomnia 08/26/2012 Overview (05/02/2024): [facility] Hypothyroidism 08/26/2012 Fibromyalgia 08/26/2012 Overview (05/02/2024): Dr fiordaliza contreras Has been for PT/water therapy/muscle relaxants Encounters Date Type Department Care Team Description 07/29/2024 11:45 AM EST Office Visit [facility] Hematology Oncology [address] [place] [phone] Bryce Flowers MD Right kidney mass (Primary Dx) from Last 3 Months Immunizations Name Administration Dates Next Due Hepatitis B (Iwqowjt-U-Nipxa , Recombivax HB-Adult) 19yo and older 03/25/2012,09/25/2011,02/21/2010 Influenza trivalent, with pr eservative (Fluzone; Afluria) 6mo and older 03/25/2012 Td Tetanus diptheria (Tdvax) 7yo and older 12/26 Social History Tobacco Use Types Packs/Day Years Used Date Smoking Tobacco: Never Assessed Comments Unknown Sex and Gender Information Value Date Recorded Sex Assigned at Not on file Legal Sex Female 4:50 AM EST Gender Identity Not on file Sexual Orientation Not on file Obstetrics History Last Filed Vital Signs Vital Sign Reading Time Taken Comments Blood Pressure 214/128 07/29/2024 11:52 AM EST Pulse 80 07/29/2024 11:52 AM EST Temperature 36.1 ??C (97 ??F) 07/29/2024 11:52 AM EST Respiratory Rate - - Oxygen Saturation 96% 07/29/2024 11:52 AM EST Inhaled Oxygen Concentration - - Weight 81.6 kg (180 lb) 07/29/2024 11:52 AM EST Height 162.6 cm (5' 4 ) 07/25/2023 12:02 PM EST Body Mass Index 30.9 07/25/2023 12:02 PM EST Plan of Treatment Upcoming Encounters Date Type Department Care Team (Late st Contact Info) Description 12/02/2024 2:00 PM EDT Office Visit [facility] Hematology Oncology [address] [place] [phone] Bryce Flowers MD [address] [place] [phone] Health Maintenance Due Date Last Done Comments Breast Cancer Screening 1973 Cervical Cancer Screening: P ap Smear 1994 DTaP,Tdap,and Td Vaccines (2 - Td or Tdap) 12/26/2017 12/27/2007 Pneumococcal Vaccine: 50+ Years (1 of 1 - PCV) 2023 Zoster Vaccines (1 of 2) 2023 Colorectal Cancer Screening: Colonoscopy 06/26/2023 Depression Screening 06/26/2023 HIV Screening 06/26/2023 Hepatitis C Screening 06/26/2023 Medicare Annual Wellness Visit 06/26/2023 Social Influencers of Health Screening 06/26/2023 COVID-19 Vaccine ( - 2023-2 5 season) 2024 Influenza Vaccine (Season Ended) 2025 03/25/2012 Hepatitis B Vaccines Completed 03/25/2012, 09/25/2011, 02/21/2010 HIB Vaccines Aged Out No longer eligi [...] on patient's age to complete this topic MMR Vaccines Aged Out No longer eligi ble based on patient's age to complete this topic Meningococcal ACWY Vaccine Aged Out N o longer eligible based on patient's age to complete this topic Meningococcal B Vaccine Aged Out No l onger eligible based on patient's age to complete this topic Pneumococcal Vaccine: Pediatrics (0 to 5 Years) and At-Risk Patients (6 to 64 Years) Aged Out No longer eligible b ased on patient's age to complete this topic RSV Immunization Patients Under 20 months Aged Out No longer eligible b ased on patient's age to complete this topic Varicella Vaccines Aged Out No longer eligible based on patient's age to complete this topic Insurance MEDICARE MEDICAID - [place] Care Teams Elevator Service Mechanic Relationship Specialty Start Date End Date Duglas Levine PA PCP - General 11/10/22
[2024-10-07 12:18] LABS: Alanine Aminotransferase 66 U/L (0-31); Albumin Level 4.4 g/dL (3.5-5.0); Anion Gap 11 (12-20); Aspartate Amino Transferase 41 U/L (5-31); Bilirubin Total 0.3 mg/dL (0.0-1.0); Blood Urea Nitrogen 17 mg/dL (9-16); Calcium 10.5 mg/dL (8.4-10.2); Carbon Dioxide 33 mmol/L (22-29); Chloride 100 mmol/L (96-108); Estimated Glomerular Filt Rate 60; Glucose Fasting 93 mg/dL (60-99); Sodium 140 mmol/L (135-145); TSH reflex Free T4 26.69 uIU/mL (0.32-4.0); Total Protein 7.1 g/dL (6.5-8.0)
[2024-10-07 12:32] LABS: Creatinine Urine 62.45 mg/dL; Microalbum/Creatinine Ratio Ur 11.2 ug/mg cr (<30)
[2024-10-07 12:51] LABS: Alkaline Phosphatase 77 U/L (39-117)
[2024-10-07 13:06] LABS: Free T4 (Free Thyroxine) < 0.42 ng/dL (0.71-1.85)
== END 2024-10-07 10:42 | disposition home or self-care (01) ==
LOC: HO.LAB 10:41
PROVIDERS: PCP Physician Assistant; Visit Provider Physician Assistant
DX: I10 Essential (primary) hypertension (principal); G56.01 Carpal tunnel syndrome, right upper limb; F33.1 Major depressive disorder, recurrent, moderate; G43.909 Migraine, unspecified, not intractable, without status migrainosus; S09.90XA Unspecified injury of head, initial encounter; J30.1 Allergic rhinitis due to pollen; R29.90 Unspecified symptoms and signs involving the nervous system; Z79.899 Other long term (current) drug therapy; D64.9 Anemia, unspecified; E89.0 Postprocedural hypothyroidism
CPT/HCPCS: 36415; 80053; 82043; 82570; 84439; 84443; 85027; 96127; 99212

== ENCOUNTER 2024-10-07 11:19 | Outpatient (AMB) | payer MEDICARE, MEDICAID, SELFPAY ==
--- NOTE | 2024-10-07 11:43 | A.OFFPC_ITS ---
Vital Signs 10/07/24 11:47 Height 5 ft 4 in Weight 180 lb BMI 30.9 BP 146/96 H Blood Pressure Location Lt brachial Position Sitting Pulse 75 Pulse Source Pulse Oximeter Temp 97.1 F Temp Source Temporal Artery Scan Pulse Oximetry (%) 96 Intake Visit Reasons: 3 month f/w cancer Fingernail Former Required: No Accompanied by: Self / Same As Patient Allergies fentanyl Allergy (Intermediate, Verified 10/07/24 12:15) Rash morphine Allergy (Intermediate, Verified 10/07/24 12:15) Shortness of Breath ibuprofen [From Motrin] Adverse Reaction (Verified 10/07/24 12:15) Stomach Upset Medication List - Last Reconciled 10/07/24 by Duglas Levine PA-C amlodipine 5 mg PO DAILY 90 days benzoyl peroxide 10% 1 appl topical Q OTHER DAY 30 days blood pressure test kit-large As directed clonidine HCl 0.1 mg PO TID 30 days cyclobenzaprine 5 mg PO TID PRN furosemide (Lasix) 40 mg PO DAILY hydroxyzine HCl 25 mg PO BID PRN 30 days levothyroxine 125 mcg PO DAILY 30 days lisinopril 20 mg PO DAILY 30 days omeprazole 20 mg PO DAILY 90 days tolterodine ER 4 mg PO DAILY Tobacco use date assessed: 10/07/24 Dental Screening Dental Screen Date: 10/07/24 Did you have a dental visit in the last 12 months?: Yes Did you have a dental problem in the last 6 months where you did not have access to dental care?: No Was dental information given to patient?: Patient has dentist HPI 3 month f/w cancer HPI Details Patient is a 49-year-old female here today for follow-up visit.. She does have a past medical history significant for hypertension, Hypothyroidism, ( Graves), , GERD, Peptic ulcer disease, tobacco dependency, opiate dependency, rheumatoid arthritis and fibromyalgia. She is currently homeless and living temporarily in a alf in [facility] Concern-- > she reports she has been having pain radiating from her right shoulder into her elbow and into her hand. She reports some swelling in her hand. She was seen at an urgent care and given prednisone and told she had carpal tunnel syndrome. Has not got an EMG or nerve velocity testing. PLAN: We plan to get EMG testing and refer to orthopedic for possible surgical intervention for carpal tunnel syndrome. Also she reports about a month ago falling and hitting her head on a doorknob. She did not seek medical intervention. Since her fall she has been having headaches particularly originating in the area of her head trauma. Renal mass: Recently found to have a renal mass , has been followed by urology and oncology. No biopsy done. Repeat MRI imaging showing decreased in the size of her renal mass which is reassuring. There is question of a hemorrhagic cyst. She mentioned her repeat imaging that showed air pocket in the kidney. She is due for repeat ultrasound of kidneys with her urologist. .. HTN: Blood pressure today in office a slightly elevated. Patient continues on lisinopril and amlodipine with good effect on her blood pressure.. .. Elevated liver enzymes: Original lab testing showing elevated LFTs. Repeat testing of her LFTs had stabilized. Likely elevated due to antibiotic use of time. .. Opiate dependency: Continues on methadone for methadone clinic nearby. She reports she is on blind dosing and is slowly weaning her dose. Of note was found to have prolonged QT while at last ER visit was given Mag sulfate. .. Graves: Has had abnormal TSH . Has had a radio ablation of her thyroid in the past, Has been having voice changes , swallowing difficulty and a fullness sensation in her neck. Has follo w-up with endocrinology and noted to have cervical lymphadenopathy. Has been referred to endocrine surgeon in [facility] Medical History Cervical lymphadenopathy Cervical cancer screening Fibromyalgia Thyroid nodule Graves disease section wound complication Surgical History Status post cholecystectomy H/O bilateral breast reduction surgery Family History Mother Depression Anxiety Fibromyalgia Cataract associated with other syndromes Thyroid disorder Father Stroke (cerebrum) Thyroid disorder Family/Other Breast cancer Ovarian cancer Social History Household Members: Spouse and Children Housing: Apartment Are you a primary career development director to a significant other at home: No Do you presently have visiting nurse or other home services: No Alcohol intake: never Patient Tobacco Use Status: Current everyday Tobacco user Cigarettes Per Day: 5 e-Cigarette/Vaping Use: Never Used Substance Use Type: Crack/Cocaine service: No Current occupational status: disabled Cognitive needs: No Hearing needs: No Vision needs: Yes (Pt will need to be refer to an eye doctor. ) Female Reproductive History Menstrual Age of Menarche: 9 Questionnaire PHQ-9 Over the last 2 weeks, how often have you been bothered by any of the following problems? 1. Little interest or pleasure in doing things: nearly every day 2. Feeling down, depressed, or hopeless: nearly every day 3. Trouble falling or staying asleep, or sleeping too much: nearly every day 4. Feeling tired or having little energy: nearly every day 5. Poor appetite or overeating: nearly every day 6. Feeling bad about yourself - or that you are a failure or have let yourself or your family down: nearly every day 7. Trouble concentrating on things, such as reading the newspaper or watching television: nearly every day 8. Moving or speaking so slowly that other people could have noticed. Or the opposite - being so fidgety or restless that you have been moving around a lot more than usual: nearly every day 9. Thoughts that you would be better off or of hurting yourself in some way: not at all Total score: 24 Depression Screening Interpretation: Positive Depression Screening Follow-up: Existing condition and Community Mental Health Worker F/U Depression Screening Done: Yes 23637 - PHQ-9 Billing: Yes Source: Developed by Drs. Willian Diaz, Christina Burton, Dave Brooks and colleagues, with an educational tae from [employer]. Thrive Questionnaire Date Thrive assessed: 10/07/24 I am a: Patient What is your living situation today?: I do not have a steady places to live (Pt is renting a room and sometime does not feel safe.) Within the past 12 months, did the food you bought not last and you didn't have the money to get more?: Never true Within the past 12 months, did you worry whether your food would run out before you got money to buy more?: Never true Do you have trouble paying for medicines?: No Do you have trouble getting transportation to medical appointments?: No Do you have trouble paying your heating and electricity bill?: No Do you have trouble taking care of your child, family member or friend?: No Do you have trouble with day-to-day activities such as bathing, preparing meals, shopping, managing finances, etc.?: No Are you currently unemployed and looking for a job?: No Are you interested in more education?: No Please select the resources that you would like help with: None Currently or been in a relationship where the following occur: No concerns reported THRIVE Score: 1 AUDIT C Alcohol Use Questionnaire (AUDIT-C) 1. How often do you have a drink containing alcohol?: Never 3. How often do you have six or more drinks on one occasion?: Never Total Score: 0 AMISHA-7 AMB Questionnaire AMISHA-7 Date AMISHA - 7 assessed: 10/07/24 Feeling nervous, anxious, or on edge: 3 = Nearly every day Not being able to stop or control worryin = Nearly every day Worrying too much about different things: 3 = Nearly every day Trouble relaxin = Nearly every day Being so restless that it is hard to sit still: 3 = Nearly every day Becoming easily annoyed or irritable: 3 = Nearly every day Feeling afraid as if something awful might happen: 3 = Nearly every day Total AMISHA-7 score (0-4 normal; 5-9 mild; 10-14 moderate; 15-21 severe): 21 Source: Developed by Drs. Willian Diaz, Christina Burton, Dave Brooks and colleagues, with an educational tae from [employer]. AMISHA-7 Assessment Billing AMISHA-7 Assessment Tool: AMISHA-7 Assessment 39486 Physical exam (Primary Care) Vital Signs: Last Vital Signs Temp 97.1 F 10/07/24 11:47 Pulse 75 10/07/24 11:47 BP 146/96 H 10/07/24 11:47 Pulse Ox 96 10/07/24 11:47 BMI result Body Mass Index 30.9 Tobacco/Smoking Status: Tobacco use Status Tobacco use date assessed 10/07/24 10/07/24 11:52 Patient Tobacco Use Status Current everyday Tobacco 10/07/24 11:45 e-Cigarette/Vaping Use Never Used 10/07/24 11:45 PHQ-9: PHQ-9 Score PHQ-9: Total score 24 10/07/24 14:27 Depression Screening Interpretation: Positive Depression Screening Follow-up: Existing condition and Community Mental Health Worker F/U Thrive Assessment: Date of Thrive Assessment Date Thrive assessed 10/07/24 10/07/24 11:52 Currently or been in a relationship where the following occur: No concerns reported Coding Level of Care Code Est Pt Level 4 (28507) Diagnoses Primary hypertension I10 Hypertension type: primary hypertension Right carpal tunnel syndrome G56.01 MDD (major depressive disorder), recurrent episode, moderate F33.1 Migraine without status migrainosus, not intractable, unspecified migraine type G43.909 Migraine type: unspecified Status migrainosus presence: without status migrainosus Intractability: not intractable Traumatic injury of head with focal neurologic finding S09.90XA; R29.90 Seasonal allergic rhinitis due to pollen J30.1 Allergic rhinitis trigger: pollen Allergic rhinitis seasonality: seasonal Additional Codes AMISHA-7 Assessment Billing - AMISHA-7 Assessment Tool: AMISHA-7 Assessment 67345 ([id number]) PHQ-9 - 08931 - PHQ-9 Billing: Yes ([id number]) Assessment & Plan Assessment & Plan (1) HTN (hypertension): Code(s): I10 - Essential (primary) hypertension Category: Medical Qualifiers: Hypertension type: primary hypertension Qualified Code(s): I10 - Essential (primary) hypertension Plan: Patient's blood pressure elevated today in office. She continues with lisinopril 20 mg and amlodipine 5. She does not regularly monitor her blood pressure. Advised to start monitoring blood pressure more regularly to ensure normal readings at home Will consider increasing dose of amlodipine if blood pressures remain above 140/90. (2) Right carpal tunnel syndrome: Code(s): G56.01 - Carpal tunnel syndrome, right upper limb Category: Medical Plan: As per HPI patient has signs and symptoms consistent with a neuropathy of the right upper extremity, she is having pain swelling in some numbness in her hand wrist and forearm. Will send for EMG and nerve velocity testing to evaluate for cubital tunnel versus carpal tunnel syndrome. (3) MDD (major depressive disorder), recurrent episode, moderate: Code(s): F33.1 - Major depressive disorder, recurrent, moderate Category: Medical Plan: Patient's PHQ-9 score positive for depression which has been existing condition for her. She is not interested in mental health therapy at this time. Continues with the use of clonidine and hydroxyzine as needed for anxiety. (4) Migraines: Code(s): G43.909 - Migraine, unspecified, not intractable, without status migrainosus Category: Medical Qualifiers: Migraine type: unspecified Status migrainosus presence: without status migrainosus Intractability: not intractable Qualified Code(s): G43.909 - Migraine, unspecified, not intractable, without status migrainosus Plan: Patient reporting hip pain particularly over the area for trauma. As per HPI she suffered head trauma about a month ago hitting her head on a doorknob after a fall. She reports pain radiating from her parietal region to the left eye. Will send for CT imaging to evaluate for any intracranial pathology associated with this. Will supply patient with sumatriptan to use on the onset of the intermittent head pain/migraine type symptom. (5) Traumatic injury of head with focal neurologic finding: Code(s): S09.90XA - Unspecified injury of head, initial encounter; R29.90 - Unspecified symptoms and signs involving the nervous system Category: Medical Plan: As above (6) Allergic rhinitis: Code(s): J30.9 - Allergic rhinitis, unspecified Category: Medical Qualifiers: Allergic rhinitis trigger: pollen Allergic rhinitis seasonality: season al Qualified Code(s): J30.1 - Allergic rhinitis due to pollen Plan: Will supply with antihistamine to use daily during allergy season. Orders: Orders NE electromyogram (EMG) 10/07/24 G56.01 - Carpal tunnel syndrome, right upper limb NE nerve conduction velocity 10/07/24 G56.01 - Carpal tunnel syndrome, right upper limb CT head/brain wo IV con 10/07/24 R29.90 - Unspecified symptoms and signs involving the nervous system, S09.90XA - Unspecified injury of head, initial encounter Referrals Orthopedics Referral G56.01 - Carpal tunnel syndrome, right upper limb Medications: New sumatriptan succinate take 1 tab at onset of headache; if no relief may repeat 1 tab after at least 2 hrs; max = 4 tabs/24 hr PO 9 tabs 1RF 30 days R29.90 - Unspecified symptoms and signs involving the nervous system, S09.90XA - Unspecified injury of head, initial encounter loratadine 10 mg PO DAILY 30 tabs 1RF 30 days J30.9 - Allergic rhinitis, unspecified Refilled benzoyl peroxide 10% 1 appl topical Q OTHER DAY 227 grams 1RF 30 days L70.9 - Acne, unspecified
[2024-10-07 11:47] VITALS: BP 146/96; PULSE 75; TEMP 36.2; O2SAT 96; BMI 30.9
--- OUTSIDE RECORDS SUMMARY | 2024-10-07 12:48 | XMS_ITS | Clinical Summary ---
Author Organization [employer] Address [address] [facility] [address] [place] [address] Care Team Providers Care Loom Blower Name Role Phone Unavailable Primary Care Provider [...] Most Recently Relevant to Health Maintenance Insurance [facility] MEDICAID STAND ADULT
--- OUTSIDE RECORDS SUMMARY | 2024-10-07 12:48 | XMS_ITS | Encounter Summary ---
Author Organization [facility] [facility] Address [address] [place] [address] Care Team Providers Care House Cleaner Supervisor Name Role Phone Duglas Levine Primary Care Provider Encounter Details Date Type Department Care Team Description 11/16/2022 Social Work [facility] Oncology Services [address] [place] [address] Caterina Lepe [facility] Social History Tobacco Use Types Packs/Day Years [...] on filedocumented in this encounter Care Teams House Cleaner Supervisor Relationship Specialty Start Date End Date Duglas Levine PA [address] [place] [phone] PCP - General Physician Medical Asst 11/10/22 documented as of this encounter
--- OUTSIDE RECORDS SUMMARY | 2024-10-07 12:48 | XMS_ITS | Encounter Summary ---
Author Organization [facility] [employer] [facility] Address [address] [place] [address] Care Team Providers Care Roasterman Name Role Phone Duglas Levine Primary Care Provider Encounter Details Date Type Department Care Team Description 09/06/2023 Social Work [facility] Oncology Services [address] [place] [address] Caterina Lepe [facility] Social History Tobacco Use Types Packs/Day Years [...] on filedocumented in this encounter Care Teams Roasterman Relationship Specialty Start Date End Date Duglas Levine PA [address] [place] [phone] PCP - General Physician Wood Preserving Plant Laborer 11/10/22 documented as of this encounter
--- OUTSIDE RECORDS SUMMARY | 2024-10-07 12:48 | XMS_ITS | Clinical Summary ---
Author Organization [employer] [facility] Address [address] [place] [address] Care Team Providers Care Commercial Glazier Name Role Phone Duglas Levine Primary Care Provider [phone] Allergies Active Allergy Reactions Criticality Noted Date [...] age to complete this topic Care Teams Commercial Glazier Relationship Specialty Start Date End Date Duglas Levine PA [address] [place] [phone] PCP - General Physician Valet Cashier 11/10/22
== END 2024-10-07 13:06 | disposition home or self-care (01) ==
LOC: HO.HMCH 11:19
PROVIDERS: PCP Physician Assistant; Visit Provider Physician Assistant
DX: I10 Essential (primary) hypertension (principal); G56.01 Carpal tunnel syndrome, right upper limb; F33.1 Major depressive disorder, recurrent, moderate; G43.909 Migraine, unspecified, not intractable, without status migrainosus; S09.90XA Unspecified injury of head, initial encounter; R29.90 Unspecified symptoms and signs involving the nervous system; J30.1 Allergic rhinitis due to pollen

== ENCOUNTER 2024-10-17 13:44 | Outpatient (REF) | payer MEDICARE, MEDICAID, SELFPAY ==
--- NOTE | ~2024-10-17 | CT_ITS ---
EXAMINATION: CT HEAD WITHOUT CONTRAST CLINICAL INFORMATION: Headache after fall, rule out bleed. COMPARISON: None available. TECHNIQUE: Contiguous axial imaging was performed from the skull base to vertex without intravenous administration of contrast. This CT examination was performed using dose optimization techniques as appropriate, variously including the following: *Automated exposure control *Adjustment of mA and/or kV according to patient size (this includes techniques or standardized protocols for targeted exams where dose is matched to indication/reason for exam; i.e. extremities or head) *Use of iterative reconstruction technique FINDINGS: There is no evidence of intracranial hemorrhage or extra-axial fluid collection. There is no mass effect, or edema. No CT evidence of acute territorial infarct. Ventricles, sulci, and cisterns are normal in size and configuration for patient age. No hydrocephalus. No midline shift. Negative hyperdense MCA sign. Negative insular ribbon sign. No white matter abnormalities. Partial empty sella noted. Globes and orbital contents image normally. No extracranial soft tissue abnormalities. There is erosion of the membranous nasal septum noted. There is near complete opacification of the left frontal sinus, right greater than left anterior ethmoid sinuses, and left sphenoid sinus. Moderate mucosal thickening seen right maxillary sinus. Mastoids and tympanic spaces appear aerated normally. No suspicious bony abnormalities. There are no acute fractures evident. CT/CT head/brain wo IV con IMPRESSION: 1. No acute intracranial abnormality. 2. Near-complete opacification of the left sphenoid, right anterior ethmoid, and left frontal sinuses, in keeping with acute sinusitis in the appropriate clinical setting. Electronically signed by: Jessee Jackson MD 10/17/2024 03:32 PM EDT
--- OUTSIDE RECORDS SUMMARY | 2024-10-17 13:48 | XMS_ITS | Encounter Summary ---
Author Organization [facility] Address [address] [place] [address] Care Team Providers Care Dimmer Board Operator Name Role Phone Unavailable Primary Care Provider Unavailabl e Encounter Details Date Type Department Care Team (Late st Contact Info) Description 10/08/2024 Lab Requisition [facility] - Main Lab [address] [facility] [place] [phone] Lia Esposito PA [address] [facility] [address] [place] [address] Gross hematuria Social History Tobacco Use Types Packs/Day Years Used Date Smoking Tobacco: Never Assessed Comments Unknown Sex and Gender Information Value Date Recorded Sex Assigned at Not on file Legal Sex Female 4:50 AM EST Gender Identity Not on file Sexual Orientation Not on file documented as of this encounter Plan of Treatment Upcoming Encounters Date Type Department Care Team (Late Contact Info) Description 12/02/2024 2:00 PM EDT Office Visit [facility] Hematology Oncology [address] [place] [phone] Bryce Flowers MD [address] [place] [phone] Pending Results Name Type Priority Associated Diagnoses Date /Time Anatomic pathology outside consult Pathology and Cytology Routine Gross hematuria 10/02/2024 12:00 AM EDT documented as of this encounter Visit Diagnoses Diagnosis Gross hematuria documented in this encounter
== END 2024-10-17 13:45 | disposition home or self-care (01) ==
LOC: HO.CT 13:44
PROVIDERS: PCP Physician Assistant; Visit Provider Physician Assistant
DX: R29.90 Unspecified symptoms and signs involving the nervous system (principal); S09.90XA Unspecified injury of head, initial encounter
CPT/HCPCS: 70450

== ENCOUNTER → 2024-10-17 13:45 | Outpatient (BNV) | payer MEDICARE, MEDICAID, SELFPAY | PROVIDERS: PCP Physician Assistant; Visit Provider Radiology Diagnostic Radiology | DX: J01.30 Acute sphenoidal sinusitis, unspecified (principal); J01.10 Acute frontal sinusitis, unspecified | CPT/HCPCS: 70450 ==

== ENCOUNTER 2024-11-12 14:28 | Outpatient (REF) | payer MEDICARE, MEDICAID, SELFPAY ==
--- NOTE | 2024-11-12 14:30 | EMG_ITS ---
Chief complaint: Right hand pain and numbness Reason for referral: Evaluate for Carpal Tunnel Syndrome Referred by: Duglas WYATT Procedure done: Right upper extremity NCS/EMG Precautions and/or limitations: None The limb temperature was monitored continuously and remained between 32-36 degrees C during the performance of the NCS. Nerve Conduction Studies Anti Sensory Summary Table ?Stim Site NR Onset (ms) Norm Onset (ms) Peak (ms) Norm Peak (ms) O-P Amp (?V) Norm O-P Amp Site1 Site2 Delta-0 (ms) Dist (cm) Jose (m/s) Norm Jose (m/s) Right Median Anti Sensory (2nd Digit) Wrist ? 2.9 3.7 <3.6 18.3 >10 Wrist 2nd Digit 2.9 14.0 48 Right Radial Anti Sensory (Thumb) Forearm ? 1.8 2.4 <3.1 14.9 Forearm Thumb 1.8 0.0 Right Ulnar Anti Sensory (5th Digit) Wrist ? 2.3 3.1 <3.7 29.7 >15.0 Wrist 5th Digit 2.3 14.0 61 Motor Summary Table ?Stim Site NR Onset (ms) Norm Onset (ms) O-P Amp (mV) Norm O-P Amp iAmp (mV) Amp (1st) (%) Site1 Site2 Delta-0 (ms) Dist (cm) Jose (m/s) Norm Jose (m/s) Right Median Motor (Abd Poll Brev) Wrist ? 3.6 <3.9 9.2 >4.5 11.2 100.0 Elbow Wrist 3.8 19.5 51 >45 Elbow ? 7.4 9.1 11.1 98.9 Right Ulnar Motor (Abd Dig Minimi) Wrist ? 2.8 <3.0 7.3 >5 8.2 100.0 B Elbow Wrist 3.1 17.0 55 >45 B Elbow ? 5.9 7.1 8.2 97.3 A Elbow B Elbow 1.5 10.0 67 >45 A Elbow ? 7.4 6.7 7.8 91.8 EMG ?Side Muscle Nerve Root Ins Act Fibs Psw Amp Dur Poly Recrt Int Pat Comment Right 1stDorInt Ulnar C8-T1 Nml Nml Nml Nml Nml 0 Nml Complete Right FlexCarRad Median C6-7 Nml Nml Nml Nml Nml 0 Nml Complete Right Biceps Musculocut C5-6 Nml Nml Nml Nml Nml 0 Nml Complete Right Triceps Radial C6-7-8 Nml Nml Nml Nml Nml 0 Nml Complete Right Deltoid Axillary C5-6 Nml Nml Nml Nml Nml 0 Nml Complete FINDINGS: Right median sensory nerve showed mildly prolonged peak latency. All other nerves tested within normal. Concentric needle EMG was performed in selected muscles of the right upper extremity. Study did not reveal signs of electric abnormalities as shown in the table above. IMPRESSION: 1. This is an abnormal study. 2. There is electrodiagnostic evidence for right mild median neuropathy at the wrist, consistent with carpal tunnel syndrome. 3. There is no electrodiagnostic evidence for ulnar neuropathy, brachial plexopathy, or cervical radiculopathy. Thank you for your kind referral. Amanda Dover MD, KARISSA Board Certified, [place] Board of Physical Medicine and Rehabilitation (ABPMR) Board Certified, [place] Board of Electrodiagnostic Medicine (ABEM) [place] [id number] [facility]
--- OUTSIDE RECORDS SUMMARY | 2024-11-12 16:36 | XMS_ITS | Encounter Summary ---
Author Organization [facility] Address [address] [place] [address] Care Team Providers Care Hunter Guide Name Role Phone Unavailable Primary Care Provider Unavailabl e Encounter Details Date Type Department Care Team (Late Contact Info) Description 10/08/[address] [facility] - Main Lab [address] [facility] [place] [phone] Lia Esposito PA [address] [facility] [address] [place] [address] Gross hematuria Social History Tobacco Use Types [...] Description 12/02/2024 2:00 PM EDT Office Visit Hematology Oncology [address] [place] [phone] Bryce Flowers MD [address] [place] [address] documented as of this encounter Procedures Procedure Name Priority Date/Time Associated Diagnosis Comments AP OUTSIDE CONSULT Routine 10/02/2024 12 :00 AM EDT Gross hematuria documented in this encounter Results * Anatomic pathology outside consult (10/02/2024 12:00 AM EDT) Final Diagnosis A. Urine, Voided, [id number]: Negative for high grade urothelial carcinoma. Results of UroVysion fluorescence in situ hybridization (FISH) testing: CEP3: Normal CEP7: Normal CEP17: Normal LSI 9p21: Normal Interpretation: Normal profile Controls stained appropriately. Note: The results are intended as a screening device and should be interpreted in association with other clinical and pathological findings. 10/22/2024 11:57 AM EDT [facility] Clinical Information Gross hematuria R31.0 Urine Cytology/FISH (now) 10/22/2024 11:57 AM EDT [facility] Gross Description A. Urine, Voided, [id number]: Received one ThinPrep slide for cytology and one ThinPrep slide for UroVysion FISH 10/22/2024 11:57 AM EDT [facility] Disclaimer Unless otherwise specified, all tissue is 10% NB formalin fixed and paraffin embedded. Technical pathology services provided by [facility] at [address] [place] [address] [address], [place] [address] (CLIA #[id number]/Yesica Taveras MD, Flask Handler) 10/22/2024 11:57 AM EDT [facility] Tissue Urine specimen from urethra / Unknown 10/02/2024 10/08/2024 2:16 PM EDT us Lia [facility] PATHOLOGY ORDERABLES Final Result [facility]) [facility] [address] [place] [address], documented in this encounter Visit Diagnoses Diagnosis Gross hematuria documented in this encounter
== END 2024-11-12 14:29 | disposition home or self-care (01) ==
LOC: HO.NEURO 14:28
PROVIDERS: PCP Physician Assistant; Visit Provider Physician Assistant
DX: G56.01 Carpal tunnel syndrome, right upper limb (principal); R94.131 Abnormal electromyogram [EMG]
CPT/HCPCS: 95886; 95909

== ENCOUNTER → 2024-11-12 14:30 | Outpatient (BNV) | payer MEDICARE, MEDICAID, SELFPAY | PROVIDERS: PCP Physician Assistant; Visit Provider Physical Medicine & Rehabilitation | DX: G56.01 Carpal tunnel syndrome, right upper limb (principal) | CPT/HCPCS: 95886; 95909 ==

== ENCOUNTER 2024-11-18 08:24 | Outpatient (AMB) | payer MEDICARE, MEDICAID, SELFPAY ==
--- OUTSIDE RECORDS SUMMARY | 2024-11-18 08:38 | XMS_ITS | Encounter Summary ---
Author Organization [facility] Address [address] [place] [address] Care Team Providers Care Parts Department Manager Name Role Phone Unavailable Primary Care Provider Unavailabl e Encounter Details Date Type Department Care Team (Late Contact Info) Description 10/08/2024 Lab Requisition [facility] - Main Lab [address] [facility] [place] [phone] Lia Esposito PA [address] [facility] [address] [place] [address] Gross hematuria Social History Tobacco Use Types [...] Description 12/02/2024 2:00 PM EDT Office Visit [facility] Hematology Oncology [address] [place] [phone] Bryce Flowers MD [address] [place] [address] documented as of this encounter Procedures Procedure Name Priority Date/Time Associated Diagnosis Comments AP OUTSIDE CONSULT Routine 10/02/2024 12 :00 AM EDT Gross hematuria documented in this encounter Results * Anatomic pathology outside consult (10/02/2024 12:00 AM EDT) Final Diagnosis A. Urine, Voided, [id number]: Negative for high grade urothelial carcinoma. Results of UroVysion fluorescence in situ hybridization (FISH) testing: CEP3: Normal CEP7: Normal CEP17: Normal LSI 9p21: Normal Interpretation: Normal profile Controls stained appropriately. Note: The results are intended as a screening device and should be interpreted in association with other clinical and pathological findings. 10/22/2024 11:57 AM EDT [facility] Clinical Information Gross hematuria R31.0 Urine Cytology/FISH (now) 10/22/2024 11:57 AM EDT [facility] Gross Description A. Urine, Voided, [id number]: Received one ThinPrep slide for cytology and one ThinPrep slide for UroVysion FISH 10/22/2024 11:57 AM EDT [facility] Disclaimer Unless otherwise specified, all tissue is 10% NB formalin fixed and paraffin embedded. Technical pathology services provided by [facility] at [address] [place] [address] [address], [place] [address] (CLIA #[id number]/Yesica Taveras MD, Photographic Technician) 10/22/2024 11:57 AM EDT [facility] Tissue Urine specimen from urethra / Unknown 10/02/2024 10/08/2024 2:16 PM EDT us Lia [facility] PATHOLOGY ORDERABLES Final Result [facility] [address] [place] [address], documented in this encounter Visit Diagnoses Diagnosis Gross hematuria documented in this encounter
--- NOTE | 2024-11-18 08:39 | A.OFFPC_ITS ---
Vital Signs 11/18/24 08:40 Height 5 ft 4 in Weight 175 lb 8 oz BMI 30.1 BP 132/80 Blood Pressure Location Lt brachial Position Sitting Pulse 78 Pulse Source Pulse Oximeter Temp 97.1 F Temp Source Temporal Artery Scan Pulse Oximetry (%) 98 Oxygen Delivery Method Room Air Intake Visit Reasons: discuss referral Protective Signal Repairer Required: No Accompanied by: Self / Same As Patient Allergies fentanyl Allergy (Intermediate, Verified 11/18/24 08:53) Rash morphine Allergy (Intermediate, Verified 11/18/24 08:53) Shortness of Breath ibuprofen (From Motrin) Adverse Reaction (Verified 11/18/24 08:53) Stomach Upset Medication List - Last Reconciled 11/18/24 by Duglas Levine PA-C amlodipine 5 mg PO DAILY 90 days benzoyl peroxide 10% 1 appl topical Q OTHER DAY 30 days blood pressure test kit-large As directed cetirizine (All Day Allergy (cetirizine)) 10 mg PO DAILY PRN 30 days clonidine HCl 0.1 mg PO TID 30 days cyclobenzaprine 5 mg PO TID PRN furosemide (Lasix) 40 mg PO DAILY hydroxyzine HCl 25 mg PO BID PRN 30 days levothyroxine 125 mcg PO DAILY 30 days lisinopril 20 mg PO DAILY 30 days omeprazole 20 mg PO DAILY 90 days sumatriptan succinate take 1 tab at onset of headache; if no relief may repeat 1 tab after at least 2 hrs; max = 4 tabs/24 hr PO 30 days tolterodine ER 4 mg PO DAILY Tobacco use date assessed: 10/07/24 Dental Screening Dental Screen Date: 10/07/24 HPI discuss referral HPI Details The patient is a 49-year-old female presenting with carpal tunnel syndrome. The carpal tunnel syndrome was initially noticed when the patient experienced pain originating from the upper arm, which progressively worsened over months, leading to thumb immobility and significant discomfort. 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 The patient has been referred for surgical intervention to alleviate symptoms. [facility] Medical History Cervical lymphadenopathy Cervical cancer screening Fibromyalgia Thyroid nodule Graves disease section wound complication Surgical History Status post cholecystectomy H/O bilateral breast reduction surgery Family History Mother Depression Anxiety Fibromyalgia Cataract associated with other syndromes Thyroid disorder Father Stroke (cerebrum) Thyroid disorder Family/Other Breast cancer Ovarian cancer Social History Household Members: Spouse and Children Housing: Apartment Are you a primary health care / medical job titles to a significant other at home: No Do you presently have visiting nurse or other home services: No Alcohol intake: never Patient Tobacco Use Status: Current everyday Tobacco user Cigarettes Per Day: 5 e-Cigarette/Vaping Use: Never Used Substance Use Type: Crack/Cocaine service: No Current occupational status: disabled Cognitive needs: No Hearing needs: No Vision needs: Yes (Pt will need to be refer to an eye doctor. ) Female Reproductive History Menstrual Age of Menarche: 9 Questionnaire PHQ-9 Over the last 2 weeks, how often have you been bothered by any of the following problems? 1. Little interest or pleasure in doing things: more than half the days 2. Feeling down, depressed, or hopeless: nearly every day 3. Trouble falling or staying asleep, or sleeping too much: nearly every day 4. Feeling tired or having little energy: nearly every day 5. Poor appetite or overeating: nearly every day 6. Feeling bad about yourself - or that you are a failure or have let yourself or your family down: nearly every day 7. Trouble concentrating on things, such as reading the newspaper or watching television: nearly every day 8. Moving or speaking so slowly that other people could have noticed. Or the opposite - being so fidgety or restless that you have been moving around a lot more than usual: more than half the days 9. Thoughts that you would be better off or of hurting yourself in some way: not at all Total score: 22 66432 - PHQ-9 Billing: Yes Source: Developed by Drs. Willian Diaz, Christina Burton, Dave Brooks and colleagues, with an educational tae from [employer]. Thrive Questionnaire Date Thrive assessed: 11/18/24 I am a: Patient What is your living situation today?: I do not have a steady places to live I am temporarily staying with others Within the past 12 months, did the food you bought not last and you didn't have the money to get more?: Sometimes True Within the past 12 months, did you worry whether your food would run out before you got money to buy more?: Sometimes True Do you have trouble paying for medicines?: No Do you have trouble getting transportation to medical appointments?: No Do you have trouble paying your heating and electricity bill?: I choose not to answer this question Do you have trouble taking care of your child, family member or friend?: No Do you have trouble with day-to-day activities such as bathing, preparing meals, shopping, managing finances, etc.?: Yes Are you currently unemployed and looking for a job?: No Are you interested in more education?: Yes THRIVE Score: 3 AUDIT C Alcohol Use Questionnaire (AUDIT-C) 1. How often do you have a drink containing alcohol?: Never 3. How often do you have six or more drinks on one occasion?: Never Total Score: 0 AMISHA-7 AMB Questionnaire AMISHA-7 Date AMISHA - 7 assessed: 11/18/24 Feeling nervous, anxious, or on edge: 3 = Nearly every day Not being able to stop or control worryin = Nearly every day Worrying too much about different things: 3 = Nearly every day Trouble relaxin = Nearly every day Being so restless that it is hard to sit still: 3 = Nearly every day Becoming easily annoyed or irritable: 3 = Nearly every day Feeling afraid as if something awful might happen: 3 = Nearly every day Total AMISHA-7 score (0-4 normal; 5-9 mild; 10-14 moderate; 15-21 severe): 21 Source: Developed by Drs. Willian Diaz, Christina Burton, Dave Brooks and colleagues, with an educational tae from [employer]. AMISHA-7 Assessment Billing AMISHA-7 Assessment Tool: AMISHA-7 Assessment 07627 Review of Systems Const Denies headache(s) Eyes Denies loss of vision ENT Denies vertigo, Denies dizziness, Denies headache(s) and Denies sore throat Card Denies chest pain, Denies leg edema and Denies lightheadedness Resp Denies cough, Denies hemoptysis and Denies wheezing GI Denies abdominal pain, Denies melena, Denies constipation, Denies diarrhea and Denies vomiting Denies urinary frequency, Denies dysuria and Denies urinary urgency Musc Denies arthralgias, Denies joint swelling, Denies numbness and Denies tingling Neuro Denies Abnormal speech present, Denies behavioral changes, Denies vertigo, Denies dizziness, Denies headache(s), Denies loss of vision, Denies memory loss, Denies numbness and Denies tingling Psych Denies anxiety, Denies behavioral changes, Denies depression, Denies memory loss and Denies panic attacks Jean/Lymph Denies easy bleeding and Denies easy bruising Aller/Immun Denies wheezing Physical exam (Primary Care) Vital Signs: Last Vital Signs Temp 97.1 F 11/18/24 08:40 Pulse 78 11/18/24 08:40 BP 132/80 11/18/24 08:40 Pulse Ox 98 11/18/24 08:40 Oxygen Delivery Method Room Air 11/18/24 08:40 BMI result Body Mass Index 30.1 Tobacco/Smoking Status: Tobacco use Status Tobacco use date assessed 10/07/24 11/18/24 08:42 Patient Tobacco Use Status Current everyday Tobacco 11/18/24 08:42 e-Cigarette/Vaping Use Never Used 11/18/24 08:42 PHQ-9: PHQ-9 Score PHQ-9: Total score 22 11/18/24 08:48 Thrive Assessment: Date of Thrive Assessment Date Thrive assessed 11/18/24 11/18/24 08:48 Const General: healthy appearing, no acute distress, alert and awake Nutritional Appearance: well nourished Orientation/consciousness: oriented to person, oriented to place and oriented to time [facility] Ears: TM's normal bilaterally General nose exam: Normal nasal mucous membranes and turbinates present Eyes Conjunctivae: conjunctivae normal Sclerae: sclerae normal Pupils: Equal, round and reactive pupils present Neck Neck: Yes no lymphadenopathy and Yes no JVD Thyroid: Thyroid normal Carotids: no bruits Resp Effort & Inspection: normal respiratory effort and not tachypneic Auscultation: no crackles, no rales, no rhonchi and no wheezes Cardio Rate: regular rate Rhythm: regular rhythm Heart sounds: no murmurs and normal S1 and S2 GI Palpation (GI): Soft to palpation, nontender, no hepatomegaly and no splenomegaly Auscultation: normal bowel sounds Skin General skin exam: no rashes or lesions noted and dry skin Neuro General: oriented to person, oriented to place and oriented to time Cranial nerves: Yes Equal, round and reactive pupils present Speech: No Abnormal speech present Gait exam (Neuro): Normal gait present Motor exam (neuro): no tremor noted Extrem Right upper extremity: full ROM Left upper extremity: full ROM Right lower extremity: full ROM; no edema Left lower extremity: full ROM; no edema Psych Mental Status: mental status grossly normal Speech and movement: Normal speech and movement present Affect: normal affect Attitude: cooperative Thought process: Normal thought process present Coding Level of Care Code Est Pt Level 3 (85564) Diagnoses Right carpal tunnel syndrome G56.01 Additional Codes AMISHA-7 Assessment Billing - AMISHA-7 Assessment Tool: AMISHA-7 Assessment 55438 ([id number]) PHQ-9 - 30614 - PHQ-9 Billing: Yes ([id number]) Assessment & Plan Assessment & Plan (1) Right carpal tunnel syndrome: Code(s): G56.01 - Carpal tunnel syndrome, right upper limb Category: Medical Plan: The patient has been diagnosed with carpal tunnel syndrome, confirmed by EMG showing right medial neuropathy of the wrist. A referral for surgical intervention has been made to address the symptoms. Orders: Referrals Orthopedics Referral G56.01 - Carpal tunnel syndrome, right upper limb Medications: Refilled benzoyl peroxide 10% 1 appl topical Q OTHER DAY 227 grams 1RF 30 days L70.9 - Acne, unspecified sumatriptan succinate take 1 tab at onset of headache; if no relief may repeat 1 tab after at least 2 hrs; max = 4 tabs/24 hr PO 9 tabs 1RF 30 days R29.90 - Unspecified symptoms and signs involving the nervous system, S09.90XA - Unspecified injury of head, initial encounter levothyroxine 125 mcg PO DAILY 30 tabs 3RF 30 days E05.00 - Thyrotoxicosis with diffuse goiter without thyrotoxic crisis or storm
[2024-11-18 08:40] VITALS: BP 132/80; PULSE 78; TEMP 36.2; O2SAT 98; BMI 30.1
== END 2024-11-18 09:08 | disposition home or self-care (01) ==
LOC: HO.HMCH 08:25
PROVIDERS: PCP Physician Assistant; Visit Provider Physician Assistant
DX: G56.01 Carpal tunnel syndrome, right upper limb (principal)

== ENCOUNTER 2024-11-18 08:24 | Outpatient (REF) | payer MEDICARE, MEDICAID, SELFPAY ==
[2024-11-18 10:25] LABS: TSH reflex Free T4 18.97 uIU/mL (0.32-4.0)
[2024-11-18 11:05] LABS: Free T4 (Free Thyroxine) 0.81 ng/dL (0.71-1.85)
== END 2024-11-18 08:25 | disposition home or self-care (01) ==
LOC: HO.LAB 08:24
PROVIDERS: PCP Physician Assistant; Visit Provider Physician Assistant
DX: G56.01 Carpal tunnel syndrome, right upper limb (principal); L70.9 Acne, unspecified; E05.00 Thyrotoxicosis with diffuse goiter without thyrotoxic crisis or storm; Z79.899 Other long term (current) drug therapy; Z13.30 Encounter for screening examination for mental health and behavioral disorders, unspecified
CPT/HCPCS: 36415; 84439; 84443; 96127; 99212